=== PATIENT | female | born 1965 ===

== ENCOUNTER 2023-05-19 18:08 | Emergency (ER) | payer OTHER, SELFPAY ==
[2023-05-19 18:13] VITALS: BP 124/78; PULSE 76; O2SAT 97
[2023-05-19 18:23] VITALS: BP 107/57; PULSE 68; RESP 16; TEMP 36.8; O2SAT 97; BMI 22.9
--- NOTE | 2023-05-19 18:34 | ECG_ITS ---
Test Reason : ABD PAIN Blood Pressure : / mmHG Vent. Rate : 069 BPM Atrial Rate : 069 BPM P-R Int : 152 ms QRS Dur : 084 ms QT Int : 406 ms P-R-T Axes : 017 000 032 degrees QTc Int : 435 ms Normal sinus rhythm Normal ECG When compared with ECG of 22-JUN-2007 04:10, No significant change was found Referred By: Malia Ramirez Electronically Signed By:NJ SETHI MD
--- NOTE | 2023-05-19 18:38 | ED_ITS ---
HPI - General Adult General Chief complaint: General Medical Stated complaint: abd, headache, per ems Time Seen by Provider: 05/19/23 18:32 Source: patient Mode of arrival: ambulatory Limitations: no limitations History of Present Illness HPI narrative: Patient comes to the emergency room bones early [facility]. Patient is being treated for SI. Patient came to the ED complaining of 3 days of headache, anxiety, abdominal pressure. Patient states that she has been very anxious, has experienced multiple losses in her family and is under a lot of stress. Patient denies fever chills, no URI or UTI symptoms. Related Data Previous Rx's Medication Instructions Recorded hyoscyamine sulfate 0.125 mg tablet 0.125 mg PO QID PRN dyspepsia #10 05/19/23 tabs Allergies Allergy/AdvReac Type Severity Reaction Status Date / Time levonorgestrel-ethinyl Allergy Unknown ITCHY- Unverified 07/12/20 16:07 estradiol SWOLLEN [From Seasonale] EYES Review of Systems Review of Systems: Constitutional : No Weight loss, No Fever, No Chills, No Night Sweats, No Fatigue, No Malaise ENT/Mouth : No Hearing loss, No Ear Pain, No Nasal Congestion, No Sinus Pain, No Hoarseness, No sore throat, No Rhinorrhea, No Swallowing Difficulty Eyes: No Eye Pain, No Swelling, No Redness, No Foreign Body, No Discharge, No Vision Changes Cardiovascular : No Chest Pain, No SOB, No Dyspnea on Exertion, No Orthopnea, No Edema, No Palpitations Respiratory : No Cough, No Sputum, No Wheezing, No Smoke Exposure, No Dyspnea Gastrointestinal : Complaining of nausea and vomiting, No Diarrhea, No Constipation, complaining of abdominal pressure, no hematochezia or melena Genitourinary : no irregular bleeding, No Dysuria, No Urinary Frequency, No Hematuria, No Urinary Incontinence, No Urgency, No Flank Pain, No Urinary Flow Changes, No Hesitancy Musculoskeletal : No joint pain, No Myalgias, No Joint Swelling Skin : No Skin Lesions, No rash Neuro : No Weakness, No Numbness, No Paresthesias, No Loss of Consciousness, No Dizziness, complaining of Headache Psych : No Anxiety/Panic, No Depression, No SI/HI/AH/VH, No Social Issues, Heme/Lymph: No Bruising, No Bleeding,No Lymphadenopathy Endocrine : No Polyuria, No Polydipsia, No Temperature Intolerance [facility] Past Medical History Medical History (Updated 05/19/23 @ 21:04 by Malia Ramirez MD) Anxiety and depression Social History Social History Alcohol intake: never Smoked in Last 30 Days: Yes Use of substances other than those prescribed or required for medical reasons: No Substance Use Type: Heroin Substance Use Frequency: Occasionally Any prior treatment program specific to substance use: Yes (last heroin use 1 week ago) Advance Directives: No Advance Directives Information Provided: No Patient : No Physical Exam ED Vital Signs: Vital Signs - 24 hr 05/19/23 18:23 05/19/23 19:31 05/19/23 20:00 Temperature 98.3 F 98.3 F 98.7 F Pulse Rate 68 74 71 Respiratory Rate 16 16 16 Blood Pressure 107/57 L 85/44 L 95/48 L Pulse Oximetry 97 98 98 Oxygen Delivery Method Room Air Room Air Room Air BMI result Body Mass Index 22.9 Const Other: Appearance: Alert. Oriented X3. No acute distress. Well-appearing Eyes: Pupils equal, round and reactive to light. ENT: Pharynx normal. Neck: Normal inspection. Neck supple. No lymph nodes noted. No crepitus CVS: Normal heart rate and rhythm. Pulses normal. Normal S1 and S2 Respiratory: No respiratory distress. Breath sounds normal. No Wheezing. No rales Abdomen: Soft and nontender. No rigidity. No distention. Skin: Skin warm and dry. Normal skin color. Normal skin turgor. Extremities: No lower extremity edema. No Lacerations. No Rash Neuro: Oriented X 3. No motor deficit. No sensory deficit. Moving all extremities. No slurred speech. CN 2 through 12 grossly intact Psych: calm, cooperative, normal affect Course Course Course Narrative: -all of patient's labs are pending. -patient's physical exam benign, patient did not have any abdominal pain on palpation. Medications Administered Discontinued Medications Generic Name Dose Route Start Last Admin Trade Name Freq PRN Reason Stop Dose Admin Acetaminophen 975 mg 05/19/23 18:41 05/19/23 18:51 Acetaminophen 325 Mg Tablet PO 05/19/23 18:42 975 mg ONCE ONE Administration Medical Decision Making Medical Decision Making [facility] Narrative: -my interpretation of labs: White blood cell count within normal limits, chemistry unremarkable, LFTs within normal limits -physical exam prior to discharge, no abdominal pain on palpation. -no need for imaging at this time, patient states she feels better, abdominal pain likely secondary to anxiety versus viral syndrome. Differential Diagnosis Differential Diagnoses: The differential diagnosis associated with the presentation includes (Syndrome, anxiety, gastritis) Lab Data MDM Lab Attestation statement: I reviewed the patient's lab results. 05/19/23 18:55 05/19/23 18:55 Labs: Lab Results 05/19/23 05/19/23 05/19/23 Range/Units 18:55 18:55 18:55 WBC 5.7 (4.8-10.8) X10*3/uL RBC 3.65 L (4.20-5.50) X10*6/uL Hgb 11.3 L (12.0-16.0) g/dl Hct 33.4 L (37.0-47.0) % MCV 91.5 (80.0-98.0) fL MCH 31.0 (27.0-33.0) pg MCHC 33.8 (31.0-35.0) g/dl RDW 13.6 (11.0-16.0) % Plt Count 273 (160-400) X10*3/uL MPV 10.2 (9.4-12.3) fL Immature Gran % (Auto) 0.2 (0.0-0.4) % Neut % (Auto) 40.2 L (45-73) % Lymph % (Auto) 46.6 H (20-40) % Maverick % (Auto) 9.7 (2-11) % Eos % (Auto) 2.8 (0-4) % Baso % (Auto) 0.5 (0-2) % Lymph # (Auto) 2.7 (1.2-4.9) X10*3/uL Maverick # (Auto) 0.6 (0.1-1.2) X10*3/uL Eos # (Auto) 0.2 (0.0-0.4) X10*3/uL Baso # (Auto) 0.0 (0.0-0.2) X10*3/uL Abs Immat Gran (auto) 0.01 (0.00-0.03) X10*3/uL Absolute Neuts (auto) 2.3 (2.0-8.3) x10*3/uL Absolute Nucleated RBC 0.000 (0.0-0.012) X10*3/uL Nucleated RBC % (auto) 0.0 (0.0-0.2) /100WBC Sodium 139 (135-145) mmol/L Potassium 4.0 (3.3-5.1) mmol/L Chloride 107 (96-108) mmol/L Carbon Dioxide 25 (22-29) mmol/L Anion Gap 11 L (12-20) BUN 29 H (9-16) mg/dL Creatinine 1.19 (0.5-1.4) mg/dL Estim Creat Clear Calc 45.0 Estimated GFR 47 Random Glucose 104 (60-115) mg/dL Calcium 9.3 (8.4-10.2) mg/dL Total Bilirubin 0.2 (0.0-1.0) mg/dL Direct Bilirubin < 0.2 (0.0-0.5) mg/dL AST 13 (5-31) U/L ALT 13 (0-31) U/L Alkaline Phosphatase 80 (39-117) U/L Troponin I High Sens < 2.7 (<3.5-17.0) ng/L Total Protein 6.2 L (6.5-8.0) g/dL Albumin 3.6 (3.5-5.0) g/dL Lipase 32 (8-78) U/L Urine Color Urine Appearance Urine pH (5.0-9.0) Ur Specific [place] (1.005-1.025) Urine Protein (Neg-Trace) mg/dL Urine Glucose (UA) (Negative) mg/dL Urine Ketones (Negative) mg/dL Urine Blood (Negative) Urine Nitrite (Negative) Ur Leukocyte Esterase (Negative) 05/19/23 Range/Units 19:30 WBC (4.8-10.8) X10*3/uL RBC (4.20-5.50) X10*6/uL Hgb (12.0-16.0) g/dl Hct (37.0-47.0) % MCV (80.0-98.0) fL MCH (27.0-33.0) pg MCHC (31.0-35.0) g/dl RDW (11.0-16.0) % Plt Count (160-400) X10*3/uL MPV (9.4-12.3) fL Immature Gran % (Auto) (0.0-0.4) % Neut % (Auto) (45-73) % Lymph % (Auto) (20-40) % Maverick % (Auto) (2-11) % Eos % (Auto) (0-4) % Baso % (Auto) (0-2) % Lymph # (Auto) (1.2-4.9) X10*3/uL Maverick # (Auto) (0.1-1.2) X10*3/uL Eos # (Auto) (0.0-0.4) X10*3/uL Baso # (Auto) (0.0-0.2) X10*3/uL Abs Immat Gran (auto) (0.00-0.03) X10*3/uL Absolute Neuts (auto) (2.0-8.3) x10*3/uL Absolute Nucleated RBC (0.0-0.012) X10*3/uL Nucleated RBC % (auto) (0.0-0.2) /100WBC Sodium (135-145) mmol/L Potassium (3.3-5.1) mmol/L Chloride (96-108) mmol/L Carbon Dioxide (22-29) mmol/L Anion Gap (12-20) BUN (9-16) mg/dL Creatinine (0.5-1.4) mg/dL Estim Creat Clear Calc Estimated GFR Random Glucose (60-115) mg/dL Calcium (8.4-10.2) mg/dL Total Bilirubin (0.0-1.0) mg/dL Direct Bilirubin (0.0-0.5) mg/dL AST (5-31) U/L ALT (0-31) U/L Alkaline Phosphatase (39-117) U/L Troponin I High Sens (<3.5-17.0) ng/L Total Protein (6.5-8.0) g/dL Albumin (3.5-5.0) g/dL Lipase (8-78) U/L Urine Color Yellow Urine Appearance Clear Urine pH 5.5 (5.0-9.0) Ur Specific [place] 1.025 (1.005-1.025) Urine Protein Negative (Neg-Trace) mg/dL Urine Glucose (UA) Negative (Negative) mg/dL Urine Ketones Trace (Negative) mg/dL Urine Blood Negative (Negative) Urine Nitrite Negative (Negative) Ur Leukocyte Esterase Negative (Negative) Discharge Plan Discharge Clinical Impression: Abdominal pain Patient Disposition: Home, Self-Care Instructions: Abdominal Pain (ED) Additional Instructions: Please follow-up with your primary care physician tomorrow. If you have any worsening or new symptoms, please return to the emergency room or call 911 Prescriptions: New hyoscyamine sulfate 0.125 mg tablet 0.125 mg PO QID PRN (Reason: dyspepsia) Qty: 10 0RF
[2023-05-19] MEDS: Acetaminophen 325 MG TABLET 975 MG PO (18:51)
[2023-05-19 18:59] LABS: MANUAL DIFF FLAG NO
[2023-05-19 19:14] LABS: Alanine Aminotransferase 13 U/L (0-31); Albumin Level 3.6 g/dL (3.5-5.0); Alkaline Phosphatase 80 U/L (39-117); Anion Gap 11 (12-20); Aspartate Amino Transferase 13 U/L (5-31); Bilirubin Direct < 0.2 mg/dL (0.0-0.5); Bilirubin Total 0.2 mg/dL (0.0-1.0); Blood Urea Nitrogen 29 mg/dL (9-16); Calcium 9.3 mg/dL (8.4-10.2); Carbon Dioxide 25 mmol/L (22-29); Chloride 107 mmol/L (96-108); Estimated Glomerular Filt Rate 47; Glucose Random 104 mg/dL (60-115); Lipase 32 U/L (8-78); Sodium 139 mmol/L (135-145); Total Protein 6.2 g/dL (6.5-8.0)
[2023-05-19 19:27] LABS: Troponin-I High Sensitivity < 2.7 ng/L (<3.5-17.0)
[2023-05-19 19:31] VITALS: BP 85/44; PULSE 74; RESP 16; TEMP 36.8; O2SAT 98
[2023-05-19 19:34] LABS: Basophils Percent Auto 0.5 % (0-2); Eosinophils Absolute Auto 0.2 X10*3/uL (0.0-0.4); Eosinophils Percent Auto 2.8 % (0-4); Hematocrit 33.4 % (37.0-47.0); Hemoglobin 11.3 g/dl (12.0-16.0); Imm Gran Abs Auto 0.01 X10*3/uL (0.00-0.03); Imm Gran Pct Auto 0.2 % (0.0-0.4); Lymphocytes Absolute Auto 2.7 X10*3/uL (1.2-4.9); Lymphocytes Percent Auto 46.6 % (20-40); Mean Corpuscular HGB Conc 33.8 g/dl (31.0-35.0); Mean Corpuscular Volume 91.5 fL (80.0-98.0); Mean Platelet Volume 10.2 fL (9.4-12.3); Monocytes Absolute Auto 0.6 X10*3/uL (0.1-1.2); Monocytes Percent Auto 9.7 % (2-11); Neutrophils Absolute Auto 2.3 x10*3/uL (2.0-8.3); Neutrophils Percent Auto 40.2 % (45-73); Platelet Count 273 X10*3/uL (160-400); Red Blood Count 3.65 X10*6/uL (4.20-5.50); Red Cell Distribution Width 13.6 % (11.0-16.0); White Blood Count 5.7 X10*3/uL (4.8-10.8)
[2023-05-19 19:39] LABS: Appearance Urine Clear; Color Urine Yellow; Glucose Urine UA Negative (Negative); Leukocyte Esterase Urine Negative (Negative); Nitrite Urine Negative (Negative); PH 5.5 (5.0-9.0); Specific Gravity - Urine 1.025 (1.005-1.025); Urine Blood Negative (Negative); Urine Ketones Trace mg/dL (Negative); Urine Protein Negative (Neg-Trace)
[2023-05-19 20:00] VITALS: BP 95/48; PULSE 71; RESP 16; TEMP 37.1; O2SAT 98
[2023-05-19 21:01] VITALS: BP 98/60; PULSE 67; RESP 16; TEMP 36.8; O2SAT 98
[2023-05-19] MEDS: PHENobarb/Hyoscy/Atropine/Scop 10 ML ELIXIR 5 ML PO (22:16)
== END 2023-05-19 22:18 | disposition home or self-care (01) ==
PROVIDERS: Emergency Provider Emergency Medicine
DX: R10.9 Unspecified abdominal pain (principal); R51.9 Headache, unspecified; F41.8 Other specified anxiety disorders; F17.200 Nicotine dependence, unspecified, uncomplicated; Z79.899 Other long term (current) drug therapy
CPT/HCPCS: 36415; 80048; 80076; 81003; 83690; 84484; 85025; 93005; 99283; 99284; 99285

== ENCOUNTER → 2023-05-19 18:34 | Outpatient (BNV) | payer OTHER, SELFPAY | PROVIDERS: Emergency Provider Emergency Medicine; Visit Provider Internal Medicine Cardiovascular Disease | DX: R10.9 Unspecified abdominal pain (principal) | CPT/HCPCS: 93010 ==

== ENCOUNTER 2023-05-22 14:59 | Emergency (ER) | payer OTHER, SELFPAY ==
--- NOTE | ~2023-05-22 | CT_ITS ---
EXAMINATION: CT HEAD WITHOUT CONTRAST CLINICAL INFORMATION: Intractable headache, pressure, reports history of aneurysm. COMPARISON: None available. TECHNIQUE: Contiguous axial imaging was performed from the skull base to vertex without intravenous administration of contrast. Coronal and sagittal reformatted images were obtained. This CT examination was performed using dose optimization techniques as appropriate, variously including the following: *Automated exposure control *Adjustment of mA and/or kV according to patient size (this includes techniques or standardized protocols for targeted exams where dose is matched to indication/reason for exam; i.e. extremities or head) *Use of iterative reconstruction technique DLP: 600 mGy-cm FINDINGS: The cortical sulci are normal. The lateral ventricles are symmetrical. The third and fourth ventricles are in their normal midline position. The basilar and prepontine cisterns are unremarkable. There is no acute intra or extracerebral abnormality. There is no mass effect or midline shift. Sections through the bony calvarium are unremarkable. The paranasal sinuses are clear. The bony orbits and orbital contents are unremarkable. Moderate debris is seen in the external auditory canals bilaterally. CT/CT head/brain wo IV con IMPRESSION: No acute intracranial pathology.
--- NOTE | ~2023-05-22 | CT_ITS ---
EXAMINATION: CT ANGIOGRAM NECK WITH CONTRAST CT ANGIOGRAM BRAIN WITH CONTRAST CLINICAL INFORMATION: Headache for 5 days. Reported aneurysm. COMPARISON: CT head 05/22/2023. TECHNIQUE: Test bolus sequences followed by intravenous administration 70 mL of Omnipaque 350. Helical imaging was performed in the axial plane from the thoracic inlet to the skull vertex. Delayed postcontrast imaging of the head was also performed. The data was processed at the lead technologist in cytogenetics workstation for generation of MIP sequences. Angled MIPs and volume rendered reformatted images were also generated at an offline 3D workstation under concurrent supervision. Stenoses are assessed in accordance with NASCET criteria unless otherwise indicated. This CT examination was performed using dose optimization techniques as appropriate, variously including the following: *Automated exposure control *Adjustment of mA and/or kV according to patient size (this includes techniques or standardized protocols for targeted exams where dose is matched to indication/reason for exam; i.e. extremities or head) *Use of iterative reconstruction technique FINDINGS: BRAIN: [There is no intracranial hemorrhage, hydrocephalus, extra-axial surface collection, midline shift, or other herniation pattern. Farfan to white matter differentiation is diffusely maintained without evidence of an evolved acute territorial infarct. The basilar cisterns are preserved. No significant soft tissue abnormality. No acute osseous abnormality. The paranasal sinuses and the mastoid air cells are well aerated.] CERVICAL SOFT TISSUES AND LUNG APICES: There is multilevel cervical spondylosis. No significant soft tissue findings within the neck. A 9 mm hypodense nodule within the inferior left thyroid lobe is below size criteria for follow-up The imaged upper lungs are clear. NECK CTA: Left common carotid artery arises from the brachiocephalic artery, an anatomic variant. Proximal arch vessels are non-stenotic. The vertebral arteries are codominant. No significant ostial stenosis is visualized on either side. Both vertebral arteries are widely patent throughout their extracranial cervical course. Both common and internal carotid arteries are normal in course and caliber.] BRAIN CTA: [There is normal opacification of major intracranial arteries. No focal flow-limiting stenosis nor discrete proximal large artery occlusion. A tapered 1.5 mm vascular excrescence at the origin of the left posterior communicating artery most likely reflects an infundibulum. Normal variant junctional prominence of the A1/A2 junctions. Timing of the contrast bolus allows assessment of the major dural venous sinuses, which all opacify normally] CT/CT angio head neck IMPRESSION: No acute intracranial findings. Unremarkable CT of the head and neck. A tapered 1.5 mm vascular excrescence at the origin of the left posterior communicating artery most likely reflects an infundibulum. An aneurysm is felt to be much less likely. There is junctional prominence of the A1/A2 junctions.
[2023-05-22 15:12] VITALS: BP 118/64; PULSE 71; O2SAT 99
[2023-05-22 15:17] VITALS: PULSE 72; RESP 18; TEMP 36.9; O2SAT 98; BMI 24.6
--- OUTSIDE RECORDS SUMMARY | 2023-05-22 15:32 | XMS_ITS | Continuity of Care Document ---
Author Name Unknown Organization [facility] Address [address] [place] [address]- Care Team Providers Care Launch Operator Name Role Phone Fawn REAL, Joss Martin Primary Care Physician Encounter [facility] Date(s): 01/21/23 - 03/06/23 [facility] [address]- Attending Physician: Not on Staff, Attending MD Allergies, Adverse Reactions, Alerts No Known Allergies Immunizations Given and Recorded Vaccine Date Status Refusal Reason [id number] 12y+ bivalent booster vax 09/29/22 Given influenza virus vaccine, inactivated 09/29/22 Give n influenza virus vaccine, inactivated 08/15/19 Give n influenza virus vaccine, inactivated 08/02/18 Give n influenza virus vaccine, inactivated 12/09/17 Give n influenza virus vaccine, inactivated 08/05/16 Give n SARS-CoV-2 (COVID-19) mRNA BNT-162b2 vac 05/07/21 Given SARS-CoV-2 (COVID-19) mRNA BNT-162b2 vac 04/16/21 Recorded zoster vaccine, inactivated 10/25/18 Given zoster vaccine, inactivated 08/13/18 Given Meningococcal Conjugate Vaccine 08/02/18 Given Meningococcal Conjugate Vaccine 12/09/17 Given pneumococcal 13-valent vaccine 08/05/16 Given Adacel (Tdap) (oldterm) 04/14/14 Recorded Pneumococcal Vaccine (oldterm) 04/22/09 Given Medications acetaminophen 650 mg oral tablet, extended release 2 tablet, By Mouth, Every 8 hours, PRN NEEDED FOR MODERATE PAIN, covering for PCP, # 50 tablet, 0 Refills, Maintenance, 02/13/23 13:17:00 EDT, [facility], 164, cm, 01/19/23 15:23:00 EDT, Height, 68.18, kg, 01/15/23 10:48:00 EDT, . Start Date: 02/13/23 Stop Date: 10/26/24 Status: Ordered albuterol 0.083% inhalation solution 3 mL = 2.5 mg, Inhalation, Every 6 hours, PRN for wheezing, home delivery, # 25 each, 2 Refills, Maintenance, 01/01/23 9:12:00 EST, Solution, [facility], 164, cm, 01/01/23 8:52:00 EST, Height, 73, kg, 05/23/21 15:48:00 EDT, Dry Weight Start Date: 01/01/23 Status: Ordered Alcohol Pads See Instructions, # 200 each, Refills 11, Tot. Refills 11, Maintenance, use as directed for Type 1 Diabetes Mellitus, 12/12/21 15:21:00 EST, Compound, 164, cm, 05/23/21 15:48:00 EDT, Height, 73, kg, 05/23/21 15:48:00 EDT, Dry Weight Start Date: 12/12/21 Stop Date: 12/07/22 Status: Ordered atorvastatin 10 mg oral tablet 1 tablet = 10 mg, By Mouth, Daily, # 30 tablet, 11 Refills, Maintenance, 03/19/22 10:39:00 EDT, [facility], 164, cm, 05/23/21 15:48:00 EDT, Height, 73, kg, 05/23/21 15:48:00 EDT, DryWeight Start Date: 03/19/22 Status: Ordered cholecalciferol 1000 intl units oral tablet 1 tablet = 1,000 International_Units, By Mouth, Daily, # 30 tablet, 11 Refills, Maintenance, 02/18/23 7:13:00 EDT, Tablet, [facility], 164, cm, 01/19/23 15:23:00 EDT, Height, 68.18, kg, 01/15/23 10:48:00 EDT, Dry Weight Start Date: 02/18/23 Status: Ordered Descovy 200 mg-25 mg oral tablet 1 tablet, By Mouth, Daily, # 30 tablet, 3 Refills, Maintenance, 11/18/22 18:13:00 EST, Tablet, [facility], 1 tablet By Mouth Daily,x30 days, 164, cm, 11/18/22 16:28:00 EST, Height, 73, kg, 05/23/21 15:48:00 EDT, Dry Weight Start Date: 11/18/22 Stop Date: 03/18/23 Status: Ordered dolutegravir 50 mg oral tablet 1 tablet = 50 mg, By Mouth, Daily, # 30 tablet, 3 Refills, Maintenance, 11/18/22 18:13:00 EST, Tablet, [facility], 164, cm, 11/18/22 16:28:00 EST, Height, 73, kg, 05/23/21 15:48:00 EDT, Dry Weight Start Date: 11/18/22 Stop Date: 03/18/23 Status: Ordered Flonase 50 mcg/inh nasal spray 1 sprays, Nares, Both, 2 times a day, # 16 Gm, 0 Refills, Maintenance, 01/01/23 9:25:00 EST, [place],[facility], Partial fill upon patient request if the prescription is for a schedule II opioid drug., 1 sprays Nares, Both 2 times a da... Start Date: 01/01/23 Status: Ordered Freestyle Lite Lancets See Instructions, # 100 each, Refills 11, Tot. Refills 11, Maintenance, Dx: Type 2 Diabetes Mellitus, E11.9 Use as directed, TID, 02/18/23 7:21:00 EDT, Compound, 164, cm, 01/19/23 15:23:00 EDT, Height, 68.18, kg, 01/15/23 10:48:00 EDT, Dry Weight Start Date: 02/18/23 Stop Date: 02/13/24 Status: Ordered Freestyle Lite Monitor See Instructions, # 1 each, Refills 0, Tot. Refills 0, Maintenance, Dx: Type 2 Diabetes Mellitus (E11.9) Use as directed VINICIUS: 99, 11/13/22 13:12:00 EST, Supply, 164, cm, 09/29/22 11:08:00 EST, Height, 73, kg, 05/23/21 15:48:00 EDT, Dry Weight Start Date: 11/13/22 Stop Date: 12/13/22 Status: Ordered Freestyle Lite Test Strips See Instructions, # 100 each, Refills 11, Tot. Refills 11, Maintenance, Dx: Type 2 Diabetes Mellitus, E11.9 Use as directed, TID, 02/18/23 7:18:00 EDT, Compound, 164, cm, 01/19/23 15:23:00 EDT, Height, 68.18, kg, 01/15/23 10:48:00 EDT, Dry Weight Start Date: 02/18/23 Stop Date: 02/13/24 Status: Ordered melatonin 5 mg oral tablet 1 tablet = 5 mg, By Mouth, Daily at bedtime, PRN for insomnia, # 60 tablet, 4 Refills, Maintenance,07/08/22 13:18:00 EDT, Tablet, [facility], 164, cm, 05/23/21 15:48:00 EDT, Height,73, kg, 05/23/21 15:48:00 EDT, Dry Weight Start Date: 07/08/22 Status: Ordered metFORMIN 500 mg oral tablet 1 tablet = 500 mg, By Mouth, Daily, # 30 tablet, 4 Refills, Maintenance, 12/18/22 16:42:00 EST, Tablet, [facility], 164, cm, 11/18/22 16:28:00 EST, Height, 73, kg, 05/23/21 15:48:00 EDT, Dry Weight Start Date: 12/18/22 Status: Ordered Methadone = 20 mg, By Mouth, Daily, 0 Refills, Maintenance, 12/23/19 16:27:00 EST, Partial fill upon patient request Start Date: 12/23/19 Status: Ordered MiraLax oral powder for reconstitution See Instructions, By Mouth, For constipation: one capful by mouth, every day, titrate up to effect if need be., # 255 Gm, 3 Refills, Maintenance, 01/19/23 14:48:00 EDT, [facility], For constipation: one capful by mouth, every day, tit... Start Date: 01/19/23 Status: Ordered mirtazapine 15 mg oral tablet 1 tablet = 15 mg, By Mouth, Daily at bedtime, # 90 tablet, 1 Refills, Maintenance, 01/16/23 11:22:00 EDT, Tablet, [facility], Partial fill upon patient request if the prescription isfor a schedule II opioid drug., 164, cm, 01/15/23 1... Start Date: 01/16/23 Stop Date: 02/15/23 Status: Ordered nicotine 14 mg/24 hr transdermal film, extended release 1 patch, Topically, Daily, # 30 patch, 1 Refills, Maintenance, 02/23/23 4:50:00 EDT, Patch, [facility], Partial fill upon patient request if the prescription is for a schedule II opioid drug., 1 patch Topically Daily, 164, cm, ... Start Date: 02/23/23 Status: Ordered omeprazole 40 mg oral enteric coated capsule 1 capsule = 40 mg, By Mouth, 2 times a day, # 60 capsule, 11 Refills, Maintenance, 03/19/22 10:38:00 EDT, EC Capsule, [facility], dose increased, 164, cm, 05/23/21 15:48:00 EDT, Height, 73, kg, 05/23/21 15:48:00 EDT, Dry Weight Start Date: 03/19/22 Stop Date: 03/14/23 Status: Ordered one cane one cane, See Instructions, # 1 Unknown, Refills 0, Tot. Refills 0, Maintenance, one cane to be dispensed to pt, 05/23/21 19:54:00 EDT, Supply Start Date: 05/23/21 Status: Ordered prazosin 2 mg oral capsule 1 capsule = 2 mg, By Mouth, Daily at bedtime, # 90 capsule, 1 Refills, Maintenance, 01/16/23 11:21:00 EDT, [facility], Partial fill upon patient request if the prescription is for a schedule II opioid drug., 164, cm, 01/15/23 10:48:00... Start Date: 01/16/23 Stop Date: 07/15/23 Status: Ordered Senna 8.6 mg oral tablet 17.2 mg, 2, tablet, By Mouth, Daily at bedtime, for 30 days, # 60 tablet, Refills 4, Tot. Refills 4, Acute, 06/14/23 11:16:00 EDT, 01/15/23 11:16:00 EDT, Route to Pharmacy Electronically, [facility], Partial fill upon patient request... Start Date: 01/15/23 Stop Date: 06/14/23 Status: Ordered sertraline 50 mg oral tablet 1 tablet = 50 mg, By Mouth, Daily, # 90 tablet, 1 Refills, Maintenance, 01/01/23 17:40:00 EST, Tablet, [facility], Partial fill upon patient request if the prescription is for a schedule II opioid drug., 164, cm, 01/01/23 8:52:00 EST,... Start Date: 01/01/23 Status: Ordered topiramate 50 mg oral tablet 1 tablet = 50 mg, By Mouth, 2 times a day, # 60 tablet, 7 Refills, Maintenance, 01/15/23 11:16:00 EDT, Tablet, [facility], 164, cm, 01/15/23 10:48:00 EDT, Height, 68.18, kg, 01/15/2310:48:00 EDT, Dry Weight Start Date: 01/15/23 Stop Date: 09/12/23 Status: Ordered Ventolin HFA 108 mcg/inh inhalation aerosol with adapter 2 puffs, Inhalation, Every 4 hours, PRN for wheezing, # 2 each, 5 Refills, Maintenance, 01/15/23 11:10:00 EDT, Aerosol, [facility], 164, cm, 01/15/23 10:48:00 EDT, Height, 68.18, kg,01/15/23 10:48:00 EDT, Dry Weight Start Date: 01/15/23 Stop Date: 07/08/24 Status: Ordered Problem List Condition Confirmation Course Effective Dates Status H ealth Status Informant Anxiety Confirmed Active Asthma Confirmed Active ADHD (attention deficit hyperactivity disorder) Confirmed Active Cocaine abuse Confirmed Active Depression Confirmed Active GERD - Gastro-esophageal reflux disease Confirmed Active HIV disease Confirmed Active Hyperlipidemia Confirmed Active Prediabetes Confirmed Active Insomnia Confirmed Active Migraine Confirmed Active Heroin use Confirmed Active Opiate addiction Confirmed Active *[id number] [employer]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 [address]- Name: Joss Augustine MD Position: [facility] Primary Care Physician Member Role: PCP Address: Address: [address] [place] [id number]- Name: Radha Murillo RN Position: [facility] Clutch Assembler Member Role: Primary Care Nurse Care Team Related Persons Name: SARWAT PEARL Address: [address] [place] [address] Name: CRYSTAL PEARL Address: home [address] [place] [address] Name: DARRICK RENEE
--- OUTSIDE RECORDS SUMMARY | 2023-05-22 15:32 | XMS_ITS | Continuity of Care Document ---
Author Name Unknown Organization [facility] Address Unknown Care Team Providers Care Lead Web Application Developer Name Role Phone Joss Augustine MD Primary Care Physician Encounter [facility] [place] [place] Date(s): 09/11/21 - 10/13/21 [facility] Encounter Diagnosis Dizziness(Discharge Diagnosis) - 09/13/21 HIV disease(Discharge Diagnosis) - 09/13/21 Attending Physician: Yves Jackson MD Admitting Physician: Yves Jackson MD Allergies, Adverse Reactions, Alerts Substance Reaction Severity Status NKA Active Immunizations Given and Recorded Vaccine Date Status Refusal Reason SARS-CoV-2 (COVID-19) mRNA BNT-162b2 vac 05/07/21 Given SARS-CoV-2 (COVID-19) mRNA BNT-162b2 vac 04/16/21 Recorded influenza virus vaccine, inactivated 08/15/19 Give n influenza virus vaccine, inactivated 08/02/18 Give n influenza virus vaccine, inactivated 12/09/17 Give n influenza virus vaccine, inactivated 08/05/16 Give n zoster vaccine, inactivated 10/25/18 Given zoster vaccine, inactivated 08/13/18 Given Meningococcal Conjugate Vaccine 08/02/18 Given Meningococcal Conjugate Vaccine 12/09/17 Given pneumococcal 13-valent vaccine 08/05/16 Given Adacel (Tdap) (oldterm) 04/14/14 Recorded Pneumococcal Vaccine (oldterm) 04/22/09 Given Medications albuterol 0.083% inhalation solution 3 mL = 2.5 mg, Inhalation, Every 6 hours, PRN for wheezing, home delivery, # 25 each, 2 Refills, Maintenance, 09/22/17 15:46:55, Solution Start Date: 09/22/17 Status: Ordered Alcohol Pads See Instructions, # 200 each, Refills 11, Tot. Refills 11, Maintenance, use as directed for Type 1 Diabetes Mellitus, 12/05/20 16:04:00 EST, Compound, 163, cm, 07/23/20 13:59:00 EDT, Height, 80.45, kg, 07/19/20 11:52:00 EDT, Dry Weight Start Date: 12/05/20 Stop Date: 11/30/21 Status: Ordered atorvastatin 10 mg oral tablet 1 tablet = 10 mg, By Mouth, Daily, # 30 tablet, 11 Refills, Maintenance, 02/25/21 10:33:00 EDT, [facility], 163, cm, 07/23/20 13:59:00 EDT, Height, 80.45, kg, 07/19/20 11:52:00 EDT, Dry Weight Start Date: 02/25/21 Status: Ordered cholecalciferol 1000 intl units oral tablet 1 tablet = 1,000 International_Units, By Mouth, Daily, # 30 tablet, 11 Refills, Maintenance, 08/29/21 10:17:00 EDT, Tablet, [facility], 164, cm, 05/23/21 15:48:00 EDT, Height, 73, kg, 05/23/21 15:48:00 EDT, Dry Weight Start Date: 08/29/21 Status: Ordered Descovy 200 mg-25 mg oral tablet 1 tablet, By Mouth, Daily, # 30 tablet, 2 Refills, Maintenance, 09/24/21 6:24:00 EST, Tablet, [facility], 1 tablet By Mouth Daily,x30 days, 164, cm, 05/23/21 15:48:00 EDT, Height, 73, kg, 05/23/21 15:48:00 EDT, Dry Weight Start Date: 09/24/21 Stop Date: 12/23/21 Status: Ordered dolutegravir 50 mg oral tablet 1 tablet = 50 mg, By Mouth, Daily, # 30 tablet, 2 Refills, Maintenance, 09/24/21 6:24:00 EST, Tablet, [facility], 164, cm, 05/23/21 15:48:00 EDT, Height, 73, kg, 05/23/21 15:48:00 EDT, Dry Weight Start Date: 09/24/21 Stop Date: 12/23/21 Status: Ordered Freestyle Lite Lancets See Instructions, # 100 each, Refills 11, Tot. Refills 11, Maintenance, Dx: Type 2 Diabetes Mellitus, E11.9 Use as directed, TID, 01/28/21 17:13:00 EDT, Compound, 163, cm, 07/23/20 13:59:00 EDT, Height, 80.45, kg, 07/19/20 11:52:00 EDT, Dry Weight Start Date: 01/28/21 Stop Date: 01/23/22 Status: Ordered Freestyle Lite Test Strips See Instructions, # 100 each, Refills 11, Tot. Refills 11, Maintenance, Dx: Type 2 Diabetes Mellitus, E11.9 Use as directed, TID, 01/28/21 17:13:00 EDT, Compound, 163, cm, 07/23/20 13:59:00 EDT, Height, 80.45, kg, 07/19/20 11:52:00 EDT, Dry Weight Start Date: 01/28/21 Stop Date: 01/23/22 Status: Ordered gabapentin 100 mg oral capsule 100 mg, 1, capsule, By Mouth, 3 times a day, # 90 capsule, Refills 5, Tot. Refills 5, Maintenance, 07/16/21 7:01:00 EDT, Route to Pharmacy Electronically, [facility], 164, cm, 05/23/21 15:48:00 EDT, Height, 73, kg, 05/23/21 15:48:00 E... Start Date: 07/16/21 Status: Ordered melatonin 5 mg oral tablet 1 tablet = 5 mg, By Mouth, Daily at bedtime, PRN for insomnia, # 60 tablet, 11 Refills, Maintenance, 05/16/21 3:02:00 EDT, Tablet, [facility], 163, cm, 07/23/20 13:59:00 EDT, Height,80.45, kg, 07/19/20 11:52:00 EDT, Dry Weight Start Date: 05/16/21 Status: Ordered metFORMIN 500 mg oral tablet 1 tablet = 500 mg, By Mouth, Daily, # 30 tablet, 11 Refills, Maintenance, 03/26/21 14:38:00 EDT, Tablet, [facility], 163, cm, 07/23/20 13:59:00 EDT, Height, 80.45, kg, 07/19/20 11:52:00 EDT, Dry Weight Start Date: 03/26/21 Status: Ordered Methadone = 20 mg, By Mouth, Daily, 0 Refills, Maintenance, 12/23/19 16:27:00 EST, Partial fill upon patient request Start Date: 12/23/19 Status: Ordered omeprazole 40 mg oral enteric coated capsule 1 capsule = 40 mg, By Mouth, 2 times a day, # 60 capsule, 11 Refills, Maintenance, 02/25/21 10:36:00 EDT, EC Capsule, [facility], dose increased, 163, cm, 07/23/20 13:59:00 EDT, Height, 80.45, kg, 07/19/20 11:52:00 EDT, Dry Weight Start Date: 02/25/21 Stop Date: 02/20/22 Status: Ordered one cane one cane, See Instructions, # 1 Unknown, Refills 0, Tot. Refills 0, Maintenance, one cane to be dispensed to pt, 05/23/21 19:54:00 EDT, Supply Start Date: 05/23/21 Status: Ordered sertraline 100 mg oral tablet 1 tablet = 100 mg, By Mouth, Daily, # 90 tablet, 3 Refills, Maintenance, 01/17/19 11:48:28 EDT, Tablet Start Date: 01/17/19 Stop Date: 01/12/20 Status: Ordered topiramate 50 mg oral tablet 1 tablet = 50 mg, By Mouth, 2 times a day, # 60 tablet, 11 Refills, Maintenance, 05/16/21 3:02:00 EDT, Tablet, [facility], 163, cm, 07/23/20 13:59:00 EDT, Height, 80.45, kg, 07/19/2011:52:00 EDT, Dry Weight Start Date: 05/16/21 Stop Date: 05/11/22 Status: Ordered Ventolin HFA 108 mcg/inh inhalation aerosol with adapter 2 puffs, Inhalation, Every 4 hours, PRN for wheezing, # 2 each, 5 Refills, Maintenance, 05/20/21 17:54:00 EDT, Aerosol, [facility], 163, cm, 07/23/20 13:59:00 EDT, Height, 80.45, kg,07/19/20 11:52:00 EDT, Dry Weight Start Date: 05/20/21 Stop Date: 11/11/22 Status: Ordered Problem List Condition Effective Dates Status Health Status Inform ant Anxiety(Confirmed) Active Asthma(Confirmed) Active ADHD (attention deficit hype ractivity disorder)(Confirmed) Active Cocaine abuse(Confirmed) Active Depression(Confirmed) Active GERD - Gastro-esophageal ref lux disease(Confirmed) Active HIV disease(Confirmed) Active Hyperlipidemia(Confirmed) Active Prediabetes(Confirmed) Active Insomnia(Confirmed) Active Migraine(Confirmed) Active Heroin use(Confirmed) Active Opiate addiction(Confirmed) Active *[phone] Care Partn rell [place](Confirmed) Active Polysubstance abuse(Confirmed) Active PTSD (post-traumatic stress disorder)(Confirmed) Active Diagnosis Diagnosis Type Effective Dates Health Status Clini tanika Service Informant Dizziness Discharge Diagnosis 09/13/21 HIV disease Discharge Diagnosis 09/13/21 Social History Social History Type Response Smoking Status Current every day radha guthrie; Type: Cigarettes; Other: 1/2 pk a day; Tobacco use times per day: 8 CIGS A DAY; Started at age: 15; entered on: 05/24/18 Sex
--- OUTSIDE RECORDS SUMMARY | 2023-05-22 15:32 | XMS_ITS | Continuity of Care Document ---
Author Name Unknown Organization [facility] ter Address [address] [place] [id number]- Care Team Providers Care Real Property Evaluator Name Role Phone Joss Augustine MD Primary Care Physician [place] [facility] [place] - 10/29/[address] [address]- [facility] Attending Physician: Joss Augustine MD Admitting Physician: Joss Augustine MD Referring Physician: Joss Augustine MD Allergies, Adverse Reactions, Alerts Substance Reaction Severity Status NKA Active Immunizations Given and Recorded Vaccine Date Status Refusal Reason influenza virus vaccine, inactivated 08/15/19 Give n [...] Pads See Instructions, # 200 each, Refills 5, Tot. Refills 5, Maintenance, use as directed for Type 1 Diabetes Mellitus, 03/29/19 10:32:17 EDT, Compound Start Date: 03/29/19 Stop Date: 09/25/19 Status: Ordered atorvastatin 10 mg oral tablet 1 tablet = 10 mg, By Mouth, Daily, # 30 tablet, 5 Refills, Maintenance, 08/12/19 15:38:53 EDT Start Date: 08/12/19 Status: Ordered Back Brace See Instructions, # 1 each, Maintenance, dx LBP, 11/30/17 9:31:45, Compound Start Date: 11/30/17 Status: Ordered Cane See Instructions, # 1 each, Maintenance, dx left knee pain, 11/30/17 9:31:43, Compound Start Date: 11/30/17 Status: Ordered cholecalciferol 1000 intl units oral tablet 1 tablet = 1,000 International_Units, By Mouth, Daily, # 30 tablet, 11 Refills, Maintenance, 07/12/19 5:58:55 EDT, Tablet Start Date: 07/12/19 Status: Ordered CHUX PADS CHUX PADS, See Instructions, # 100 units, Refills 3, Tot. Refills 3, Maintenance, Dx: Urinary Incontinence (R39.81) Use 1 chux pad at night as diredted, 06/14/18 11:01:42 EDT, Compound Start Date: 06/14/18 Status: Ordered Compression Stockings See Instructions, # 1 pair, Maintenance, surgical, knee length 20-30 mm Hg. dx: leg edema, 06/30/1915:11:27 EDT, Compound Start Date: 06/30/19 Status: Ordered Descovy 200 mg-25 mg oral tablet 1 tablet, By Mouth, Daily, # 30 tablet, 5 Refills, Maintenance, 08/12/19 15:38:54 EDT, Tablet, 1 tablet By Mouth Daily,x30 days Start Date: 08/12/19 Stop Date: 02/08/20 Status: Ordered dolutegravir 50 mg oral tablet 1 tablet = 50 mg, By Mouth, Daily, # 30 tablet, 5 Refills, Maintenance, 08/09/19 12:01:56 EDT, Tablet Start Date: 08/09/19 Stop Date: 02/05/20 Status: Ordered Freestyle Lite Lancets See Instructions, # 200 each, Refills 11, Tot. Refills 11, Maintenance, use as directed for Type 1 Diabetes Mellitus, 03/29/19 10:32:31 EDT, Compound Start Date: 03/29/19 Stop Date: 03/23/20 Status: Ordered Freestyle Lite Test Strips See Instructions, # 200 each, Refills 11, Tot. Refills 11, Maintenance, Dx: Type 2 Diabetes Mellitus, E11.9 Use as directed, TID, 11/23/18 11:47:32 EST, Compound Start Date: 11/23/18 Stop Date: 11/18/19 Status: Ordered gabapentin 100 mg oral capsule See Instructions, 1 capsule By Mouth in AM and 2 caps at bedtime, # 90 capsule, Refills 5, Tot. Refills 5, Maintenance, 05/17/19 17:44:14 EDT, Instructions Replace Required Details, [id number] Start Date: 05/17/19 Status: Ordered HAND BRACE FOR CARPAL TUNNEL (BOTH SIDES) HAND BRACE FOR CARPAL TUNNEL (BOTH SIDES), See Instructions, # 2 units, Refills 0, Tot. Refills 0, Maintenance, DX: BILATERAL CARPAL TUNNEL (G56.03) USE DIRECTED VINICIUS: 99, 05/17/19 18:03:51 EDT, Compound Start Date: 05/17/19 Status: Ordered lidocaine 2% injectable solution 3 mL = 0.06 Gm, Subcutaneous Injection, Once, RN to infiltrate around area of planned abd subcut Sublocade injectn. May interchange 1% lidocaine, w/ or w/o epinephine., # 3 mL, 0 Refills, Soft Stop, 09/07/19 18:22:09 EST Start Date: 09/07/19 Status: Ordered lidocaine 5% topical ointment 1 application, Topically, 3 times a day, To affected area. Wash hands thoroughly after application,# 50 Gm, 1 Refills, Maintenance, 07/01/19 3:21:14 EDT, Ointment, 1 application Topically 3 times a day,Instr:To affected area. Wash hands thoroughly af... Start Date: 07/01/19 Status: Ordered loratadine 10 mg oral tablet 10 mg, 1, tablet, By Mouth, Daily, # 10 tablet, Refills 0, Tot. Refills 0, Maintenance, 10/17/19 17:05:00 EST, Route to Pharmacy Electronically, [facility] [place], 170, cm, 10/17/19 16:41:00 EST, Height, 90, kg, 10/06/19 0:00:00 EST, Dry... Start Date: 10/17/19 Stop Date: 10/27/19 Status: Ordered melatonin 5 mg oral tablet 1 tablet = 5 mg, By Mouth, Daily at bedtime, PRN for insomnia, # 60 tablet, 5 Refills, Maintenance,08/12/19 15:40:19 EDT, Tablet Start Date: 08/12/19 Status: Ordered metFORMIN 500 mg oral tablet 1 tablet = 500 mg, By Mouth, Daily, # 30 tablet, 5 Refills, Maintenance, 09/08/19 16:49:37 EST, Tablet Start Date: 09/08/19 Status: Ordered Narcan 4 mg/0.1 mL nasal spray = 4 mg, Nares, Both, Once, may repeat every 2 to 3 minutes until patient responds, # 2 each, 0 Refills, Soft Stop, 11/01/18 10:03:37 EST, please provide training to patient and partner Start Date: 11/01/18 Status: Ordered Narcan 4 mg/0.1 mL nasal spray = 4 mg, Nares, Both, Once, may repeat every 2 to 3 minutes until patient responds, # 2 each, 0 Refills, Soft Stop, 09/07/19 11:20:56 EST Start Date: 09/07/19 Status: Ordered Nebulizer/Compressor See Instructions, # 1 each, Maintenance, dx asthma, 03/05/16 8:55:22, Compound Start Date: 03/05/16 Status: Ordered omeprazole 40 mg oral enteric coated capsule 1 capsule = 40 mg, By Mouth, 2 times a day, # 60 capsule, 5 Refills, Maintenance, 07/31/19 9:08:44 EDT, EC Capsule, dose increased Start Date: 07/31/19 Stop Date: 01/27/20 Status: Ordered piroxicam 10 mg oral capsule 1 capsule = 10 mg, By Mouth, 2 times a day, with food, # 60 capsule, 2 Refills, Maintenance, 05/17/19 18:02:45 EDT, Capsule, PLEASE STOP DICLOFENAC Start Date: 05/17/19 Status: Ordered sertraline 100 mg oral tablet 1 tablet = 100 mg, By Mouth, Daily, # 90 tablet, 3 Refills, Maintenance, 01/17/19 11:48:28 EDT, Tablet Start Date: 01/17/19 Stop Date: 01/12/20 Status: Ordered Sublocade 300 mg/1.5 mL subcutaneous solution, extended release = 300 mg, Subcutaneous Infusion, Every 28 days, [id number] [place] Patient to continue 300 mg reassess in 2 months diagnosis: F11.2, # 1 Doses, 1 Refills, Maintenance, 09/27/19 17:03:20 EST Start Date: 09/27/19 Status: Ordered Suboxone 8 mg-2 mg sublingual film 2 each, Sublingual, Daily, [id number] [place] dissolve under the tongue fill on/after 10/24/2019 TOOL REPAIR TECHNICIAN verified, # 14 film, 0 Refills, Maintenance, 10/24/19 11:33:00 EST, [facility], 2 each Sublingual Daily,x7 days,Instr:[id number]... Start Date: 10/24/19 Stop Date: 10/31/19 Status: Ordered Suboxone 8 mg-2 mg sublingual film 2 each, Sublingual, Daily, [id number] [place] dissolve under the tongue fill on/after 10/17/2019 TOOL REPAIR TECHNICIAN verified, # 14 each, 0 Refills, Maintenance, 10/17/19 16:55:00 EST, [facility], 2 each Sublingual Daily,x7 days,Instr:[id number]... Start Date: 10/17/19 Stop Date: 10/24/19 Status: Ordered topiramate 50 mg oral tablet 1 tablet = 50 mg, By Mouth, 2 times a day, # 60 tablet, 5 Refills, Maintenance, 05/17/19 17:43:22 EDT, Tablet Start Date: 05/17/19 Stop Date: 11/13/19 Status: Ordered Ventolin HFA 108 mcg/inh inhalation aerosol with adapter 2 puffs, Inhalation, Every 4 hours, PRN for wheezing, # 18 Gm, 3 Refills, Maintenance, 08/12/19 15:39:44 EDT, Aerosol Start Date: 08/12/19 Status: Ordered Walker See Instructions, # 1 each, Maintenance, dx Right knee pain, 02/15/18 11:58:39 EDT, Compound Start Date: 02/15/18 Status: Ordered Problem List Condition Effective Dates Status Health Status Inform ant Anxiety(Confirmed) Active Asthma(Confirmed) Active ADHD (attention deficit hype ractivity disorder)(Confirmed) Active Cocaine abuse(Confirmed) Active Depression(Confirmed) Active GERD - Gastro-esophageal ref lux disease(Confirmed) Active HIV disease(Confirmed) Active Hyperlipidemia(Confirmed) Active Prediabetes(Confirmed) Active Insomnia(Confirmed) Active Migraine(Confirmed) Active Heroin use(Confirmed) Active Opiate addiction(Confirmed) Active *[phone]- [facility] Part ner Shahida Montelongo(Confirmed) Active PTSD (post-traumatic stress disorder)(Confirmed) Active Social History Social History Type Response Smoking Status Current every day radha guthrie; Type: Cigarettes; Other: 1/2 pk a day; Tobacco use times per day: 8 CIGS A DAY; Started at age: 15; entered on: 05/24/18 Sex
--- OUTSIDE RECORDS SUMMARY | 2023-05-22 15:32 | XMS_ITS | Continuity of Care Document ---
Author Name Unknown Organization [facility] Address [address] [place] [address]- Care Team Providers Care Forest Resource Specialist Name Role Phone Joss Augustine MD Primary Care Physician Encounter [facility] [place] Date(s): 01/02/20 - 02/08/20 [facility]/[address] [address]- [facility] Attending Physician: Joss Augustine MD Admitting Physician: Joss Augustine MD Allergies, Adverse Reactions, [...] as directed for Type 1 Diabetes Mellitus, 01/18/20 13:26:00 EDT, Compound, 163, cm, 12/30/19 8:46:00 EST, Height, 81.1, kg, 12/23/19 11:40:00 EST, Dry Weight Start Date: 01/18/20 Stop Date: 07/16/20 Status: Ordered atorvastatin 10 mg oral tablet 1 tablet = 10 mg, By Mouth, Daily, # 30 tablet, 5 Refills, Maintenance, 08/12/19 15:38:53 EDT Start Date: 08/12/19 Status: Ordered cholecalciferol 1000 intl units oral tablet 1 tablet = 1,000 International_Units, By Mouth, Daily, # 30 tablet, 11 Refills, Maintenance, 07/12/19 5:58:55 EDT, Tablet Start Date: 07/12/19 Status: Ordered Descovy 200 mg-25 mg oral tablet 1 tablet, By Mouth, Daily, # 30 tablet, 5 Refills, Maintenance, 11/28/19 15:38:00 EST, Tablet, [facility], 1 tablet By Mouth Daily,x30 days, 170, cm, 11/07/19 9:01:00 EST, Height, 90, kg, 10/06/19 0:00:00 EST, Dry Weight Start Date: 11/28/19 Stop Date: 05/26/20 Status: Ordered dolutegravir 50 mg oral tablet 1 tablet = 50 mg, By Mouth, Daily, # 30 tablet, 5 Refills, Maintenance, 11/28/19 12:15:00 EST, Tablet, [facility], 170, cm, 11/07/19 9:01:00 EST, Height, 90, kg, 10/06/19 0:00:00 EST, Dry Weight Start Date: 11/28/19 Stop Date: 05/26/20 Status: Ordered Freestyle Lite Lancets See Instructions, # 200 each, Refills 11, Tot. Refills 11, Maintenance, use as directed for Type 1 Diabetes Mellitus, 01/18/20 13:26:00 EDT, Compound, 163, cm, 12/30/19 8:46:00 EST, Height, 81.1, kg,12/23/19 11:40:00 EST, Dry Weight Start Date: 01/18/20 Stop Date: 01/12/21 Status: Ordered Freestyle Lite Test Strips See Instructions, # 200 each, Refills 11, Tot. Refills 11, Maintenance, Dx: Type 2 Diabetes Mellitus, E11.9 Use as directed, TID, 01/18/20 13:26:00 EDT, Compound, 163, cm, 12/30/19 8:46:00 EST, Height, 81.1, kg, 12/23/19 11:40:00 EST, Dry Weight Start Date: 01/18/20 Stop Date: 01/12/21 Status: Ordered gabapentin 100 mg oral capsule 100 mg, 1, capsule, By Mouth, 3 times a day, # 90 capsule, Refills 0, Maintenance, 12/23/19 11:55:00 EST Start Date: 12/23/19 Status: Ordered melatonin 5 mg oral tablet 1 tablet = 5 mg, By Mouth, Daily at bedtime, PRN for insomnia, # 60 tablet, 5 Refills, Maintenance,08/12/19 15:40:19 EDT, Tablet Start Date: 08/12/19 Status: Ordered metFORMIN 500 mg oral tablet 1 tablet = 500 mg, By Mouth, Daily, # 30 tablet, 5 Refills, Maintenance, 09/08/19 16:49:37 EST, Tablet Start Date: 09/08/19 Status: Ordered Methadone = 20 mg, By [...] Date: 07/31/19 Stop Date: 01/27/20 Status: Ordered sertraline 100 mg oral tablet 1 tablet = 100 mg, By Mouth, Daily, # 90 tablet, 3 Refills, Maintenance, 01/17/19 11:48:28 EDT, Tablet Start Date: 01/17/19 Stop Date: 01/12/20 Status: Ordered topiramate 50 mg oral tablet 1 tablet = 50 mg, By Mouth, 2 times a day, # 60 tablet, 5 Refills, Maintenance, 10/31/19 17:43:00 EST, Tablet, [facility], 170, cm, 10/17/19 16:41:00 EST, Height, 90, kg, 10/06/19 0:00:00 EST, Dry Weight Start Date: 10/31/19 Stop Date: 04/28/20 Status: Ordered Ventolin HFA 108 mcg/inh inhalation aerosol with adapter 2 puffs, Inhalation, Every 4 hours, PRN for wheezing, # 18 Gm, 5 Refills, Maintenance, 11/23/19 19:51:00 EST, Aerosol, [facility], 170, cm, 11/07/19 9:01:00 EST, Height, 90, kg, 10/06/19 0:00:00 EST, Dry Weight Start Date: 11/23/19 Status: Ordered Problem List Condition Effective Dates Status Health Status Inform ant Anxiety(Confirmed) Active Asthma(Confirmed) Active ADHD (attention deficit hype ractivity disorder)(Confirmed) Active Cocaine abuse(Confirmed) Active Depression(Confirmed) Active GERD - Gastro-esophageal ref lux disease(Confirmed) Active HIV disease(Confirmed) Active Hyperlipidemia(Confirmed) Active Prediabetes(Confirmed) Active Insomnia(Confirmed) Active Migraine(Confirmed) Active Heroin use(Confirmed) Active Opiate addiction(Confirmed) Active *[phone] Care Part ner Shahida Montelongo(Confirmed) Active Polysubstance abuse(Confirmed) Active PTSD (post-traumatic stress disorder)(Confirmed) Active Social History Social History Type Response Smoking Status 10 or more cigarette s (1/2 pack or more)/day in last 30 days entered on: 11/07/19 Sex
--- OUTSIDE RECORDS SUMMARY | 2023-05-22 15:32 | XMS_ITS | Continuity of Care Document ---
Author Name Unknown Organization [facility] Address Unknown Care Team Providers Care Electrical Controls Engineer Name Role Phone Joss Augustine MD Primary Care Physician Encounter [facility] [place] Date(s): 09/04/21 - 10/04/21 [facility] Allergies, Adverse Reactions, Alerts Substance Reaction Severity [...] tablet, 11 Refills, Maintenance, 02/25/21 10:33:00 EDT, [facility], 163, cm, 07/23/20 13:59:00 EDT, Height, 80.45, kg, 07/19/20 11:52:00 EDT, Dry Weight Start Date: 02/25/21 Status: Ordered cholecalciferol 1000 intl units oral tablet 1 tablet = 1,000 International_Units, By Mouth, Daily, # 30 tablet, 11 Refills, Maintenance, 08/29/21 10:17:00 EDT, Tablet, [facility], 164, cm, 05/23/21 15:48:00 EDT, Height, 73, kg, 05/23/21 15:48:00 EDT, Dry Weight Start Date: 08/29/21 Status: Ordered Descovy 200 mg-25 mg oral tablet 1 tablet, By Mouth, Daily, # 30 tablet, 2 Refills, Maintenance, 09/24/21 6:24:00 EST, Tablet, [facility], 1 tablet By Mouth Daily,x30 days, 164, cm, 05/23/21 15:48:00 EDT, Height, 73, kg, 05/23/21 15:48:00 EDT, Dry Weight Start Date: 09/24/21 Stop Date: 12/23/21 Status: Ordered dolutegravir 50 mg oral tablet 1 tablet = 50 mg, By Mouth, Daily, # 30 tablet, 2 Refills, Maintenance, 09/24/21 6:24:00 EST, Tablet, [facility], 164, cm, 05/23/21 15:48:00 EDT, [...] 07/16/21 7:01:00 EDT, Route to Pharmacy Electronically, [facility], 164, cm, 05/23/21 15:48:00 EDT, Height, 73, kg, 05/23/21 15:48:00 E... Start Date: 07/16/21 Status: Ordered melatonin 5 mg oral tablet 1 tablet = 5 mg, By Mouth, Daily at bedtime, PRN for insomnia, # 60 tablet, 11 Refills, Maintenance, 05/16/21 3:02:00 EDT, Tablet, [facility], 163, cm, 07/23/20 13:59:00 EDT, Height,80.45, kg, 07/19/20 11:52:00 EDT, Dry Weight Start Date: 05/16/21 Status: Ordered metFORMIN 500 mg oral tablet 1 tablet = 500 mg, By Mouth, Daily, # 30 tablet, 11 Refills, Maintenance, 03/26/21 14:38:00 EDT, Tablet, [facility], 163, cm, 07/23/20 13:59:00 EDT, [...] Refills, Maintenance, 02/25/21 10:36:00 EDT, EC Capsule, [facility], dose increased, 163, cm, 07/23/20 13:59:00 [...] 11 Refills, Maintenance, 05/16/21 3:02:00 EDT, Tablet, [facility], 163, cm, 07/23/20 13:59:00 EDT, Height, 80.45, kg, 07/19/2011:52:00 EDT, Dry Weight Start Date: 05/16/21 Stop Date: 05/11/22 Status: Ordered Ventolin HFA 108 mcg/inh inhalation aerosol with adapter 2 puffs, Inhalation, Every 4 hours, PRN for wheezing, # 2 each, 5 Refills, Maintenance, 05/20/21 17:54:00 EDT, Aerosol, [facility], 163, cm, 07/23/20 13:59:00 EDT, [...] Active Heroin use(Confirmed) Active Opiate addiction(Confirmed) Active *[phone] Care Partn rell Eagle(Confirmed) Active Polysubstance abuse(Confirmed) Active PTSD (post-traumatic stress disorder)(Confirmed) Active Social History Social History Type Response Smoking Status Current every day radha guthrie; Type: Cigarettes; Other: 1/2 pk a day; Tobacco use times per day: 8 CIGS A DAY; Started at age: 15; entered on: 05/24/18 Sex
--- OUTSIDE RECORDS SUMMARY | 2023-05-22 15:32 | XMS_ITS | Continuity of Care Document ---
Author Name Unknown Organization [facility] Address [address] [place] [address]- Care Team Providers Care Physiatrist Name Role Phone Fawn REAL, Joss Martin Primary Care Physician [place] [facility] [place]23 - 02/07/23 [facility] [address]- [place] Allergies, Adverse Reactions, Alerts No Known Allergies Immunizations Given and Recorded Vaccine Date Status Refusal Reason [id number] 12y+ bivalent booster vax 09/29/22 Given influenza [...] 2 Refills, Maintenance, 01/01/23 9:12:00 EST, Solution, [facility], 164, cm, 01/01/23 8:52:00 EST, Height, [...] tablet, 11 Refills, Maintenance, 03/19/22 10:39:00 EDT, [facility], 164, cm, 05/23/21 15:48:00 EDT, Height, 73, kg, 05/23/21 15:48:00 EDT, DryWeight Start Date: 03/19/22 Status: Ordered cholecalciferol 1000 intl units oral tablet 1 tablet = 1,000 International_Units, By Mouth, Daily, # 30 tablet, 4 Refills, Maintenance, 09/04/22 16:07:00 EST, Tablet, [facility], 164, cm, 05/23/21 15:48:00 EDT, Height, 73, kg,05/23/21 15:48:00 EDT, Dry Weight Start Date: 09/04/22 Status: Ordered Descovy 200 mg-25 mg oral tablet 1 tablet, By Mouth, Daily, # 30 tablet, 3 Refills, Maintenance, 11/18/22 18:13:00 EST, Tablet, [facility], 1 tablet By Mouth Daily,x30 days, 164, cm, 11/18/22 16:28:00 EST, Height, 73, kg, 05/23/21 15:48:00 EDT, Dry Weight Start Date: 11/18/22 Stop Date: 03/18/23 Status: Ordered dolutegravir 50 mg oral tablet 1 tablet = 50 mg, By Mouth, Daily, # 30 tablet, 3 Refills, Maintenance, 11/18/22 18:13:00 EST, Tablet, [facility], 164, cm, 11/18/22 16:28:00 EST, Height, 73, kg, 05/23/21 15:48:00 EDT, Dry Weight Start Date: 11/18/22 Stop Date: 03/18/23 Status: Ordered Flonase 50 mcg/inh nasal spray 1 sprays, Nares, Both, 2 times a day, # 16 Gm, 0 Refills, Maintenance, 01/01/23 9:25:00 EST, [place],[facility], Partial fill upon patient request if the prescription is for a schedule II opioid drug., 1 sprays Nares, Both 2 times a da... Start Date: 01/01/23 Status: Ordered Freestyle Lite Lancets See Instructions, # 100 each, Refills 11, Tot. Refills 11, Maintenance, Dx: Type 2 Diabetes Mellitus, E11.9 Use as directed, TID, 02/15/22 12:25:00 EDT, Compound, 164, cm, 05/23/21 15:48:00 EDT, Height, 73, kg, 05/23/21 15:48:00 EDT, Dry Weight Start Date: 02/15/22 Stop Date: 02/10/23 Status: Ordered Freestyle Lite Monitor See Instructions, [...] Diabetes Mellitus, E11.9 Use as directed, TID, 02/15/22 12:25:00 EDT, Compound, 164, cm, 05/23/21 15:48:00 EDT, Height, 73, kg, 05/23/21 15:48:00 EDT, Dry Weight Start Date: 02/15/22 Stop Date: 02/10/23 Status: Ordered melatonin 5 mg oral tablet 1 tablet = 5 mg, By Mouth, Daily at bedtime, PRN for insomnia, # 60 tablet, 4 Refills, Maintenance,07/08/22 13:18:00 EDT, Tablet, [facility], 164, cm, 05/23/21 15:48:00 EDT, Height,73, kg, 05/23/21 15:48:00 EDT, Dry Weight Start Date: 07/08/22 Status: Ordered metFORMIN 500 mg oral tablet 1 tablet = 500 mg, By Mouth, Daily, # 30 tablet, 4 Refills, Maintenance, 12/18/22 16:42:00 EST, Tablet, [facility], 164, cm, 11/18/22 16:28:00 EST, [...] Gm, 3 Refills, Maintenance, 01/19/23 14:48:00 EDT, [facility], For constipation: one capful by mouth, every day, tit... Start Date: 01/19/23 Status: Ordered mirtazapine 15 mg oral tablet 1 tablet = 15 mg, By Mouth, Daily at bedtime, # 90 tablet, 1 Refills, Maintenance, 01/16/23 11:22:00 EDT, Tablet, [facility], Partial fill upon patient request if the prescription isfor a schedule II opioid drug., 164, cm, 01/15/23 1... Start Date: 01/16/23 Stop Date: 02/15/23 Status: Ordered nicotine 14 mg/24 hr transdermal film, extended release 1 patch, Topically, Daily, for 6 week(s), # 42 patch, 0 Refills, Acute 02/27/23 12:49:00 EDT, 01/16/23 12:49:00 EDT, Patch, [facility], Partial fill upon patient request if the prescription is for a schedule II opioid drug., 1 patch T... Start Date: 01/16/23 Stop Date: 02/27/23 Status: Ordered nicotine 4 mg oral transmucosal lozenge 1 lozenge = 4 mg, By Mouth, Every 4 hours, for 6 week(s), # 252 lozenge, 0 Refills, Acute 02/27/23 12:48:00 EDT, 01/16/23 12:48:00 EDT, [facility], Partial fill upon patient request if the prescription is for a schedule II opioid drug... Start Date: 01/16/23 Stop Date: 02/27/23 Status: Ordered omeprazole 40 mg oral enteric coated capsule 1 capsule = 40 mg, By Mouth, 2 times a day, # 60 capsule, 11 Refills, Maintenance, 03/19/22 10:38:00 EDT, EC Capsule, [facility], dose increased, 164, cm, 05/23/21 [...] capsule, 1 Refills, Maintenance, 01/16/23 11:21:00 EDT, [facility], Partial fill upon patient request if the prescription is for a schedule II opioid drug., 164, cm, 01/15/23 10:48:00... Start Date: 01/16/23 Stop Date: 07/15/23 Status: Ordered Preparation H 14%-74.9%-0.25% rectal ointment 1 application, Rectally, 2 times a day, PRN as needed for itching, for 10 days, # 57 Gm, 3 Refills,Acute 02/28/23 15:13:00 EDT, 01/19/23 15:13:00 EDT, Ointment, [facility], 1 application Rectally 2 times a day,x10 days,PRN:as needed... Start Date: 01/19/23 Stop Date: 02/28/23 Status: Ordered Salonpas (camphor) topical film 1 patch, Topically, Daily, for 30 days, do not leave patch on for more than 8 hours at a time, # 30patch, 0 Refills, Acute 02/14/23 11:14:00 EDT, 01/15/23 11:14:00 EDT, Film, [facility], Partial fill upon patient request if the presc... Start Date: 01/15/23 Stop Date: 02/14/23 Status: Ordered Senna 8.6 mg oral tablet 17.2 mg, 2, tablet, By Mouth, Daily at bedtime, for 30 days, # 60 tablet, Refills 4, Tot. Refills 4, Acute, 06/14/23 11:16:00 EDT, 01/15/23 11:16:00 EDT, Route to Pharmacy Electronically, [facility], Partial fill upon patient request... Start Date: 01/15/23 Stop Date: 06/14/23 Status: Ordered sertraline 50 mg oral tablet 1 tablet = 50 mg, By Mouth, Daily, # 90 tablet, 1 Refills, Maintenance, 01/01/23 17:40:00 EST, Tablet, [facility], Partial fill upon patient request if the prescription is for a schedule II opioid drug., 164, cm, 01/01/23 8:52:00 EST,... Start Date: 01/01/23 Status: Ordered topiramate 50 mg oral tablet 1 tablet = 50 mg, By Mouth, 2 times a day, # 60 tablet, 7 Refills, Maintenance, 01/15/23 11:16:00 EDT, Tablet, [facility], 164, cm, 01/15/23 10:48:00 EDT, Height, 68.18, kg, 01/15/2310:48:00 EDT, Dry Weight Start Date: 01/15/23 Stop Date: 09/12/23 Status: Ordered Ventolin HFA 108 mcg/inh inhalation aerosol with adapter 2 puffs, Inhalation, Every 4 hours, PRN for wheezing, # 2 each, 5 Refills, Maintenance, 01/15/23 11:10:00 EDT, Aerosol, [facility], 164, cm, 01/15/23 10:48:00 EDT, Height, [...] use Confirmed Active Opiate addiction Confirmed Active *[phone] 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 Confirmed Active Breast cancer screening Confirmed Active Polysubstance abuse Confirmed Active PTSD (post-traumatic stress disorder) Confirmed Active Social History Social History Type Response Smoking Status 10 or more cigarette s (1/2 pack or more)/day in last 30 days; Other: pack a day; entered on: 11/18/22 Sex Patient Care team information Care Team Personnel Name: Too MARINO, Raina Donahue Position: [facility] Associate Professional Member Role: Primary Care Nurse Address: Address: [address] [place] [address] Name: Joss Augustine MD Position: [facility] Primary Care Physician Member Role: PCP Address: Address: [address] [place] [address] Name: Radha Murillo RN Position: [facility] [place] Member Role: Primary Care Nurse Care Team Related Persons Name: SARWAT PEARL Address: [address] [place] [address] Name: CRYSTAL PEARL Address: [address] [place] [address] Name: DARRICK RENEE
--- OUTSIDE RECORDS SUMMARY | 2023-05-22 15:32 | XMS_ITS | Continuity of Care Document ---
Author Name Unknown Organization [facility] Address [address] [place] [id number]- Care Team Providers Care Gas Engine Operator Generators Name Role Phone Joss Augustine MD Primary Care Physician [place] [facility] [place]21 [facility] [place] [address]- Attending Physician: Joss Augustine MD Admitting Physician: [...] tablet, 11 Refills, Maintenance, 02/25/21 10:33:00 EDT, [facility], 163, cm, 07/23/20 13:59:00 EDT, Height, 80.45, kg, 07/19/20 11:52:00 EDT, Dry Weight Start Date: 02/25/21 Status: Ordered cholecalciferol 1000 intl units oral tablet 1 tablet = 1,000 International_Units, By Mouth, Daily, # 30 tablet, 11 Refills, Maintenance, 07/23/20 17:03:00 EDT, Tablet, [place] [id number] ([facility]), 163, cm, 07/23/20 13:59:00 EDT, Height, 80.45, kg, 07/19/20 11:52:00 EDT, Dry Weight Start Date: 07/23/20 Status: Ordered Descovy 200 mg-25 mg oral tablet 1 tablet, By Mouth, Daily, # 30 tablet, 5 Refills, Maintenance, 02/25/21 10:37:00 EDT, Tablet, [facility], 1 tablet By Mouth Daily,x30 days, 163, cm, 07/23/20 13:59:00 EDT, Height, 80.45, kg, 07/19/20 11:52:00 EDT, Dry Weight Start Date: 02/25/21 Stop Date: 08/24/21 Status: Ordered dolutegravir 50 mg oral tablet 1 tablet = 50 mg, By Mouth, Daily, # 30 tablet, 5 Refills, Maintenance, 02/25/21 10:37:00 EDT, Tablet, [facility], 163, cm, 07/23/20 13:59:00 EDT, Height, 80.45, kg, 07/19/20 11:52:00 EDT, Dry Weight Start Date: 02/25/21 Stop Date: 08/24/21 Status: Ordered Freestyle Lite Lancets See Instructions, [...] times a day, # 90 capsule, Refills 4, Tot. Refills 4, Maintenance, 01/28/21 17:12:00 EDT, Route to Pharmacy Electronically, [facility], 163, cm, 07/23/20 13:59:00 EDT, Height, 80.45, kg, 07/19/20 11:52:... Start Date: 01/28/21 Status: Ordered melatonin 5 mg oral tablet 1 tablet = 5 mg, By Mouth, Daily at bedtime, PRN for insomnia, # 60 tablet, 11 Refills, Maintenance, 05/14/20 14:54:00 EDT, Tablet, [facility], 163, cm, 12/30/19 8:46:00 EST, Height,81.1, kg, 12/23/19 11:40:00 EST, Dry Weight Start Date: 05/14/20 Status: Ordered metFORMIN 500 mg oral tablet 1 tablet = 500 mg, By Mouth, Daily, # 30 tablet, 11 Refills, Maintenance, 03/26/21 14:38:00 EDT, Tablet, [facility], 163, cm, 07/23/20 13:59:00 EDT, Height, 80.45, kg, 07/19/20 11:52:00 EDT, Dry Weight Start Date: 03/26/21 Status: Ordered Methadone = 20 mg, By Mouth, Daily, 0 Refills, Maintenance, 12/23/19 16:27:00 EST, Partial fill upon patient request Start Date: 12/23/19 Status: Ordered MiraLax oral powder for reconstitution = 17 Gm, By Mouth, Daily, dissolve in water before taking, # 527 Gm, 0 Refills, Acute 09/05/21 15:14:00 EST, 12/04/20 15:13:00 EST, REC Powder, [facility], Partial fill upon patient request if the prescription is for a schedule II opi... Start Date: 12/04/20 Stop Date: 09/05/21 Status: Ordered omeprazole 40 mg oral enteric coated capsule 1 capsule = 40 mg, By Mouth, 2 times a day, # 60 capsule, 11 Refills, Maintenance, 02/25/21 10:36:00 EDT, EC Capsule, [facility], dose increased, 163, cm, 07/23/20 13:59:00 EDT, Height, 80.45, kg, 07/19/20 11:52:00 EDT, Dry Weight Start Date: 02/25/21 Stop Date: 02/20/22 Status: Ordered sertraline 100 mg oral tablet 1 tablet = 100 mg, By Mouth, Daily, # 90 tablet, 3 Refills, Maintenance, 01/17/19 11:48:28 EDT, Tablet Start Date: 01/17/19 Stop Date: 01/12/20 Status: Ordered topiramate 50 mg oral tablet 1 tablet = 50 mg, By Mouth, 2 times a day, # 60 tablet, 11 Refills, Maintenance, 05/14/20 14:54:00 EDT, Tablet, [facility], 163, cm, 12/30/19 8:46:00 EST, Height, 81.1, kg, 12/23/19 11:40:00 EST, Dry Weight Start Date: 05/14/20 Stop Date: 05/09/21 Status: Ordered Ventolin HFA 108 mcg/inh inhalation aerosol with adapter 2 puffs, Inhalation, Every 4 hours, PRN for wheezing, # 3 each, 3 Refills, Maintenance, 12/26/20 12:47:00 EST, Aerosol, [facility], 163, cm, 07/23/20 13:59:00 EDT, Height, 80.45, kg,07/19/20 11:52:00 EDT, Dry Weight Start Date: 12/26/20 Stop Date: 12/21/21 Status: Ordered Problem List Condition Effective Dates Status Health Status Inform ant Anxiety(Confirmed) Active Asthma(Confirmed) Active ADHD (attention deficit hype ractivity disorder)(Confirmed) Active Cocaine abuse(Confirmed) Active Depression(Confirmed) Active GERD - Gastro-esophageal ref lux disease(Confirmed) Active HIV disease(Confirmed) Active Hyperlipidemia(Confirmed) Active Prediabetes(Confirmed) Active Insomnia(Confirmed) Active Migraine(Confirmed) Active Heroin use(Confirmed) Active Opiate addiction(Confirmed) Active *[id number] Care Partn rell [place](Confirmed) Active Polysubstance abuse(Confirmed) Active PTSD (post-traumatic stress disorder)(Confirmed) Active Social History Social History Type Response Smoking Status 10 or more cigarette s (1/2 pack or more)/day in last 30 days; Tobacco user in household: Yes entered on: 07/19/20 Sex
--- OUTSIDE RECORDS SUMMARY | 2023-05-22 15:32 | XMS_ITS | Continuity of Care Document ---
Author Name Unknown Organization [facility] Address [address], [address], [address] [place] [id number]- Care Team Providers Care Material Expeditor Name Role Phone Fawn REAL, Joss Martin Primary Care Physician [place] [facility] [place] 08/08/20 [facility] [address], [address], [address] [place] [address]- [facility] Attending Physician: Adama [id number] Admitting Physician: AdmMike tracy Referring Physician: Admtr, Ar8 Allergies, Adverse Reactions, Alerts Substance Reaction Severity [...] Daily, # 30 tablet, 11 Refills, Maintenance, 02/13/20 12:00:00 EDT, [facility], 163, cm, 12/30/19 8:46:00 EST, Height, 81.1, kg, 12/23/19 11:40:00 EST, Dry Weight Start Date: 02/13/20 Status: Ordered cholecalciferol 1000 intl units oral tablet 1 tablet = 1,000 International_Units, By Mouth, Daily, # 30 tablet, 11 Refills, Maintenance, 07/23/20 17:03:00 EDT, Tablet, [place] [id number] ([facility]), 163, cm, 07/23/20 13:59:00 EDT, Height, 80.45, kg, 07/19/20 11:52:00 EDT, Dry Weight Start Date: 07/23/20 Status: Ordered Descovy 200 mg-25 mg oral tablet 1 tablet, By Mouth, Daily, # 30 tablet, 5 Refills, Maintenance, 02/13/20 12:00:00 EDT, Tablet, [facility], 1 tablet By Mouth Daily,x30 days, 163, cm, 12/30/19 8:46:00 EST, Height, 81.1, kg, 12/23/19 11:40:00 EST, Dry Weight Start Date: 02/13/20 Stop Date: 08/11/20 Status: Ordered dolutegravir 50 mg oral tablet 1 tablet = 50 mg, By Mouth, Daily, # 30 tablet, 5 Refills, Maintenance, 06/19/20 11:52:00 EDT, Tablet, [facility], 163, cm, 12/30/19 8:46:00 EST, Height, 81.1, kg, 12/23/19 11:40:00 EST, Dry Weight Start Date: 06/19/20 Stop Date: 12/16/20 Status: Ordered Freestyle Lite Lancets See Instructions, [...] capsule, Refills 4, Tot. Refills 4, Maintenance, 07/23/20 17:04:00 EDT, Route to Pharmacy Electronically, [id number] 163, cm, 07/23/20 13:59:00 EDT, Height, 80.45, kg, 07/19/20 1... Start Date: 07/23/20 Status: Ordered melatonin 5 mg oral tablet 1 tablet = 5 mg, By Mouth, Daily at bedtime, PRN for insomnia, # 60 tablet, 11 Refills, Maintenance, 05/14/20 14:54:00 EDT, Tablet, [facility], 163, cm, 12/30/19 8:46:00 EST, Height,81.1, kg, 12/23/19 11:40:00 EST, Dry Weight Start Date: 05/14/20 Status: Ordered metFORMIN 500 mg oral tablet 1 tablet = 500 mg, By Mouth, Daily, # 30 tablet, 11 Refills, Maintenance, 03/13/20 17:35:00 EDT, Tablet, [facility], 163, cm, 12/30/19 8:46:00 EST, Height, 81.1, kg, 12/23/19 11:40:00 EST, Dry Weight Start Date: 03/13/20 Status: Ordered Methadone = 20 mg, By Mouth, Daily, 0 Refills, Maintenance, 12/23/19 16:27:00 EST, Partial fill upon patient request Start Date: 12/23/19 Status: Ordered omeprazole 40 mg oral enteric coated capsule 1 capsule = 40 mg, By Mouth, 2 times a day, # 60 capsule, 11 Refills, Maintenance, 02/13/20 12:00:00 EDT, EC Capsule, [facility], dose increased, 163, cm, 12/30/19 8:46:00 EST, Height, 81.1, kg, 12/23/19 11:40:00 EST, Dry Weight Start Date: 02/13/20 Stop Date: 02/07/21 Status: Ordered sertraline 100 mg oral tablet 1 tablet = 100 mg, By Mouth, Daily, # 90 tablet, 3 Refills, Maintenance, 01/17/19 11:48:28 EDT, Tablet Start Date: 01/17/19 Stop Date: 01/12/20 Status: Ordered topiramate 50 mg oral tablet 1 tablet = 50 mg, By Mouth, 2 times a day, # 60 tablet, 11 Refills, Maintenance, 05/14/20 14:54:00 EDT, Tablet, [facility], 163, cm, 12/30/19 8:46:00 EST, Height, 81.1, kg, 12/23/19 11:40:00 EST, Dry Weight Start Date: 05/14/20 Stop Date: 05/09/21 Status: Ordered Ventolin HFA 108 mcg/inh inhalation aerosol with adapter 2 puffs, Inhalation, Every 4 hours, PRN for wheezing, # 3 each, 3 Refills, Maintenance, 04/21/20 8:52:00 EDT, Aerosol, [facility], 163, cm, 12/30/19 8:46:00 EST, Height, 81.1, kg, 12/23/19 11:40:00 EST, Dry Weight Start Date: 04/21/20 Stop Date: 04/16/21 Status: Ordered Problem List Condition Effective Dates Status Health Status Inform ant Anxiety(Confirmed) Active Asthma(Confirmed) Active ADHD (attention deficit hype ractivity disorder)(Confirmed) Active Cocaine abuse(Confirmed) Active Depression(Confirmed) Active GERD - Gastro-esophageal ref lux disease(Confirmed) Active HIV disease(Confirmed) Active Hyperlipidemia(Confirmed) Active Prediabetes(Confirmed) Active Insomnia(Confirmed) Active Migraine(Confirmed) Active Heroin use(Confirmed) Active Opiate addiction(Confirmed) Active *[id number]- [facility] Part ner Shahidaluz marina Montelongo(Confirmed) Active Polysubstance abuse(Confirmed) Active PTSD (post-traumatic stress disorder)(Confirmed) Active Social History Social History Type Response Smoking Status 10 or more cigarette s (1/2 pack or more)/day in last 30 days; Tobacco user in household: Yes entered on: 07/19/20 Sex
--- OUTSIDE RECORDS SUMMARY | 2023-05-22 15:32 | XMS_ITS | Continuity of Care Document ---
Author Name Unknown Organization [facility] Address [address] [place] [address]- Care Team Providers Care Shadowgraph Scale Operator Name Role Phone Joss Augustine MD Primary Care Physician Encounter [facility] Date(s): 12/23/19 - 12/27/[address] [address] [phone] Discharge Disposition: A-D/C Home Attending Physician: Christian Bah DO Admitting Physician: Herman Ojeda MD Referring Physician: Not on Staff, Referring MD Allergies, Adverse Reactions, Alerts Substance Reaction [...] 15:46:55, Solution Start Date: 09/22/17 Status: Ordered Ativan 1 mg oral tablet 1 tablet = 1 mg, By Mouth, Daily, PRN Seizure Activity, for 7 days, # 7 tablet, 0 Refills, Acute 01/02/20 14:43:00 EDT, 12/26/19 14:43:00 EST, Tablet, [facility], 163, cm, 12/26/19 14:02:00 EST, Height, 81.1, kg, 12/23/19 11:40:00 EST... Start Date: 12/26/19 Stop Date: 01/02/20 Status: Ordered atorvastatin 10 mg oral tablet [...] 5 Refills, Maintenance, 11/28/19 15:38:00 EST, Tablet, [facility], 1 tablet By Mouth Daily,x30 days, 170, cm, 11/07/19 9:01:00 EST, Height, 90, kg, 10/06/19 0:00:00 EST, Dry Weight Start Date: 11/28/19 Stop Date: 05/26/20 Status: Ordered dolutegravir 50 mg oral tablet 1 tablet = 50 mg, By Mouth, Daily, # 30 tablet, 5 Refills, Maintenance, 11/28/19 12:15:00 EST, Tablet, [facility], 170, cm, 11/07/19 9:01:00 EST, Height, 90, kg, 10/06/19 0:00:00 EST, Dry Weight Start Date: 11/28/19 Stop Date: 05/26/20 Status: Ordered gabapentin 100 mg oral capsule [...] 5 Refills, Maintenance, 10/31/19 17:43:00 EST, Tablet, [facility], 170, cm, 10/17/19 16:41:00 EST, Height, 90, kg, 10/06/19 0:00:00 EST, Dry Weight Start Date: 10/31/19 Stop Date: 04/28/20 Status: Ordered Ventolin HFA 108 mcg/inh inhalation aerosol with adapter 2 puffs, Inhalation, Every 4 hours, PRN for wheezing, # 18 Gm, 5 Refills, Maintenance, 11/23/19 19:51:00 EST, Aerosol, [facility], 170, cm, 11/07/19 9:01:00 EST, Height, 90, [...] Active Heroin use(Confirmed) Active Opiate addiction(Confirmed) Active *[id number]- [facility] Part ner Shahida Montelongo(Confirmed) Active Polysubstance abuse(Confirmed) Active PTSD (post-traumatic stress disorder)(Confirmed) Active Results Radiology Reports * Exam Date Time Procedure Performing Provider Status 12/24/19 2:02 PM Lumbar Spine 2 or 3 Views Pao, B eth A; Auth (Verified) Notes: (Lumbar Spine 2 or 3 Views) Reason For Exam: Pain RESULT: Lumbar Spine 2 or 3 Views Lumbar Spine 2 or 3 Views Reason: Pain; Clinical Question(s): Fracture Dislocation; Hx of Present Illness: pt reports feelingdizzy spinning and was lowered to floor by staff at recovery center. Witnessed twitching lasting 3 min. C O headache and dizziness upon arrival. Was due to for discharge to respite today. COMPARISON: 05/21/2019. FINDINGS: There is no evidence of acute fracture or subluxation. There are discogenic degenerative changes with spurring. Normal alignment. No spondylolysis or spondylolisthesis. Normal soft tissues. IMPRESSION: Discogenic degenerative changes with spurring without evidence of acute fracture or subluxation. WSN: [id number] Dictated By: Sandra Wolfe MD Dictated Date/Time: 12/24/19 3:15 pm Reviewed By: Sandra Wolfe MD Signed By: Sandra Wolfe MD Signed Date/Time: 12/24/19 3:15 pm Transcribed By: [email or web address] Transcribed Date/Time: 12/24/19 3:14 pm Vital Signs Most recent to oldest [Reference Range]: 1 2 3 Height 163 cm (12/27/19 10:47 AM) 163 cm (12/27/19 8:04 AM) 163 cm (12/27/19 12:16 AM) Weight 81.1 kg (12/23/19 11:40 AM) 66 kg (12/23/19 9:32 AM) 66 kg (12/23/19 9:09 AM) Oxygen Saturation [94-100 %] 97 % (12/27/19 10:47 AM) 98 % (12/27/19 8:04 AM) 97 % (12/27/19 12:16 AM) Pulse Rate [55-90 bpm] 50 bpm *L* (12/27/19 10:47 AM) 53 bpm *L* (12/27/19 8:04 AM) 51 bpm *L* (12/27/19 12:16 AM) Body Mass Index [18.5-24.99] 30.52 *>HHI* (12/23/19 11:40 AM) 24.84 (12/23/19 9:32 AM) 24.84 (12/23/19 9:09 AM) Blood Pressure [90-138/55-84 mm Hg] 101/65mm Hg (12/27/19 10:47 AM) 102/61mm Hg (12/27/19 8:04 AM) 95/50mm Hg (12/27/19 12:16 AM) Respiratory Rate [16-30 br/min] 18 br/min (12/27/19 3:48 PM) 16 br/min (12/27/19 2:48 PM) 16 br/min (12/27/19 10:47 AM) Temperature [96.8-100.4 DegF] 97.9 DegF (12/27/19 10:47 AM) 97.8 DegF (12/27/19 8:04 AM) 97.8 DegF (12/27/19 12:16 AM) Liters per Minute 0 L/min (12/26/19 4:09 AM) 0 L/min (12/26/19 12:16 AM) 2 L/min (12/24/19 4:28 PM) Mode of Delivery (Oxygen) Room air (12/27/19 10:47 AM) Room air (12/27/19 8:04 AM) Room air (12/27/19 12:16 AM) Blood pressure sites Arm, right (12/27/19 10:47 AM) Arm, right (12/27/19 8:04 AM) Arm, left (12/27/19 12:16 AM) Temperature Route Oral (12/27/19 10:47 AM) Oral (12/27/19 8:04 AM) Oral (3/3/20 12:16 AM) Dry Weight 81.1 kg (12/23/19 11:40 AM) 66 kg (12/23/19 9:32 AM) 66 kg (12/23/19 9:09 AM) Sensory deficits None (12/23/19 11:40 AM) Mobility assistance Independent, Other: cane (12/23/19 11:40 AM) Social History Social History Type Response Smoking Status 10 or more cigarette s (1/2 pack or more)/day in last 30 days entered on: 11/07/19 Sex
--- OUTSIDE RECORDS SUMMARY | 2023-05-22 15:32 | XMS_ITS | Continuity of Care Document ---
Author Name Unknown Organization [facility] Address [address] [place] [address]- Care Team Providers Care Sheep Shearer Name Role Phone Joss Augustine MD Primary Care Physician Encounter [facility] Date(s): 10/12/19 - 11/17/19 [facility]/[address] [address]- [facility] Attending Physician: Jose Elias Mckenzie MD Admitting Physician: Jose Elias Mckenzie MD Allergies, Adverse Reactions, Alerts Substance Reaction [...] Date: 11/23/18 Stop Date: 11/18/19 Status: Ordered HAND BRACE FOR CARPAL TUNNEL [...] EST, Route to Pharmacy Electronically, [facility], 170, cm, 10/17/19 16:41:00 EST, Height, 90, [...] 300 mg, Subcutaneous Infusion, Every 28 days, [id number] [place] Patient to continue 300 mg reassess in 2 months diagnosis: F11.2, # 1 Doses, 1 Refills, Maintenance, 09/27/19 17:03:20 EST Start Date: 09/27/19 Status: Ordered Suboxone 8 mg-2 mg sublingual film 2 each, Sublingual, Daily, [id number] [place]on dissolve under the tongue fill on/after 11/15/2019 [employer] verified, # 14 film, 0 Refills, Maintenance, 11/15/19 9:34:00 EST, Dry Weight Start Date: 11/15/19 Stop Date: 11/22/19 Status: Ordered Suboxone 8 mg-2 mg sublingual film 2 each, Sublingual, Daily, [id number] Eagleson dissolve under the tongue fill on/after 10/17/2019 [employer] verified, # 14 each, 0 Refills, Maintenance, 10/17/19 16:55:00 EST, [facility], 2 each Sublingual Daily,x7 days,Instr:[id number]... Start Date: 10/17/19 Stop Date: 10/24/19 Status: Ordered topiramate 50 mg oral tablet 1 tablet = 50 mg, By Mouth, 2 times a day, # 60 tablet, 5 Refills, Maintenance, 10/31/19 17:43:00 EST, Tablet, [facility], 170, cm, 10/17/19 16:41:00 EST, Height, [...] Active Heroin use(Confirmed) Active Opiate addiction(Confirmed) Active *[phone]- [facility] Part ner Shahida Montelongo(Confirmed) Active PTSD (post-traumatic stress disorder)(Confirmed) Active Social History Social History Type Response Smoking Status 10 or more cigarette s (1/2 pack or more)/day in last 30 days entered on: 11/07/19 Sex
--- OUTSIDE RECORDS SUMMARY | 2023-05-22 15:32 | XMS_ITS | Continuity of Care Document ---
Author Name Unknown Organization [facility] Address [address] [place] [phone]- Care Team Providers Care Clinical Secretary Name Role Phone Fawn REAL, Joss Martin Primary Care Physician Encounter [facility] Date(s): 07/23/20 - 08/22/20 [facility] [address] [address]- [facility] Allergies, Adverse Reactions, Alerts Substance Reaction Severity [...] tablet, 11 Refills, Maintenance, 02/13/20 12:00:00 EDT, [facility], 163, cm, 12/30/19 8:46:00 EST, Height, 81.1, kg, 12/23/19 11:40:00 EST, Dry Weight Start Date: 02/13/20 Status: Ordered cholecalciferol 1000 intl units oral tablet 1 tablet = 1,000 International_Units, By Mouth, Daily, # 30 tablet, 11 Refills, Maintenance, 07/23/20 17:03:00 EDT, Tablet, Trish [id number] ([facility]), 163, cm, 07/23/20 13:59:00 EDT, Height, 80.45, kg, 07/19/20 11:52:00 EDT, Dry Weight Start Date: 07/23/20 Status: Ordered Descovy 200 mg-25 mg oral tablet 1 tablet, By Mouth, Daily, # 30 tablet, 5 Refills, Maintenance, 08/20/20 16:10:00 EDT, Tablet, [facility], 1 tablet By Mouth Daily,x30 days, 163, cm, 07/23/20 13:59:00 EDT, Height, 80.45, kg, 07/19/20 11:52:00 EDT, Dry Weight Start Date: 08/20/20 Stop Date: 02/16/21 Status: Ordered dolutegravir 50 mg oral tablet 1 tablet = 50 mg, By Mouth, Daily, # 30 tablet, 5 Refills, Maintenance, 06/19/20 11:52:00 EDT, Tablet, [facility], 163, cm, 12/30/19 8:46:00 EST, Height, [...] EDT, Route to Pharmacy Electronically, Trish [id number] ([facility]), 163, cm, 07/23/20 13:59:00 EDT, Height, 80.45, kg, 07/19/20 1... Start Date: 07/23/20 Status: Ordered melatonin 5 mg oral tablet 1 tablet = 5 mg, By Mouth, Daily at bedtime, PRN for insomnia, # 60 tablet, 11 Refills, Maintenance, 05/14/20 14:54:00 EDT, Tablet, [facility], 163, cm, 12/30/19 8:46:00 EST, Height,81.1, kg, 12/23/19 11:40:00 EST, Dry Weight Start Date: 05/14/20 Status: Ordered metFORMIN 500 mg oral tablet 1 tablet = 500 mg, By Mouth, Daily, # 30 tablet, 11 Refills, Maintenance, 03/13/20 17:35:00 EDT, Tablet, [facility], 163, cm, 12/30/19 8:46:00 [...] Refills, Maintenance, 02/13/20 12:00:00 EDT, EC Capsule, [facility], dose increased, 163, cm, [...] 11 Refills, Maintenance, 05/14/20 14:54:00 EDT, Tablet, [facility], 163, cm, 12/30/19 8:46:00 EST, Height, 81.1, kg, 12/23/19 11:40:00 EST, Dry Weight Start Date: 05/14/20 Stop Date: 05/09/21 Status: Ordered Ventolin HFA 108 mcg/inh inhalation aerosol with adapter 2 puffs, Inhalation, Every 4 hours, PRN for wheezing, # 3 each, 3 Refills, Maintenance, 04/21/20 8:52:00 EDT, Aerosol, [facility], 163, cm, 12/30/19 8:46:00 EST, Height, [...] Active Heroin use(Confirmed) Active Opiate addiction(Confirmed) Active *[phone]- [facility] ner Shahidaluz marina Montelongo(Confirmed) Active Polysubstance abuse(Confirmed) Active PTSD (post-traumatic stress disorder)(Confirmed) Active Social History Social History Type Response Smoking Status 10 or more cigarette s (1/2 pack or more)/day in last 30 days; Tobacco user in household: Yes entered on: 07/19/20 Sex
--- OUTSIDE RECORDS SUMMARY | 2023-05-22 15:32 | XMS_ITS | Continuity of Care Document ---
Author Name Unknown Organization [facility] Address [address], [address], [address] [place] [address]- Care Team Providers Care Composite Laminator Name Role Phone Joss Augustine MD Primary Care Physician Encounter [facility] Date(s): 12/26/19 - 02/02/20 [facility] [address], [address] Floor, [address] [place] [address]- [facility] Attending Physician: Rasta REAL, [facility] Referring Physician: Joss Augustine MD Allergies, Adverse [...] 5 Refills, Maintenance, 11/28/19 15:38:00 EST, Tablet, [facility], 1 tablet By Mouth Daily,x30 days, 170, cm, 11/07/19 9:01:00 EST, Height, 90, kg, 10/06/19 0:00:00 EST, Dry Weight Start Date: 11/28/19 Stop Date: 05/26/20 Status: Ordered dolutegravir 50 mg oral tablet 1 tablet = 50 mg, By Mouth, Daily, # 30 tablet, 5 Refills, Maintenance, 11/28/19 12:15:00 EST, Tablet, [facility], 170, cm, 11/07/19 9:01:00 EST, [...] 5 Refills, Maintenance, 10/31/19 17:43:00 EST, Tablet, [facility], 170, cm, 10/17/19 16:41:00 EST, Height, 90, kg, 10/06/19 0:00:00 EST, Dry Weight Start Date: 10/31/19 Stop Date: 04/28/20 Status: Ordered Ventolin HFA 108 mcg/inh inhalation aerosol with adapter 2 puffs, Inhalation, Every 4 hours, PRN for wheezing, # 18 Gm, 5 Refills, Maintenance, 11/23/19 19:51:00 EST, Aerosol, [facility], 170, cm, 11/07/19 9:01:00 EST, Height, [...] Active Heroin use(Confirmed) Active Opiate addiction(Confirmed) Active *[phone]- Care Part ner Shahida Montelongo(Confirmed) Active Polysubstance abuse(Confirmed) Active PTSD (post-traumatic stress disorder)(Confirmed) Active Social History Social History Type Response Smoking Status 10 or more cigarette s (1/2 pack or more)/day in last 30 days entered on: 11/07/19 Sex
--- OUTSIDE RECORDS SUMMARY | 2023-05-22 15:32 | XMS_ITS | Continuity of Care Document ---
Author Name Unknown Organization [facility] Address Unknown Care Team Providers Care Bioanalyst Name Role Phone Joss Augustine MD Primary Care Physician Encounter [facility] Date(s): 09/13/21 - 10/13/21 [facility] Attending Physician: AdmMike tracy Admitting Physician: AdmtrMike Referring Physician: Admtr, Ar8 Allergies, Adverse Reactions, [...] as directed for Type 1 Diabetes Mellitus, 02/10/21 16:04:00 EST, Compound, 163, cm, 07/23/20 13:59:00 EDT, Height, 80.45, kg, 07/19/20 11:52:00 EDT, Dry Weight Start Date: 12/05/20 Stop Date: 11/30/21 Status: Ordered atorvastatin 10 mg oral tablet 1 tablet = 10 mg, By Mouth, Daily, # 30 tablet, 11 Refills, Maintenance, 02/25/21 10:33:00 EDT, [facility], 163, cm, 07/23/20 13:59:00 EDT, Height, 80.45, kg, 07/19/20 11:52:00 EDT, Dry Weight Start Date: 02/25/21 Status: Ordered cholecalciferol 1000 intl units oral tablet 1 tablet = 1,000 International_Units, By Mouth, Daily, # 30 tablet, 11 Refills, Maintenance, 08/29/21 10:17:00 EDT, Tablet, [facility], 164, cm, 05/23/21 15:48:00 EDT, Height, 73, kg, 05/23/21 15:48:00 EDT, Dry Weight Start Date: 08/29/21 Status: Ordered Descovy 200 mg-25 mg oral tablet 1 tablet, By Mouth, Daily, # 30 tablet, 2 Refills, Maintenance, 09/24/21 6:24:00 EST, Tablet, [facility], 1 tablet By Mouth Daily,x30 days, 164, cm, 05/23/21 15:48:00 EDT, Height, 73, kg, 05/23/21 15:48:00 EDT, Dry Weight Start Date: 09/24/21 Stop Date: 12/23/21 Status: Ordered dolutegravir 50 mg oral tablet 1 tablet = 50 mg, By Mouth, Daily, # 30 tablet, 2 Refills, Maintenance, 09/24/21 6:24:00 EST, Tablet, [facility], 164, cm, 05/23/21 15:48:00 [...] 07/16/21 7:01:00 EDT, Route to Pharmacy Electronically, [facility], 164, cm, 05/23/21 15:48:00 EDT, Height, 73, kg, 05/23/21 15:48:00 E... Start Date: 07/16/21 Status: Ordered melatonin 5 mg oral tablet 1 tablet = 5 mg, By Mouth, Daily at bedtime, PRN for insomnia, # 60 tablet, 11 Refills, Maintenance, 05/16/21 3:02:00 EDT, Tablet, [facility], 163, cm, 07/23/20 13:59:00 EDT, Height,80.45, kg, 07/19/20 11:52:00 EDT, Dry Weight Start Date: 05/16/21 Status: Ordered metFORMIN 500 mg oral tablet 1 tablet = 500 mg, By Mouth, Daily, # 30 tablet, 11 Refills, Maintenance, 03/26/21 14:38:00 EDT, Tablet, [facility], 163, cm, 07/23/20 13:59:00 [...] Refills, Maintenance, 02/25/21 10:36:00 EDT, EC Capsule, [facility], dose increased, 163, cm, [...] 11 Refills, Maintenance, 05/16/21 3:02:00 EDT, Tablet, [facility], 163, cm, 07/23/20 13:59:00 EDT, Height, 80.45, kg, 07/19/2011:52:00 EDT, Dry Weight Start Date: 05/16/21 Stop Date: 05/11/22 Status: Ordered Ventolin HFA 108 mcg/inh inhalation aerosol with adapter 2 puffs, Inhalation, Every 4 hours, PRN for wheezing, # 2 each, 5 Refills, Maintenance, 05/20/21 17:54:00 EDT, Aerosol, [facility], 163, cm, 07/23/20 13:59:00 [...] Active Heroin use(Confirmed) Active Opiate addiction(Confirmed) Active *[phone] Care Partn rell Eagle(Confirmed) Active Polysubstance abuse(Confirmed) Active PTSD (post-traumatic stress disorder)(Confirmed) Active Social History Social History Type Response Smoking Status Current every day radha guthrie; Type: Cigarettes; Other: 1/2 pk a day; Tobacco use times per day: 8 CIGS A DAY; Started at age: 15; entered on: 05/24/18 Sex
--- OUTSIDE RECORDS SUMMARY | 2023-05-22 15:32 | XMS_ITS | Continuity of Care Document ---
Author Name Unknown Organization [facility] Address [address] [place] [address]- Care Team Providers Care Roller Die Cutting Machine Operator Name Role Phone Joss Augustine MD Primary Care Physician En[id number] Date(s): 07/30/20 - 08/29/20 [facility] [address] [address]- [facility] Attending Physician: Mike Nuñez Admitting Physician: Mike Nuñez Referring Physician: AdmtrMike Allergies, Adverse Reactions, Alerts Substance Reaction Severity [...] tablet, 11 Refills, Maintenance, 02/13/20 12:00:00 EDT, [facility], 163, cm, 12/30/19 8:46:00 EST, Height, 81.1, kg, 12/23/19 11:40:00 EST, Dry Weight Start Date: 02/13/20 Status: Ordered cholecalciferol 1000 intl units oral tablet 1 tablet = 1,000 International_Units, By Mouth, Daily, # 30 tablet, 11 Refills, Maintenance, 07/23/20 17:03:00 EDT, Tablet, [place] [id number] ([facility]), 163, cm, 07/23/20 13:59:00 EDT, Height, 80.45, kg, 07/19/20 11:52:00 EDT, Dry Weight Start Date: 07/23/20 Status: Ordered Descovy 200 mg-25 mg oral tablet 1 tablet, By Mouth, Daily, # 30 tablet, 5 Refills, Maintenance, 08/20/20 16:10:00 EDT, Tablet, [facility], 1 tablet By Mouth Daily,x30 days, 163, cm, 07/23/20 13:59:00 EDT, Height, 80.45, kg, 07/19/20 11:52:00 EDT, Dry Weight Start Date: 08/20/20 Stop Date: 02/16/21 Status: Ordered dolutegravir 50 mg oral tablet 1 tablet = 50 mg, By Mouth, Daily, # 30 tablet, 5 Refills, Maintenance, 06/19/20 11:52:00 EDT, Tablet, [facility], 163, cm, 12/30/19 8:46:00 EST, [...] EDT, Route to Pharm[facility] Electronically, [id number] 163, cm, 07/23/20 13:59:00 EDT, Height, 80.45, kg, 07/19/20 1... Start Date: 07/23/20 Status: Ordered melatonin 5 mg oral tablet 1 tablet = 5 mg, By Mouth, Daily at bedtime, PRN for insomnia, # 60 tablet, 11 Refills, Maintenance, 05/14/20 14:54:00 EDT, Tablet, [facility], 163, cm, 12/30/19 8:46:00 EST, Height,81.1, kg, 12/23/19 11:40:00 EST, Dry Weight Start Date: 05/14/20 Status: Ordered metFORMIN 500 mg oral tablet 1 tablet = 500 mg, By Mouth, Daily, # 30 tablet, 11 Refills, Maintenance, 03/13/20 17:35:00 EDT, Tablet, [facility], 163, cm, 12/30/19 8:46:00 EST, [...] Refills, Maintenance, 02/13/20 12:00:00 EDT, EC Capsule, [facility], dose increased, 163, cm, 12/30/19 [...] 11 Refills, Maintenance, 05/14/20 14:54:00 EDT, Tablet, [facility], 163, cm, 12/30/19 8:46:00 EST, Height, 81.1, kg, 12/23/19 11:40:00 EST, Dry Weight Start Date: 05/14/20 Stop Date: 05/09/21 Status: Ordered Ventolin HFA 108 mcg/inh inhalation aerosol with adapter 2 puffs, Inhalation, Every 4 hours, PRN for wheezing, # 3 each, 3 Refills, Maintenance, 04/21/20 8:52:00 EDT, Aerosol, [facility], 163, cm, 12/30/19 8:46:00 EST, [...] Active Heroin use(Confirmed) Active Opiate addiction(Confirmed) Active *[phone] Care Partn rell Eagle(Confirmed) Active Polysubstance abuse(Confirmed) Active PTSD (post-traumatic stress disorder)(Confirmed) Active Social History Social History Type Response Smoking Status 10 or more cigarette s (1/2 pack or more)/day in last 30 days; Tobacco user in household: Yes entered on: 07/19/20 Sex
--- OUTSIDE RECORDS SUMMARY | 2023-05-22 15:32 | XMS_ITS | Continuity of Care Document ---
Author Name Unknown Organization [facility] Address [address] [place] [address]- Care Team Providers Care Perl Programmer Name Role Phone Fawn REAL, Joss Martin Primary Care Physician Encounter [facility] Date(s): 05/14/20 - 06/13/20 [facility]/[address] [address]- [facility] Allergies, Adverse Reactions, Alerts Substance Reaction [...] tablet, 11 Refills, Maintenance, 02/13/20 12:00:00 EDT, [facility], 163, cm, 12/30/19 [...] 5 Refills, Maintenance, 02/13/20 12:00:00 EDT, Tablet, [facility], 1 tablet By Mouth Daily,x30 days, 163, cm, 12/30/19 8:46:00 EST, Height, 81.1, kg, 12/23/19 11:40:00 EST, Dry Weight Start Date: 02/13/20 Stop Date: 08/11/20 Status: Ordered dolutegravir 50 mg oral tablet 1 tablet = 50 mg, By Mouth, Daily, # 30 tablet, 5 Refills, Maintenance, 11/28/19 12:15:00 EST, Tablet, [facility], 170, cm, 11/07/19 9:01:00 EST, [...] times a day, # 90 capsule, Refills 3, Tot. Refills 3, Maintenance, 03/13/20 17:36:00 EDT, Route to Pharmacy Electronically, [facility], 163, cm, 12/30/19 8:46:00 EST, Height, 81.1, kg, 12/23/19 11:40:00... Start Date: 03/13/20 Status: Ordered melatonin 5 mg oral tablet 1 tablet = 5 mg, By Mouth, Daily at bedtime, PRN for insomnia, # 60 tablet, 11 Refills, Maintenance, 05/14/20 14:54:00 EDT, Tablet, [facility], 163, cm, 12/30/19 8:46:00 EST, Height,81.1, kg, 12/23/19 11:40:00 EST, Dry Weight Start Date: 05/14/20 Status: Ordered metFORMIN 500 mg oral tablet 1 tablet = 500 mg, By Mouth, Daily, # 30 tablet, 11 Refills, Maintenance, 03/13/20 17:35:00 EDT, Tablet, [facility], 163, cm, 12/30/19 8:46:00 EST, [...] Refills, Maintenance, 02/13/20 12:00:00 EDT, EC Capsule, [facility], dose increased, 163, [...] 11 Refills, Maintenance, 05/14/20 14:54:00 EDT, Tablet, [facility], 163, cm, 12/30/19 8:46:00 EST, Height, 81.1, kg, 12/23/19 11:40:00 EST, Dry Weight Start Date: 05/14/20 Stop Date: 05/09/21 Status: Ordered Ventolin HFA 108 mcg/inh inhalation aerosol with adapter 2 puffs, Inhalation, Every 4 hours, PRN for wheezing, # 3 each, 3 Refills, Maintenance, 04/21/20 8:52:00 EDT, Aerosol, [facility], 163, cm, 12/30/19 8:46:00 EST, [...] Active Heroin use(Confirmed) Active Opiate addiction(Confirmed) Active *[phone]- Care Part ner Shahida Montelongo(Confirmed) Active Polysubstance abuse(Confirmed) Active PTSD (post-traumatic stress disorder)(Confirmed) Active Social History Social History Type Response Smoking Status 10 or more cigarette s (1/2 pack or more)/day in last 30 days entered on: 11/07/19 Sex
--- OUTSIDE RECORDS SUMMARY | 2023-05-22 15:33 | XMS_ITS | Continuity of Care Document ---
Author Name Unknown Organization [facility] Address Unknown Care Team Providers Care Wheat Washer Name Role Phone Joss Augustine MD Primary Care Phys[place] [facility] [place]21 [facility] Attending Physician: Joss Augustine MD Admitting Physician: Joss Augustine MD Allergies, Adverse Reactions, Alerts No Known [...] tablet, 11 Refills, Maintenance, 02/25/21 10:33:00 EDT, [facility], 163, cm, 07/23/20 13:59:00 EDT, Height, 80.45, kg, 07/19/20 11:52:00 EDT, Dry Weight Start Date: 02/25/21 Status: Ordered cholecalciferol 1000 intl units oral tablet 1 tablet = 1,000 International_Units, By Mouth, Daily, # 30 tablet, 11 Refills, Maintenance, 08/29/21 10:17:00 EDT, Tablet, [facility], 164, cm, 05/23/21 15:48:00 EDT, Height, 73, kg, 05/23/21 15:48:00 EDT, Dry Weight Start Date: 08/29/21 Status: Ordered Descovy 200 mg-25 mg oral tablet 1 tablet, By Mouth, Daily, # 30 tablet, 2 Refills, Maintenance, 09/24/21 6:24:00 EST, Tablet, [facility], 1 tablet By Mouth Daily,x30 days, 164, cm, 05/23/21 15:48:00 EDT, Height, 73, kg, 05/23/21 15:48:00 EDT, Dry Weight Start Date: 09/24/21 Stop Date: 12/23/21 Status: Ordered dolutegravir 50 mg oral tablet 1 tablet = 50 mg, By Mouth, Daily, # 30 tablet, 2 Refills, Maintenance, 09/24/21 6:24:00 EST, Tablet, [facility], 164, cm, 05/23/21 15:48:00 EDT, [...] Stop Date: 01/23/22 Status: Ordered Freestyle Lite Monitor See Instructions, # 1 each, Refills 0, Tot. Refills 0, Maintenance, Dx: Type 2 Diabetes Mellitus (E11.9) Use as directed VINICIUS: 99, 11/30/21 9:06:00 EST, Supply, 164, cm, 05/23/21 15:48:00 EDT, Height,73, kg, 05/23/21 15:48:00 EDT, Dry Weight Start Date: 11/30/21 Stop Date: 12/30/21 Status: Ordered Freestyle Lite Test Strips See [...] 07/16/21 7:01:00 EDT, Route to Pharmacy Electronically, [facility], 164, cm, 05/23/21 15:48:00 EDT, Height, 73, kg, 05/23/21 15:48:00 E... Start Date: 07/16/21 Status: Ordered melatonin 5 mg oral tablet 1 tablet = 5 mg, By Mouth, Daily at bedtime, PRN for insomnia, # 60 tablet, 11 Refills, Maintenance, 05/16/21 3:02:00 EDT, Tablet, [facility], 163, cm, 07/23/20 13:59:00 EDT, Height,80.45, kg, 07/19/20 11:52:00 EDT, Dry Weight Start Date: 05/16/21 Status: Ordered metFORMIN 500 mg oral tablet 1 tablet = 500 mg, By Mouth, Daily, # 30 tablet, 11 Refills, Maintenance, 03/26/21 14:38:00 EDT, Tablet, [facility], 163, cm, 07/23/20 13:59:00 [...] Refills, Maintenance, 02/25/21 10:36:00 EDT, EC Capsule, [facility], dose increased, 163, cm, [...] 11 Refills, Maintenance, 05/16/21 3:02:00 EDT, Tablet, [facility], 163, cm, 07/23/20 13:59:00 EDT, Height, 80.45, kg, 07/19/2011:52:00 EDT, Dry Weight Start Date: 05/16/21 Stop Date: 05/11/22 Status: Ordered Ventolin HFA 108 mcg/inh inhalation aerosol with adapter 2 puffs, Inhalation, Every 4 hours, PRN for wheezing, # 2 each, 5 Refills, Maintenance, 12/12/21 15:20:00 EST, Aerosol, [facility], 164, cm, 05/23/21 15:48:00 EDT, Height, 73, kg, 05/23/21 15:48:00 EDT, Dry Weight Start Date: 12/12/21 Stop Date: 06/05/23 Status: Ordered Problem List Condition Effective Dates Status Health Status Inform ant Anxiety(Confirmed) Active Asthma(Confirmed) Active ADHD (attention deficit hype ractivity disorder)(Confirmed) Active Cocaine abuse(Confirmed) Active Depression(Confirmed) Active GERD - Gastro-esophageal ref lux disease(Confirmed) Active HIV disease(Confirmed) Active Hyperlipidemia(Confirmed) Active Prediabetes(Confirmed) Active Insomnia(Confirmed) Active Migraine(Confirmed) Active Heroin use(Confirmed) Active Opiate addiction(Confirmed) Active *[id number] Care Partn rell Eagle(Confirmed) Active Polysubstance abuse(Confirmed) Active PTSD (post-traumatic stress disorder)(Confirmed) Active Social History Social History Type Response Smoking Status Current every day radha guthrie; Type: Cigarettes; Other: 1/2 pk a day; Tobacco use times per day: 8 CIGS A DAY; Started at age: 15; entered on: 05/24/18 Sex
--- OUTSIDE RECORDS SUMMARY | 2023-05-22 15:33 | XMS_ITS | Continuity of Care Document ---
Author Name Unknown Organization [facility] Address Unknown Care Team Providers Care Chief Credit Officer Name Role Phone Joss Augustine MD Primary Care Physician [place] [facility] [place]21 [facility] Attending Physician: Mike Nuñez Admitting Physician: Mike Nuñez Referring Physician: Admtr, Ar8 Allergies, Adverse Reactions, Alerts No Known Allergies [...] tablet, 11 Refills, Maintenance, 02/25/21 10:33:00 EDT, [facility], 163, cm, 07/23/20 13:59:00 EDT, Height, 80.45, kg, 07/19/20 11:52:00 EDT, Dry Weight Start Date: 02/25/21 Status: Ordered cholecalciferol 1000 intl units oral tablet 1 tablet = 1,000 International_Units, By Mouth, Daily, # 30 tablet, 11 Refills, Maintenance, 08/29/21 10:17:00 EDT, Tablet, [facility], 164, cm, 05/23/21 15:48:00 EDT, Height, 73, kg, 05/23/21 15:48:00 EDT, Dry Weight Start Date: 08/29/21 Status: Ordered Descovy 200 mg-25 mg oral tablet 1 tablet, By Mouth, Daily, # 30 tablet, 2 Refills, Maintenance, 09/24/21 6:24:00 EST, Tablet, [facility], 1 tablet By Mouth Daily,x30 days, 164, cm, 05/23/21 15:48:00 EDT, Height, 73, kg, 05/23/21 15:48:00 EDT, Dry Weight Start Date: 09/24/21 Stop Date: 12/23/21 Status: Ordered dolutegravir 50 mg oral tablet 1 tablet = 50 mg, By Mouth, Daily, # 30 tablet, 2 Refills, Maintenance, 09/24/21 6:24:00 EST, Tablet, [facility], 164, cm, 05/23/21 15:48:00 EDT, [...] 07/16/21 7:01:00 EDT, Route to Pharmacy Electronically, [facility], 164, cm, 05/23/21 15:48:00 EDT, Height, 73, kg, 05/23/21 15:48:00 E... Start Date: 07/16/21 Status: Ordered melatonin 5 mg oral tablet 1 tablet = 5 mg, By Mouth, Daily at bedtime, PRN for insomnia, # 60 tablet, 11 Refills, Maintenance, 05/16/21 3:02:00 EDT, Tablet, [facility], 163, cm, 07/23/20 13:59:00 EDT, Height,80.45, kg, 07/19/20 11:52:00 EDT, Dry Weight Start Date: 05/16/21 Status: Ordered metFORMIN 500 mg oral tablet 1 tablet = 500 mg, By Mouth, Daily, # 30 tablet, 11 Refills, Maintenance, 03/26/21 14:38:00 EDT, Tablet, [facility], 163, cm, 07/23/20 13:59:00 EDT, [...] Refills, Maintenance, 02/25/21 10:36:00 EDT, EC Capsule, [facility], dose increased, 163, cm, 07/23/20 [...] 11 Refills, Maintenance, 05/16/21 3:02:00 EDT, Tablet, [facility], 163, cm, 07/23/20 13:59:00 EDT, Height, 80.45, kg, 07/19/2011:52:00 EDT, Dry Weight Start Date: 05/16/21 Stop Date: 05/11/22 Status: Ordered Ventolin HFA 108 mcg/inh inhalation aerosol with adapter 2 puffs, Inhalation, Every 4 hours, PRN for wheezing, # 2 each, 5 Refills, Maintenance, 12/12/21 15:20:00 EST, Aerosol, [facility], 164, cm, 05/23/21 15:48:00 [...] Active Heroin use(Confirmed) Active Opiate addiction(Confirmed) Active *[phone] Care Partn rell Eagle(Confirmed) Active Polysubstance abuse(Confirmed) Active PTSD (post-traumatic stress disorder)(Confirmed) Active Social History Social History Type Response Smoking Status Current every day radha guthrie; Type: Cigarettes; Other: 1/2 pk a day; Tobacco use times per day: 8 CIGS A DAY; Started at age: 15; entered on: 05/24/18 Sex
--- OUTSIDE RECORDS SUMMARY | 2023-05-22 15:33 | XMS_ITS | Continuity of Care Document ---
Author Name Unknown Organization [facility] ter Address [address] [place] [address]- Care Team Providers Care Investor Relations Specialist Name Role Phone Joss Augustine MD Primary Care Physician Encounter [facility] [place] Date(s): 11/28/19 - 02/05/[address] [address]- [facility] Attending Physician: Joss Augustine [...] 5 Refills, Maintenance, 11/28/19 15:38:00 EST, Tablet, [facility], 1 tablet By Mouth Daily,x30 days, 170, cm, 11/07/19 9:01:00 EST, Height, 90, kg, 10/06/19 0:00:00 EST, Dry Weight Start Date: 11/28/19 Stop Date: 05/26/20 Status: Ordered dolutegravir 50 mg oral tablet 1 tablet = 50 mg, By Mouth, Daily, # 30 tablet, 5 Refills, Maintenance, 11/28/19 12:15:00 EST, Tablet, [facility], 170, cm, 11/07/19 9:01:00 EST, [...] EST, Tablet, [facility], 170, cm, 10/17/19 16:41:00 EST, Height, 90, kg, 10/06/19 0:00:00 EST, Dry Weight Start Date: 10/31/19 Stop Date: 04/28/20 Status: Ordered Ventolin HFA 108 mcg/inh inhalation aerosol with adapter 2 puffs, Inhalation, Every 4 hours, PRN for wheezing, # 18 Gm, 5 Refills, Maintenance, 11/23/19 19:51:00 EST, Aerosol, [facility], 170, cm, 11/07/19 9:01:00 EST, Height, [...] Active Heroin use(Confirmed) Active Opiate addiction(Confirmed) Active *[id number]- [facility] [place] Part ner Shahida Montelongo(Confirmed) Active Polysubstance abuse(Confirmed) Active PTSD (post-traumatic stress disorder)(Confirmed) Active Social History Social History Type Response Smoking Status 10 or more cigarette s (1/2 pack or more)/day in last 30 days entered on: 11/07/19 Sex
--- OUTSIDE RECORDS SUMMARY | 2023-05-22 15:33 | XMS_ITS | Continuity of Care Document ---
Author Name Unknown Organization [facility] Address [address] [place] [id number]- Care Team Providers Care Bag Sorter Name Role Phone Joss Augustine MD Primary Care Physician [place] [facility] [facility] [place]23 - 03/18/[address] [address] Attending Physician: Mike Nuñez Admitting Physician: AdmtrMike Referring Physician: Admtr, Ar8 Allergies, Adverse Reactions, Alerts No Known Allergies Immunizations Given and Recorded Vaccine Date Status Refusal Reason [id number] 12y+ bivalent booster vax 09/29/22 Given influenza [...] tablet, 0 Refills, Maintenance, 02/13/23 13:17:00 EDT, [facility], 164, cm, 01/19/23 15:23:00 EDT, Height, 68.18, kg, 01/15/23 10:48:00 EDT, . Start Date: 02/13/23 Stop Date: 10/26/24 Status: Ordered albuterol 0.083% inhalation solution 3 mL = 2.5 mg, Inhalation, Every 6 hours, PRN for wheezing, home delivery, # 25 each, 2 Refills, Maintenance, 01/01/23 9:12:00 EST, Solution, [facility], 164, cm, 01/01/23 8:52:00 EST, [...] tablet, 11 Refills, Maintenance, 03/19/22 10:39:00 EDT, [facility], 164, cm, 05/23/21 15:48:00 EDT, Height, 73, kg, 05/23/21 15:48:00 EDT, DryWeight Start Date: 03/19/22 Status: Ordered cholecalciferol 1000 intl units oral tablet 1 tablet = 1,000 International_Units, By Mouth, Daily, # 30 tablet, 11 Refills, Maintenance, 02/18/23 7:13:00 EDT, Tablet, [facility], 164, cm, 01/19/23 15:23:00 EDT, Height, 68.18, kg, 01/15/23 10:48:00 EDT, Dry Weight Start Date: 02/18/23 Status: Ordered Descovy 200 mg-25 mg oral tablet 1 tablet, By Mouth, Daily, # 30 tablet, 3 Refills, Maintenance, 11/18/22 18:13:00 EST, Tablet, [facility], 1 tablet By Mouth Daily,x30 days, 164, cm, 11/18/22 16:28:00 EST, Height, 73, kg, 05/23/21 15:48:00 EDT, Dry Weight Start Date: 11/18/22 Stop Date: 03/18/23 Status: Ordered dolutegravir 50 mg oral tablet 1 tablet = 50 mg, By Mouth, Daily, # 30 tablet, 3 Refills, Maintenance, 11/18/22 18:13:00 EST, Tablet, [facility], 164, cm, 11/18/22 16:28:00 EST, Height, 73, kg, 05/23/21 15:48:00 EDT, Dry Weight Start Date: 11/18/22 Stop Date: 03/18/23 Status: Ordered Flonase 50 mcg/inh nasal spray 1 sprays, Nares, Both, 2 times a day, # 16 Gm, 0 Refills, Maintenance, 01/01/23 9:25:00 EST, [place], Partial fill upon patient request [...] tablet, 4 Refills, Maintenance,07/08/22 13:18:00 EDT, Tablet, [facility], 164, cm, 05/23/21 15:48:00 EDT, Height,73, kg, 05/23/21 15:48:00 EDT, Dry Weight Start Date: 07/08/22 Status: Ordered metFORMIN 500 mg oral tablet 1 tablet = 500 mg, By Mouth, Daily, # 30 tablet, 4 Refills, Maintenance, 12/18/22 16:42:00 EST, Tablet, [facility], 164, cm, 11/18/22 16:28:00 EST, [...] Gm, 3 Refills, Maintenance, 01/19/23 14:48:00 EDT, [facility], For constipation: one capful by mouth, every day, tit... Start Date: 01/19/23 Status: Ordered mirtazapine 15 mg oral tablet 1 tablet = 15 mg, By Mouth, Daily at bedtime, # 90 tablet, 1 Refills, Maintenance, 01/16/23 11:22:00 EDT, Tablet, [facility], Partial fill upon patient request if the prescription isfor a schedule II opioid drug., 164, cm, 01/15/23 1... Start Date: 01/16/23 Stop Date: 02/15/23 Status: Ordered nicotine 14 mg/24 hr transdermal film, extended release 1 patch, Topically, Daily, # 30 patch, 1 Refills, Maintenance, 02/23/23 4:50:00 EDT, Patch, [facility], Partial fill upon patient request if the prescription is for a schedule II opioid drug., 1 patch Topically Daily, 164, cm, ... Start Date: 02/23/23 Status: Ordered omeprazole 40 mg oral enteric coated capsule 1 capsule = 40 mg, By Mouth, 2 times a day, # 60 capsule, 11 Refills, Maintenance, 03/19/22 10:38:00 EDT, EC Capsule, [facility], dose increased, 164, cm, 05/23/21 [...] capsule, 1 Refills, Maintenance, 01/16/23 11:21:00 EDT, [facility], Partial fill upon patient request [...] 01/15/23 11:16:00 EDT, Route to Pharmacy Electronically, [facility], Partial fill upon patient request... Start Date: 01/15/23 Stop Date: 06/14/23 Status: Ordered sertraline 50 mg oral tablet 1 tablet = 50 mg, By Mouth, Daily, # 90 tablet, 1 Refills, Maintenance, 01/01/23 17:40:00 EST, Tablet, [facility], Partial fill upon patient request if the prescription is for a schedule II opioid drug., 164, cm, 01/01/23 8:52:00 EST,... Start Date: 01/01/23 Status: Ordered topiramate 50 mg oral tablet 1 tablet = 50 mg, By Mouth, 2 times a day, # 60 tablet, 7 Refills, Maintenance, 01/15/23 11:16:00 EDT, Tablet, [facility], 164, cm, 01/15/23 10:48:00 EDT, Height, 68.18, kg, 01/15/2310:48:00 EDT, Dry Weight Start Date: 01/15/23 Stop Date: 09/12/23 Status: Ordered Ventolin HFA 108 mcg/inh inhalation aerosol with adapter 2 puffs, Inhalation, Every 4 hours, PRN for wheezing, # 2 each, 5 Refills, Maintenance, 01/15/23 11:10:00 EDT, Aerosol, [facility], 164, cm, 01/15/23 10:48:00 EDT, [...] use Confirmed Active Opiate addiction Confirmed Active *[id number] Hospitality Aide Marcella Sargent Confirmed Active Breast cancer screening Confirmed Active Polysubstance abuse Confirmed Active PTSD (post-traumatic stress disorder) Confirmed Active Social History Social History Type Response Smoking Status 10 or more cigarette s (1/2 pack or more)/day in last 30 days; Other: pack a day; entered on: 11/18/22 Sex Patient Care team information Care Team Personnel Name: Too MARINO, Raina Donahue Position: [facility] Associate Professional Member Role: Primary Care Nurse Address: Address: [address] [place] [id number]- Name: Joss Augustine MD Position: [facility] Physician - Primary Care Member Role: PCP Address: Address: [address] [place] [address]- Name: Radha Murillo RN Position: [facility] Web Site Administrator Member Role: Primary Care Nurse Care Team Related Persons Name: SARWAT PEARL Address: [address] [place] [address] Name: CRYSTAL PEARL Address: [address] [place] [address] Name: DARRICK RENEE
--- OUTSIDE RECORDS SUMMARY | 2023-05-22 15:33 | XMS_ITS | Continuity of Care Document ---
Author Name Unknown Organization [facility] Address [address] [place] [address]- Care Team Providers Care Deputy Brand Inspector Name Role Phone Joss Augustine MD Primary [id number] - 10/08/22 [facility] [address]- Attending Physician: Joss Augustine MD Admitting Physician: Joss Augustine MD Allergies, Adverse Reactions, Alerts No Known Allergies Immunizations Given and Recorded Vaccine Date Status Refusal Reason [id number] 12y+ bivalent booster vax 09/29/22 Given influenza [...] tablet, 11 Refills, Maintenance, 03/19/22 10:39:00 EDT, [facility], 164, cm, 05/23/21 15:48:00 EDT, Height, 73, kg, 05/23/21 15:48:00 EDT, DryWeight Start Date: 03/19/22 Status: Ordered cholecalciferol 1000 intl units oral tablet 1 tablet = 1,000 International_Units, By Mouth, Daily, # 30 tablet, 4 Refills, Maintenance, 09/04/22 16:07:00 EST, Tablet, [facility], 164, cm, 05/23/21 15:48:00 EDT, Height, 73, kg,05/23/21 15:48:00 EDT, Dry Weight Start Date: 09/04/22 Status: Ordered Descovy 200 mg-25 mg oral tablet 1 tablet, By Mouth, Daily, # 30 tablet, 1 Refills, Maintenance, 09/04/22 16:06:00 EST, Tablet, [facility], 1 tablet By Mouth Daily,x30 days, 164, cm, 05/23/21 15:48:00 EDT, Height, 73, kg, 05/23/21 15:48:00 EDT, Dry Weight Start Date: 09/04/22 Stop Date: 11/03/22 Status: Ordered dolutegravir 50 mg oral tablet 1 tablet = 50 mg, By Mouth, Daily, # 30 tablet, 1 Refills, Maintenance, 09/04/22 16:06:00 EST, Tablet, [facility], 164, cm, 05/23/21 15:48:00 EDT, Height, 73, kg, 05/23/21 15:48:00 EDT, Dry Weight Start Date: 09/04/22 Stop Date: 11/03/22 Status: Ordered Freestyle Lite Lancets See Instructions, [...] tablet, 4 Refills, Maintenance,07/08/22 13:18:00 EDT, Tablet, [facility], 164, cm, 05/23/21 15:48:00 EDT, Height,73, kg, 05/23/21 15:48:00 EDT, Dry Weight Start Date: 07/08/22 Status: Ordered metFORMIN 500 mg oral tablet 1 tablet = 500 mg, By Mouth, Daily, # 30 tablet, 4 Refills, Maintenance, 07/08/22 13:18:00 EDT, Tablet, [facility], 164, cm, 05/23/21 15:48:00 EDT, Height, 73, kg, 05/23/21 15:48:00 EDT, Dry Weight Start Date: 07/08/22 Status: Ordered Methadone = 20 mg, By Mouth, Daily, 0 Refills, Maintenance, 12/23/19 16:27:00 EST, Partial fill upon patient request Start Date: 12/23/19 Status: Ordered omeprazole 40 mg oral enteric coated capsule 1 capsule = 40 mg, By Mouth, 2 times a day, # 60 capsule, 11 Refills, Maintenance, 03/19/22 10:38:00 EDT, EC Capsule, [facility], dose increased, 164, cm, 05/23/21 15:48:00 EDT, Height, 73, kg, 05/23/21 15:48:00 EDT, Dry Weight Start Date: 03/19/22 Stop Date: 03/14/23 Status: Ordered one cane one cane, See Instructions, # 1 Unknown, Refills 0, Tot. Refills 0, Maintenance, one cane to be dispensed to pt, 05/23/21 19:54:00 EDT, Supply Start Date: 05/23/21 Status: Ordered Senna 8.6 mg oral tablet 17.2 mg, 2, tablet, By Mouth, Daily at bedtime, for 30 days, # 60 tablet, Refills 4, Tot. Refills 4, Acute, 12/05/22 13:19:00 EST, 07/08/22 13:19:00 EDT, Route to Pharmacy Electronically, [facility], Partial fill upon patient request... Start Date: 07/08/22 Stop Date: 12/05/22 Status: Ordered sertraline 100 mg oral tablet 1 tablet = 100 mg, By Mouth, Daily, # 90 tablet, 3 Refills, Maintenance, 01/17/19 11:48:28 EDT, Tablet Start Date: 01/17/19 Stop Date: 01/12/20 Status: Ordered topiramate 50 mg oral tablet 1 tablet = 50 mg, By Mouth, 2 times a day, # 60 tablet, 4 Refills, Maintenance, 07/08/22 13:18:00 EDT, Tablet, [facility], 164, cm, 05/23/21 15:48:00 EDT, Height, 73, kg, 05/23/21 15:48:00 EDT, Dry Weight Start Date: 07/08/22 Stop Date: 12/05/22 Status: Ordered Ventolin HFA 108 mcg/inh inhalation aerosol with adapter 2 puffs, Inhalation, Every 4 hours, PRN for wheezing, # 2 each, 5 Refills, Maintenance, 12/12/21 15:20:00 EST, Aerosol, [facility], 164, cm, 05/23/21 15:48:00 EDT, Height, 73, kg, 05/23/21 15:48:00 EDT, Dry Weight Start Date: 12/12/21 Stop Date: 06/05/23 Status: Ordered Ventolin HFA 108 mcg/inh inhalation aerosol with adapter 2 puffs, Inhalation, Every 4 hours, PRN for wheezing, # 1 each, 11 Refills, Maintenance, 10/02/22 9:53:00 EST, Aerosol, [facility], 164, cm, 09/29/22 11:08:00 EST, Height, 73, kg, 05/23/21 15:48:00 EDT, Dry Weight Start Date: 10/02/22 Status: Ordered Problem List Condition Confirmation Course [...] use Confirmed Active Opiate addiction Confirmed Active *[id number] Motion Picture Commentator Minoo Eagle Confirmed Active Breast cancer screening Confirmed Active Polysubstance abuse Confirmed Active PTSD (post-traumatic stress disorder) Confirmed Active Social History Social History Type Response Smoking Status Current every day sm oker; Type: Cigarettes; Other: 1/2 pk a day; Tobacco use times per day: 8 CIGS A DAY; Started at age: 15; entered on: 05/24/18 Sex Patient Care team information Care Team Personnel Name: Raina Gage NP Position: [facility] Associate Professional Member Role: Primary Care Nurse Address: Address: [address] [place] [id number] Name: Joss Augustine MD Position: [facility] Primary Care Physician Member Role: PCP Address: Address: [address] [place] [address] Name: Radha Murillo RN Position: [facility] Manufacturing Project Engineer Member Role: Primary Care Nurse Care Team Related Persons Name: SARWAT PEARL Address: [address] [place] [address] Name: CRYSTAL PEARL Address: [address] [place] [address] Name: DARRICK RENEE
--- OUTSIDE RECORDS SUMMARY | 2023-05-22 15:33 | XMS_ITS | Continuity of Care Document ---
Author Name Unknown Organization [facility] Address [address] [place] [address]- Care Team Providers Care Farm Labor Contractor Name Role Phone Joss Augustine MD Primary Care Physician Encounter [facility] [place] Date(s): 10/14/19 - 11/13/19 [facility]/[address] [address]- [facility] Attending Physician: Romelia Wong MD Admitting Physician: Romelia Wong MD Allergies, Adverse Reactions, Alerts Substance Reaction [...] 10/17/19 17:05:00 EST, Route to Pharmacy Electronically, [facility], 170, cm, 10/17/19 16:41:00 EST, Height, [...] 300 mg, Subcutaneous Infusion, Every 28 days, [id number] Eagleson Patient to continue 300 mg reassess in 2 months diagnosis: F11.2, # 1 Doses, 1 Refills, Maintenance, 09/27/19 17:03:20 EST Start Date: 09/27/19 Status: Ordered Suboxone 8 mg-2 mg sublingual film 2 each, Sublingual, Daily, [id number] Eagleson dissolve under the tongue fill on/after 11/07/2019 NURSERY LABORER verified, # 16 film, 0 Refills, Maintenance, 11/07/19 9:40:00 EST, Dry Weight Start Date: 11/07/19 Stop Date: 11/15/19 Status: Ordered Suboxone 8 mg-2 mg sublingual film 2 each, Sublingual, Daily, [id number] [place]on dissolve under the tongue fill on/after 10/17/2019 NURSERY LABORER verified, # 14 each, 0 Refills, Maintenance, 10/17/19 16:55:00 EST, [facility], 2 each Sublingual Daily,x7 days,Instr:[id number]... Start Date: 10/17/19 Stop Date: 10/24/19 Status: Ordered topiramate 50 mg oral tablet 1 tablet = 50 mg, By Mouth, 2 times a day, # 60 tablet, 5 Refills, Maintenance, 10/31/19 17:43:00 EST, Tablet, [facility], 170, cm, 10/17/19 16:41:00 EST, Height, [...] Active Heroin use(Confirmed) Active Opiate addiction(Confirmed) Active *[id number]- [facility] [place] Part ner Shahida Montelongo(Confirmed) Active PTSD (post-traumatic stress disorder)(Confirmed) Active Social History Social History Type Response Smoking Status 10 or more cigarette s (1/2 pack or more)/day in last 30 days entered on: 11/07/19 Sex
--- OUTSIDE RECORDS SUMMARY | 2023-05-22 15:33 | XMS_ITS | Continuity of Care Document ---
Author Name Unknown Organization [facility] Address [address] [place] [address]- Care Team Providers Care Payloader Operator Name Role Phone Joss Augustine MD Primary Care Physician [place] [facility] [place](s): 01/09/20 - 01/19/20 [facility]/[address] [address]- [facility] Attending Physician: AdmMike tracy Admitting Physician: AdmtrMike Referring Physician: Admtr, Mike Allergies, Adverse Reactions, Alerts Substance Reaction Severity [...] as directed for Type 1 Diabetes Mellitus, 03/25/20 13:26:00 EDT, Compound, 163, cm, 12/30/19 8:46:00 [...] 5 Refills, Maintenance, 11/28/19 15:38:00 EST, Tablet, [facility], 1 tablet By Mouth Daily,x30 days, 170, cm, 11/07/19 9:01:00 EST, Height, 90, kg, 10/06/19 0:00:00 EST, Dry Weight Start Date: 11/28/19 Stop Date: 05/26/20 Status: Ordered dolutegravir 50 mg oral tablet 1 tablet = 50 mg, By Mouth, Daily, # 30 tablet, 5 Refills, Maintenance, 11/28/19 12:15:00 EST, Tablet, [facility], 170, cm, 11/07/19 9:01:00 EST, Height, [...] 5 Refills, Maintenance, 10/31/19 17:43:00 EST, Tablet, [facility], 170, cm, 10/17/19 16:41:00 EST, Height, 90, kg, 10/06/19 0:00:00 EST, Dry Weight Start Date: 10/31/19 Stop Date: 04/28/20 Status: Ordered Ventolin HFA 108 mcg/inh inhalation aerosol with adapter 2 puffs, Inhalation, Every 4 hours, PRN for wheezing, # 18 Gm, 5 Refills, Maintenance, 11/23/19 19:51:00 EST, Aerosol, [facility], 170, cm, 11/07/19 9:01:00 EST, Height, 90, [...] Active Heroin use(Confirmed) Active Opiate addiction(Confirmed) Active *[id number]- Care Part ner Shahida Montelongo(Confirmed) Active Polysubstance abuse(Confirmed) Active PTSD (post-traumatic stress disorder)(Confirmed) Active Social History Social History Type Response Smoking Status 10 or more cigarette s (1/2 pack or more)/day in last 30 days entered on: 11/07/19 Sex
--- OUTSIDE RECORDS SUMMARY | 2023-05-22 15:33 | XMS_ITS | Continuity of Care Document ---
Author Name Unknown Organization [facility] Address [address] [place] [address]- Care Team Providers Care Orchardist Name Role Phone Joss Augustine MD Primary Care Physician [place] [facility] [place]/16/23 - 04/25/[address] [address]- Attending Physician: Marta Valadez CNM Admitting Physician: Marta Valadez CNM Referring Physician: Marta Valadez CNM Allergies, Adverse Reactions, Alerts No Known Allergies Immunizations Given and Recorded Vaccine Date Status Refusal Reason [id number] 12y+ bivalent booster vax 09/29/22 Given influenza [...] tablet, 0 Refills, Maintenance, 02/13/23 13:17:00 EDT, [facility], 164, cm, 01/19/23 15:23:00 EDT, Height, 68.18, kg, 01/15/23 10:48:00 EDT, . Start Date: 02/13/23 Stop Date: 10/26/24 Status: Ordered albuterol 0.083% inhalation solution 3 mL = 2.5 mg, Inhalation, Every 6 hours, PRN for wheezing, home delivery, # 25 each, 2 Refills, Maintenance, 01/01/23 9:12:00 EST, Solution, [facility], 164, cm, 01/01/23 8:52:00 EST, Height, [...] Daily, # 30 tablet, 11 Refills, Maintenance, 03/27/23 10:16:00 EDT, [facility], 164, cm, 01/19/23 15:23:00 EDT, Height, 68.18, kg, 01/15/23 10:48:00 EDT, Dry Weight Start Date: 03/27/23 Status: Ordered cholecalciferol 1000 intl units oral tablet 1 tablet = 1,000 International_Units, By Mouth, Daily, # 30 tablet, 11 Refills, Maintenance, 02/18/23 7:13:00 EDT, Tablet, [facility], 164, cm, 01/19/23 15:23:00 EDT, Height, 68.18, kg, 01/15/23 10:48:00 EDT, Dry Weight Start Date: 02/18/23 Status: Ordered Descovy 200 mg-25 mg oral tablet 1 tablet, By Mouth, Daily, # 30 tablet, 5 Refills, Maintenance, 03/27/23 10:14:00 EDT, Tablet, [facility], 1 tablet By Mouth Daily,x30 days, 164, cm, 01/19/23 15:23:00 EDT, Height, 68.18, kg, 01/15/23 10:48:00 EDT, Dry Weight Start Date: 03/27/23 Stop Date: 09/23/23 Status: Ordered dolutegravir 50 mg oral tablet 1 tablet = 50 mg, By Mouth, Daily, # 30 tablet, 5 Refills, Maintenance, 03/27/23 10:14:00 EDT, Tablet, [facility], 164, cm, 01/19/23 15:23:00 EDT, Height, 68.18, kg, 01/15/23 10:48:00 EDT, Dry Weight Start Date: 03/27/23 Stop Date: 09/23/23 Status: Ordered Flonase 50 mcg/inh nasal spray 1 sprays, Nares, Both, 2 times a day, # 16 Gm, 0 Refills, Maintenance, 01/01/23 9:25:00 EST, [place],[facility], Partial fill upon patient [...] bedtime, PRN for insomnia, # 60 tablet, 8 Refills, Maintenance,03/27/23 10:15:00 EDT, Tablet, [facility], 164, cm, 01/19/23 15:23:00 EDT, Height,68.18, kg, 01/15/23 10:48:00 EDT, Dry Weight Start Date: 03/27/23 Status: Ordered metFORMIN 500 mg oral tablet 1 tablet = 500 mg, By Mouth, Daily, # 30 tablet, 4 Refills, Maintenance, 12/18/22 16:42:00 EST, Tablet, [facility], 164, cm, 11/18/22 16:28:00 EST, Height, [...] Gm, 3 Refills, Maintenance, 01/19/23 14:48:00 EDT, [facility], For constipation: one capful by mouth, every day, tit... Start Date: 01/19/23 Status: Ordered mirtazapine 15 mg oral tablet 1 tablet = 15 mg, By Mouth, Daily at bedtime, # 90 tablet, 1 Refills, Maintenance, 01/16/23 11:22:00 EDT, Tablet, [facility], Partial fill upon patient request if the prescription isfor a schedule II opioid drug., 164, cm, 01/15/23 1... Start Date: 01/16/23 Stop Date: 02/15/23 Status: Ordered nicotine 14 mg/24 hr transdermal film, extended release 1 patch, Topically, Daily, # 30 patch, 1 Refills, Maintenance, 02/23/23 4:50:00 EDT, Patch, [facility], Partial fill upon patient request if the prescription is for a schedule II opioid drug., 1 patch Topically Daily, 164, cm, ... Start Date: 02/23/23 Status: Ordered omeprazole 40 mg oral enteric coated capsule 1 capsule = 40 mg, By Mouth, 2 times a day, # 60 capsule, 11 Refills, Maintenance, 03/27/23 10:16:00 EDT, EC Capsule, [facility], dose increased, 164, cm, 01/19/23 15:23:00 EDT, Height, 68.18, kg, 01/15/23 10:48:00 EDT, Dry Weight Start Date: 03/27/23 Stop Date: 03/21/24 Status: Ordered one cane one cane, See Instructions, # 1 Unknown, Refills 0, Tot. Refills 0, Maintenance, one cane to be dispensed to pt, 05/23/21 19:54:00 EDT, Supply Start Date: 05/23/21 Status: Ordered prazosin 2 mg oral capsule 1 capsule = 2 mg, By Mouth, Daily at bedtime, # 90 capsule, 1 Refills, Maintenance, 01/16/23 11:21:00 EDT, [facility], Partial fill upon patient [...] 01/15/23 11:16:00 EDT, Route to Pharmacy Electronically, [facility], Partial fill upon patient request... Start Date: 01/15/23 Stop Date: 06/14/23 Status: Ordered sertraline 50 mg oral tablet 1 tablet = 50 mg, By Mouth, Daily, # 90 tablet, 1 Refills, Maintenance, 01/01/23 17:40:00 EST, Tablet, [facility], Partial fill upon patient request if the prescription is for a schedule II opioid drug., 164, cm, 01/01/23 8:52:00 EST,... Start Date: 01/01/23 Status: Ordered topiramate 50 mg oral tablet 1 tablet = 50 mg, By Mouth, 2 times a day, # 60 tablet, 7 Refills, Maintenance, 01/15/23 11:16:00 EDT, Tablet, [facility], 164, cm, 01/15/23 10:48:00 EDT, Height, 68.18, kg, 01/15/2310:48:00 EDT, Dry Weight Start Date: 01/15/23 Stop Date: 09/12/23 Status: Ordered Ventolin HFA 108 mcg/inh inhalation aerosol with adapter 2 puffs, Inhalation, Every 4 hours, PRN for wheezing, # 2 each, 5 Refills, Maintenance, 01/15/23 11:10:00 EDT, Aerosol, [facility], 164, cm, 01/15/23 10:48:00 EDT, Height, [...] use Confirmed Active Opiate addiction Confirmed Active *[phone] Patient Assistant Marcella Youssefrene Confirmed Active Breast cancer screening Confirmed Active Polysubstance abuse Confirmed Active PTSD (post-traumatic stress disorder) Confirmed Active Social History Social History Type Response Smoking Status 10 or more cigarette s (1/2 pack or more)/day in last 30 days; Other: pack a day; entered on: 11/18/22 Sex Patient Care team information Care Team Personnel Name: Too MARINO, Raina Donahue Position: [facility] Associate Professional Member Role: Primary Care Nurse Address: Address: [address] [place] [id number]- Name: Joss Augustine MD Position: [facility] Physician - Primary Care Member Role: PCP Address: Address: [address] [place] [id number]- Name: Radha Murillo RN Position: [facility] Manager House Member Role: Primary Care Nurse Care Team Related Persons Name: SARWAT PEARL Address: [address] [place] [address] Name: CRYSTAL PEARL Address: [address] [place] [address] Name: DARRICK RENEE
--- OUTSIDE RECORDS SUMMARY | 2023-05-22 15:33 | XMS_ITS | Continuity of Care Document ---
Author Name Unknown Organization [facility] Address [address] [place] [address]- Care Team Providers Care Steam Gigger Name Role Phone Joss Augustine MD Primary Care Physician [place] [facility] [place] [id number] Date(s): 03/05/21 - 04/04/21 [facility] De [address] [address]- Attending Physician: Mike Nuñez Admitting Physician: Mike [...] tablet, 11 Refills, Maintenance, 02/25/21 10:33:00 EDT, [facility], 163, cm, 07/23/20 13:59:00 EDT, Height, 80.45, kg, 07/19/20 11:52:00 EDT, Dry Weight Start Date: 02/25/21 Status: Ordered cholecalciferol 1000 intl units oral tablet 1 tablet = 1,000 International_Units, By Mouth, Daily, # 30 tablet, 11 Refills, Maintenance, 07/23/20 17:03:00 EDT, Tablet, [facility] [id number] [facility] 163, cm, 07/23/20 13:59:00 EDT, Height, 80.45, kg, 07/19/20 11:52:00 EDT, Dry Weight Start Date: 07/23/20 Status: Ordered Descovy 200 mg-25 mg oral tablet 1 tablet, By Mouth, Daily, # 30 tablet, 5 Refills, Maintenance, 02/25/21 10:37:00 EDT, Tablet, [facility], 1 tablet By Mouth Daily,x30 days, 163, cm, 07/23/20 13:59:00 EDT, Height, 80.45, kg, 07/19/20 11:52:00 EDT, Dry Weight Start Date: 02/25/21 Stop Date: 08/24/21 Status: Ordered dolutegravir 50 mg oral tablet 1 tablet = 50 mg, By Mouth, Daily, # 30 tablet, 5 Refills, Maintenance, 02/25/21 10:37:00 EDT, Tablet, [facility], 163, cm, 07/23/20 13:59:00 EDT, [...] 01/28/21 17:12:00 EDT, Route to Pharmacy Electronically, [facility], 163, cm, 07/23/20 13:59:00 EDT, Height, 80.45, kg, 07/19/20 11:52:... Start Date: 01/28/21 Status: Ordered melatonin 5 mg oral tablet 1 tablet = 5 mg, By Mouth, Daily at bedtime, PRN for insomnia, # 60 tablet, 11 Refills, Maintenance, 05/14/20 14:54:00 EDT, Tablet, [facility], 163, cm, 12/30/19 8:46:00 EST, Height,81.1, kg, 12/23/19 11:40:00 EST, Dry Weight Start Date: 05/14/20 Status: Ordered metFORMIN 500 mg oral tablet 1 tablet = 500 mg, By Mouth, Daily, # 30 tablet, 11 Refills, Maintenance, 03/26/21 14:38:00 EDT, Tablet, [facility], 163, cm, 07/23/20 13:59:00 EDT, [...] 15:14:00 EST, 12/04/20 15:13:00 EST, REC Powder, [facility], Partial fill upon patient request if the prescription is for a schedule II opi... Start Date: 12/04/20 Stop Date: 09/05/21 Status: Ordered omeprazole 40 mg oral enteric coated capsule 1 capsule = 40 mg, By Mouth, 2 times a day, # 60 capsule, 11 Refills, Maintenance, 02/25/21 10:36:00 EDT, EC Capsule, [facility], dose increased, 163, cm, 07/23/20 [...] 3 Refills, Maintenance, 12/26/20 12:47:00 EST, Aerosol, [facility], 163, cm, 07/23/20 13:59:00 EDT, [...] Active Heroin use(Confirmed) Active Opiate addiction(Confirmed) Active *[id number] Care Partn rell Eagle(Confirmed) Active Polysubstance abuse(Confirmed) Active PTSD (post-traumatic stress disorder)(Confirmed) Active Social History Social History Type Response Smoking Status 10 or more cigarette s (1/2 pack or more)/day in last 30 days; Tobacco user in household: Yes entered on: 07/19/20 Sex
--- OUTSIDE RECORDS SUMMARY | 2023-05-22 15:33 | XMS_ITS | Continuity of Care Document ---
Author Name Unknown Organization [facility] Address [address] [place] [address]- Care Team Providers Care Television Script Writer Name Role Phone Joss Augustine MD Primary Care Physician Encounter [facility] [place] ACCT R [id number] Date(s): 01/25/21 - 02/24/21 [facility] De [address] [address]- Attending Physician: Mike Nuñez Admitting Physician: Mike [...] tablet, 11 Refills, Maintenance, 02/13/20 12:00:00 EDT, [facility], 163, cm, 12/30/19 8:46:00 EST, Height, 81.1, kg, 12/23/19 11:40:00 EST, Dry Weight Start Date: 02/13/20 Status: Ordered cholecalciferol 1000 intl units oral tablet 1 tablet = 1,000 International_Units, By Mouth, Daily, # 30 tablet, 11 Refills, Maintenance, 07/23/20 17:03:00 EDT, Tablet, [facility] [id number] [facility] 163, cm, 07/23/20 13:59:00 EDT, Height, 80.45, kg, 07/19/20 11:52:00 EDT, Dry Weight Start Date: 07/23/20 Status: Ordered Descovy 200 mg-25 mg oral tablet 1 tablet, By Mouth, Daily, # 30 tablet, 5 Refills, Maintenance, 08/20/20 16:10:00 EDT, Tablet, [facility], 1 tablet By Mouth Daily,x30 days, 163, cm, 07/23/20 13:59:00 EDT, Height, 80.45, kg, 07/19/20 11:52:00 EDT, Dry Weight Start Date: 08/20/20 Stop Date: 02/16/21 Status: Ordered dolutegravir 50 mg oral tablet 1 tablet = 50 mg, By Mouth, Daily, # 30 tablet, 5 Refills, Maintenance, 06/19/20 11:52:00 EDT, Tablet, [facility], 163, cm, 12/30/19 8:46:00 [...] 01/28/21 17:12:00 EDT, Route to Pharmacy Electronically, [facility], 163, cm, 07/23/20 13:59:00 EDT, Height, 80.45, kg, 07/19/20 11:52:... Start Date: 01/28/21 Status: Ordered melatonin 5 mg oral tablet 1 tablet = 5 mg, By Mouth, Daily at bedtime, PRN for insomnia, # 60 tablet, 11 Refills, Maintenance, 05/14/20 14:54:00 EDT, Tablet, [facility], 163, cm, 12/30/19 8:46:00 EST, Height,81.1, kg, 12/23/19 11:40:00 EST, Dry Weight Start Date: 05/14/20 Status: Ordered metFORMIN 500 mg oral tablet 1 tablet = 500 mg, By Mouth, Daily, # 30 tablet, 11 Refills, Maintenance, 03/13/20 17:35:00 EDT, Tablet, [facility], 163, cm, 12/30/19 8:46:00 [...] 15:14:00 EST, 12/04/20 15:13:00 EST, REC Powder, [facility], Partial fill upon patient request if the prescription is for a schedule II opi... Start Date: 12/04/20 Stop Date: 09/05/21 Status: Ordered omeprazole 40 mg oral enteric coated capsule 1 capsule = 40 mg, By Mouth, 2 times a day, # 60 capsule, 11 Refills, Maintenance, 02/13/20 12:00:00 EDT, EC Capsule, [facility], dose increased, 163, cm, 12/30/19 8:46:00 [...] 11 Refills, Maintenance, 05/14/20 14:54:00 EDT, Tablet, [facility], 163, cm, 12/30/19 8:46:00 EST, Height, 81.1, kg, 12/23/19 11:40:00 EST, Dry Weight Start Date: 05/14/20 Stop Date: 05/09/21 Status: Ordered Ventolin HFA 108 mcg/inh inhalation aerosol with adapter 2 puffs, Inhalation, Every 4 hours, PRN for wheezing, # 3 each, 3 Refills, Maintenance, 12/26/20 12:47:00 EST, Aerosol, [facility], 163, cm, 07/23/20 13:59:00 [...] Active Heroin use(Confirmed) Active Opiate addiction(Confirmed) Active *[id number] Care Partn rell Eagle(Confirmed) Active Polysubstance abuse(Confirmed) Active PTSD (post-traumatic stress disorder)(Confirmed) Active Social History Social History Type Response Smoking Status 10 or more cigarette s (1/2 pack or more)/day in last 30 days; Tobacco user in household: Yes entered on: 07/19/20 Sex
--- OUTSIDE RECORDS SUMMARY | 2023-05-22 15:33 | XMS_ITS | Continuity of Care Document ---
Author Name Unknown Organization [facility] Address [address] [place] [address]- Care Team Providers Care Electrical Engineering Professor Name Role Phone Joss Augustine MD Primary Care Physician [place] [facility] [facility] [place]18[place] - 05/02/[address] [address]- [facility] Attending Physician: Joss Augustine MD Admitting Physician: [...] tablet, 11 Refills, Maintenance, 02/13/20 12:00:00 EDT, [facility], 163, cm, 12/30/19 [...] 5 Refills, Maintenance, 02/13/20 12:00:00 EDT, Tablet, [facility], 1 tablet By Mouth Daily,x30 days, 163, cm, 12/30/19 8:46:00 EST, Height, 81.1, kg, 12/23/19 11:40:00 EST, Dry Weight Start Date: 02/13/20 Stop Date: 08/11/20 Status: Ordered dolutegravir 50 mg oral tablet 1 tablet = 50 mg, By Mouth, Daily, # 30 tablet, 5 Refills, Maintenance, 11/28/19 12:15:00 EST, Tablet, [facility], 170, cm, 11/07/19 9:01:00 [...] 03/13/20 17:36:00 EDT, Route to Pharmacy Electronically, [facility], 163, cm, 12/30/19 [...] 11 Refills, Maintenance, 03/13/20 17:35:00 EDT, Tablet, [facility], 163, cm, 12/30/19 8:46:00 [...] Refills, Maintenance, 02/13/20 12:00:00 EDT, EC Capsule, [facility], dose increased, 163, [...] 5 Refills, Maintenance, 10/31/19 17:43:00 EST, Tablet, [facility], 170, cm, 10/17/19 16:41:00 EST, Height, 90, kg, 10/06/19 0:00:00 EST, Dry Weight Start Date: 10/31/19 Stop Date: 04/28/20 Status: Ordered Ventolin HFA 108 mcg/inh inhalation aerosol with adapter 2 puffs, Inhalation, Every 4 hours, PRN for wheezing, # 3 each, 3 Refills, Maintenance, 04/21/20 8:52:00 EDT, Aerosol, [facility], 163, cm, 12/30/19 8:46:00 [...] Active Heroin use(Confirmed) Active Opiate addiction(Confirmed) Active *[id number]- [facility] Part ner Shahida Montelongo(Confirmed) Active Polysubstance abuse(Confirmed) Active PTSD (post-traumatic stress disorder)(Confirmed) Active Social History Social History Type Response Smoking Status 10 or more cigarette s (1/2 pack or more)/day in last 30 days entered on: 11/07/19 Sex
--- OUTSIDE RECORDS SUMMARY | 2023-05-22 15:33 | XMS_ITS | Continuity of Care Document ---
Author Name Unknown Organization [facility] Address [address] [place] [id number]- Care Team Providers Care Private Client Advisor Name Role Phone Fawn REAL, Joss Martin Primary Care Physician Encounter [facility] [place] Date(s): 01/24/21 - 02/24/21 [facility] [address] [address]- Attending Physician: Esme Campos NP Admitting Physician: Esme Campos NP Allergies, Adverse Reactions, Alerts Substance Reaction Severity [...] tablet, 11 Refills, Maintenance, 02/13/20 12:00:00 EDT, [facility], 163, cm, 12/30/19 8:46:00 EST, Height, 81.1, kg, 12/23/19 11:40:00 EST, Dry Weight Start Date: 02/13/20 Status: Ordered cholecalciferol 1000 intl units oral tablet 1 tablet = 1,000 International_Units, By Mouth, Daily, # 30 tablet, 11 Refills, Maintenance, 07/23/20 17:03:00 EDT, [facility] [id number] [facility], cm, 07/23/20 13:59:00 EDT, Height, 80.45, kg, 07/19/20 11:52:00 EDT, Dry Weight Start Date: 07/23/20 Status: Ordered Descovy 200 mg-25 mg oral tablet 1 tablet, By Mouth, Daily, # 30 tablet, 5 Refills, Maintenance, 08/20/20 16:10:00 EDT, Tablet, [facility], 1 tablet By Mouth Daily,x30 days, 163, cm, 07/23/20 13:59:00 EDT, Height, 80.45, kg, 07/19/20 11:52:00 EDT, Dry Weight Start Date: 08/20/20 Stop Date: 02/16/21 Status: Ordered dolutegravir 50 mg oral tablet 1 tablet = 50 mg, By Mouth, Daily, # 30 tablet, 5 Refills, Maintenance, 06/19/20 11:52:00 EDT, Tablet, [facility], 163, cm, 12/30/19 8:46:00 EST, [...] 01/28/21 17:12:00 EDT, Route to Pharmacy Electronically, [facility], 163, cm, 07/23/20 13:59:00 EDT, Height, 80.45, kg, 07/19/20 11:52:... Start Date: 01/28/21 Status: Ordered melatonin 5 mg oral tablet 1 tablet = 5 mg, By Mouth, Daily at bedtime, PRN for insomnia, # 60 tablet, 11 Refills, Maintenance, 05/14/20 14:54:00 EDT, Tablet, [facility], 163, cm, 12/30/19 8:46:00 EST, Height,81.1, kg, 12/23/19 11:40:00 EST, Dry Weight Start Date: 05/14/20 Status: Ordered metFORMIN 500 mg oral tablet 1 tablet = 500 mg, By Mouth, Daily, # 30 tablet, 11 Refills, Maintenance, 03/13/20 17:35:00 EDT, Tablet, [facility], 163, cm, 12/30/19 8:46:00 [...] 15:14:00 EST, 12/04/20 15:13:00 EST, REC Powder, [facility], Partial fill upon patient request if the prescription is for a schedule II opi... Start Date: 12/04/20 Stop Date: 09/05/21 Status: Ordered omeprazole 40 mg oral enteric coated capsule 1 capsule = 40 mg, By Mouth, 2 times a day, # 60 capsule, 11 Refills, Maintenance, 02/13/20 12:00:00 EDT, EC Capsule, [facility], dose increased, 163, cm, 12/30/19 [...] 11 Refills, Maintenance, 05/14/20 14:54:00 EDT, Tablet, [facility], 163, cm, 12/30/19 8:46:00 EST, Height, 81.1, kg, 12/23/19 11:40:00 EST, Dry Weight Start Date: 05/14/20 Stop Date: 05/09/21 Status: Ordered Ventolin HFA 108 mcg/inh inhalation aerosol with adapter 2 puffs, Inhalation, Every 4 hours, PRN for wheezing, # 3 each, 3 Refills, Maintenance, 12/26/20 12:47:00 EST, Aerosol, [facility], 163, cm, 07/23/20 13:59:00 EDT, [...] Active Heroin use(Confirmed) Active Opiate addiction(Confirmed) Active *[id number] Care Partn rell Eagle(Confirmed) Active Polysubstance abuse(Confirmed) Active PTSD (post-traumatic stress disorder)(Confirmed) Active Social History Social History Type Response Smoking Status 10 or more cigarette s (1/2 pack or more)/day in last 30 days; Tobacco user in household: Yes entered on: 07/19/20 Sex
--- OUTSIDE RECORDS SUMMARY | 2023-05-22 15:33 | XMS_ITS | Continuity of Care Document ---
Author Name Unknown Organization [facility] Address [address] [place] [address]- Care Team Providers Care Fiberglass Model Maker Name Role Phone Joss Augustine MD Primary Care Physician Encounter [facility] Date(s): 12/06/20 - 01/05/21 [facility] [address] [address]- Attending Physician: Mike Nuñez Admitting Physician: Mike [...] tablet, 11 Refills, Maintenance, 02/13/20 12:00:00 EDT, [facility], 163, cm, 12/30/19 8:46:00 EST, Height, 81.1, kg, 12/23/19 11:40:00 EST, Dry Weight Start Date: 02/13/20 Status: Ordered cholecalciferol 1000 intl units oral tablet 1 tablet = 1,000 International_Units, By Mouth, Daily, # 30 tablet, 11 Refills, Maintenance, 07/23/20 17:03:00 EDT, Tablet, [place] [id number] [facility], cm, 07/23/20 13:59:00 EDT, Height, 80.45, kg, 07/19/20 11:52:00 EDT, Dry Weight Start Date: 07/23/20 Status: Ordered Descovy 200 mg-25 mg oral tablet 1 tablet, By Mouth, Daily, # 30 tablet, 5 Refills, Maintenance, 08/20/20 16:10:00 EDT, Tablet, [facility], 1 tablet By Mouth Daily,x30 days, 163, cm, 07/23/20 13:59:00 EDT, Height, 80.45, kg, 07/19/20 11:52:00 EDT, Dry Weight Start Date: 08/20/20 Stop Date: 02/16/21 Status: Ordered dolutegravir 50 mg oral tablet 1 tablet = 50 mg, By Mouth, Daily, # 30 tablet, 5 Refills, Maintenance, 06/19/20 11:52:00 EDT, Tablet, [facility], 163, cm, 12/30/19 8:46:00 [...] 17:04:00 EDT, Route to Pharmacy Electronically, Trish Obrien ([facility]27), 163, cm, 07/23/20 13:59:00 EDT, Height, 80.45, kg, 07/19/20 1... Start Date: 07/23/20 Status: Ordered melatonin 5 mg oral tablet 1 tablet = 5 mg, By Mouth, Daily at bedtime, PRN for insomnia, # 60 tablet, 11 Refills, Maintenance, 05/14/20 14:54:00 EDT, Tablet, [facility], 163, cm, 12/30/19 8:46:00 EST, Height,81.1, kg, 12/23/19 11:40:00 EST, Dry Weight Start Date: 05/14/20 Status: Ordered metFORMIN 500 mg oral tablet 1 tablet = 500 mg, By Mouth, Daily, # 30 tablet, 11 Refills, Maintenance, 03/13/20 17:35:00 EDT, Tablet, [facility], 163, cm, 12/30/19 8:46:00 [...] 15:14:00 EST, 12/04/20 15:13:00 EST, REC Powder, [facility], Partial fill upon patient request if the prescription is for a schedule II opi... Start Date: 12/04/20 Stop Date: 09/05/21 Status: Ordered omeprazole 40 mg oral enteric coated capsule 1 capsule = 40 mg, By Mouth, 2 times a day, # 60 capsule, 11 Refills, Maintenance, 02/13/20 12:00:00 EDT, EC Capsule, [facility], dose increased, 163, cm, 12/30/19 [...] 11 Refills, Maintenance, 05/14/20 14:54:00 EDT, Tablet, [facility], 163, cm, 12/30/19 8:46:00 EST, Height, 81.1, kg, 12/23/19 11:40:00 EST, Dry Weight Start Date: 05/14/20 Stop Date: 05/09/21 Status: Ordered Ventolin HFA 108 mcg/inh inhalation aerosol with adapter 2 puffs, Inhalation, Every 4 hours, PRN for wheezing, # 3 each, 3 Refills, Maintenance, 12/26/20 12:47:00 EST, Aerosol, [facility], 163, cm, 07/23/20 13:59:00 [...] Active Heroin use(Confirmed) Active Opiate addiction(Confirmed) Active *[id number] Care Partn rell Eagle(Confirmed) Active Polysubstance abuse(Confirmed) Active PTSD (post-traumatic stress disorder)(Confirmed) Active Social History Social History Type Response Smoking Status 10 or more cigarette s (1/2 pack or more)/day in last 30 days; Tobacco user in household: Yes entered on: 07/19/20 Sex
--- OUTSIDE RECORDS SUMMARY | 2023-05-22 15:33 | XMS_ITS | Continuity of Care Document ---
Author Name Unknown Organization [facility] Address [address] [facility], [address] [place] [address]- Care Team Providers Care Fiberline Supervisor Name Role Phone Jsos Augustine MD Primary Care Physician Encounter 02/24/20 - 05/12/20 [facility] [address], [facility] [address] [place] [address]- [phone] Attending Physician: Joss Augustine MD Admitting Physician: [...] tablet, 11 Refills, Maintenance, 02/13/20 12:00:00 EDT, [facility], 163, cm, 12/30/19 8:46:00 [...] 5 Refills, Maintenance, 02/13/20 12:00:00 EDT, Tablet, [facility], 1 tablet By Mouth Daily,x30 days, 163, cm, 12/30/19 8:46:00 EST, Height, 81.1, kg, 12/23/19 11:40:00 EST, Dry Weight Start Date: 02/13/20 Stop Date: 08/11/20 Status: Ordered dolutegravir 50 mg oral tablet 1 tablet = 50 mg, By Mouth, Daily, # 30 tablet, 5 Refills, Maintenance, 11/28/19 12:15:00 EST, Tablet, [facility], 170, cm, 11/07/19 9:01:00 EST, [...] 03/13/20 17:36:00 EDT, Route to Pharmacy Electronically, [facility], 163, cm, 12/30/19 8:46:00 [...] 11 Refills, Maintenance, 03/13/20 17:35:00 EDT, Tablet, [facility], 163, cm, 12/30/19 8:46:00 EST, [...] Refills, Maintenance, 02/13/20 12:00:00 EDT, EC Capsule, [facility], dose increased, 163, cm, [...] 5 Refills, Maintenance, 10/31/19 17:43:00 EST, Tablet, [facility], 170, cm, 10/17/19 16:41:00 EST, Height, 90, kg, 10/06/19 0:00:00 EST, Dry Weight Start Date: 10/31/19 Stop Date: 04/28/20 Status: Ordered Ventolin HFA 108 mcg/inh inhalation aerosol with adapter 2 puffs, Inhalation, Every 4 hours, PRN for wheezing, # 3 each, 3 Refills, Maintenance, 04/21/20 8:52:00 EDT, Aerosol, [facility], 163, cm, 12/30/19 8:46:00 EST, [...] Active Heroin use(Confirmed) Active Opiate addiction(Confirmed) Active *[id number]- [facility] Part ner Shahida Montelongo(Confirmed) Active Polysubstance abuse(Confirmed) Active PTSD (post-traumatic stress disorder)(Confirmed) Active Social History Social History Type Response Smoking Status 10 or more cigarette s (1/2 pack or more)/day in last 30 days entered on: 11/07/19 Sex
--- OUTSIDE RECORDS SUMMARY | 2023-05-22 15:33 | XMS_ITS | Continuity of Care Document ---
Author Name Unknown Organization [facility] Address Unknown Care Team Providers Care Sales Systems Engineer Name Role Phone Joss Augustine MD Primary Care Physician Encounter [facility] [place] Date(s): 09/02/21 - 10/03/21 [facility] Attending Physician: Joss Augustine MD [...] tablet, 11 Refills, Maintenance, 02/25/21 10:33:00 EDT, [facility], 163, cm, 07/23/20 13:59:00 EDT, Height, 80.45, kg, 07/19/20 11:52:00 EDT, Dry Weight Start Date: 02/25/21 Status: Ordered cholecalciferol 1000 intl units oral tablet 1 tablet = 1,000 International_Units, By Mouth, Daily, # 30 tablet, 11 Refills, Maintenance, 08/29/21 10:17:00 EDT, Tablet, [facility], 164, cm, 05/23/21 15:48:00 EDT, Height, 73, kg, 05/23/21 15:48:00 EDT, Dry Weight Start Date: 08/29/21 Status: Ordered Descovy 200 mg-25 mg oral tablet 1 tablet, By Mouth, Daily, # 30 tablet, 2 Refills, Maintenance, 09/24/21 6:24:00 EST, Tablet, [facility], 1 tablet By Mouth Daily,x30 days, 164, cm, 05/23/21 15:48:00 EDT, Height, 73, kg, 05/23/21 15:48:00 EDT, Dry Weight Start Date: 09/24/21 Stop Date: 12/23/21 Status: Ordered dolutegravir 50 mg oral tablet 1 tablet = 50 mg, By Mouth, Daily, # 30 tablet, 2 Refills, Maintenance, 09/24/21 6:24:00 EST, Tablet, [facility], 164, cm, 05/23/21 15:48:00 [...] 07/16/21 7:01:00 EDT, Route to Pharmacy Electronically, [facility], 164, cm, 05/23/21 15:48:00 EDT, Height, 73, kg, 05/23/21 15:48:00 E... Start Date: 07/16/21 Status: Ordered melatonin 5 mg oral tablet 1 tablet = 5 mg, By Mouth, Daily at bedtime, PRN for insomnia, # 60 tablet, 11 Refills, Maintenance, 05/16/21 3:02:00 EDT, Tablet, [facility], 163, cm, 07/23/20 13:59:00 EDT, Height,80.45, kg, 07/19/20 11:52:00 EDT, Dry Weight Start Date: 05/16/21 Status: Ordered metFORMIN 500 mg oral tablet 1 tablet = 500 mg, By Mouth, Daily, # 30 tablet, 11 Refills, Maintenance, 03/26/21 14:38:00 EDT, Tablet, [facility], 163, cm, 07/23/20 13:59:00 [...] Refills, Maintenance, 02/25/21 10:36:00 EDT, EC Capsule, [facility], dose increased, 163, cm, [...] 11 Refills, Maintenance, 05/16/21 3:02:00 EDT, Tablet, [facility], 163, cm, 07/23/20 13:59:00 EDT, Height, 80.45, kg, 07/19/2011:52:00 EDT, Dry Weight Start Date: 05/16/21 Stop Date: 05/11/22 Status: Ordered Ventolin HFA 108 mcg/inh inhalation aerosol with adapter 2 puffs, Inhalation, Every 4 hours, PRN for wheezing, # 2 each, 5 Refills, Maintenance, 05/20/21 17:54:00 EDT, Aerosol, [facility], 163, cm, 07/23/20 13:59:00 [...] Active Heroin use(Confirmed) Active Opiate addiction(Confirmed) Active *[id number] Care Partn rell Eagle(Confirmed) Active Polysubstance abuse(Confirmed) Active PTSD (post-traumatic stress disorder)(Confirmed) Active Social History Social History Type Response Smoking Status Current every day radha guhtrie; Type: Cigarettes; Other: 1/2 pk a day; Tobacco use times per day: 8 CIGS A DAY; Started at age: 15; entered on: 05/24/18 Sex
--- OUTSIDE RECORDS SUMMARY | 2023-05-22 15:33 | XMS_ITS | Continuity of Care Document ---
Author Name Unknown Organization [facility] Address [address] [place] [address]- Care Team Providers Care Extruding Department Supervisor Name Role Phone Joss Augustine MD Primary Care Physician [place] [facility] [place] 10/05/19 - 11/16/19 [facility]/[address] [address]- [facility] Attending Physician: Romelia Wong MD Admitting Physician: [...] 10/17/19 17:05:00 EST, Route to Pharmacy Electronically, [facility], 170, cm, 10/17/19 16:41:00 EST, Height, 90, kg, 10/06/19 0:00:00 EST, Dry... Start Date: 10/17/19 Stop Date: 1/2/20 Status: Ordered melatonin 5 mg oral tablet [...] 300 mg, Subcutaneous Infusion, Every 28 days, [id number] [place]on Patient to continue 300 mg reassess in 2 months diagnosis: F11.2, # 1 Doses, 1 Refills, Maintenance, 09/27/19 17:03:20 EST Start Date: 09/27/19 Status: Ordered Suboxone 8 mg-2 mg sublingual film 2 each, Sublingual, Daily, [id number] [place]on dissolve under the tongue fill on/after 11/15/2019 FILM RECORDIST verified, # 14 film, 0 Refills, Maintenance, 11/15/19 9:34:00 EST, Dry Weight Start Date: 11/15/19 Stop Date: 11/22/19 Status: Ordered Suboxone 8 mg-2 mg sublingual film 2 each, Sublingual, Daily, [id number] Eagleson dissolve under the tongue fill on/after 10/17/2019 FILM RECORDIST verified, # 14 each, 0 Refills, Maintenance, 10/17/19 16:55:00 EST, [facility], 2 each Sublingual Daily,x7 days,Instr:[id number]... Start Date: 10/17/19 Stop Date: 10/24/19 Status: Ordered topiramate 50 mg oral tablet 1 tablet = 50 mg, By Mouth, 2 times a day, # 60 tablet, 5 Refills, Maintenance, 10/31/19 17:43:00 EST, Tablet, [facility], 170, cm, 10/17/19 16:41:00 EST, [...] Active Heroin use(Confirmed) Active Opiate addiction(Confirmed) Active *[id number]- [facility] Part ner Shahida Montelongo(Confirmed) Active PTSD (post-traumatic stress disorder)(Confirmed) Active Social History Social History Type Response Smoking Status 10 or more cigarette s (1/2 pack or more)/day in last 30 days entered on: 11/07/19 Sex
--- OUTSIDE RECORDS SUMMARY | 2023-05-22 15:33 | XMS_ITS | Continuity of Care Document ---
Author Name Unknown Organization [facility] Address [address] [place] [address]- Care Team Providers Care Director Mobile Media Solutions Name Role Phone Joss Augustine MD Primary Care Physician Encounter [facility] Date(s): 10/06/19 - 11/10/19 [facility]/[address] [address]- [facility] Attending Physician: Joss Augustine MD Admitting Physician: [...] 10/17/19 17:05:00 EST, Route to Pharmacy Electronically, [facility], 170, cm, 10/17/19 16:41:00 EST, Height, 90, [...] 300 mg, Subcutaneous Infusion, Every 28 days, [id number] [place]on Patient to continue 300 mg reassess in 2 months diagnosis: F11.2, # 1 Doses, 1 Refills, Maintenance, 09/27/19 17:03:20 EST Start Date: 09/27/19 Status: Ordered Suboxone 8 mg-2 mg sublingual film 2 each, Sublingual, Daily, [id number] [place]on dissolve under the tongue fill on/after 11/07/2019 LEHR CUTTER verified, # 16 film, 0 Refills, Maintenance, 11/07/19 9:40:00 EST, Dry Weight Start Date: 11/07/19 Stop Date: 11/15/19 Status: Ordered Suboxone 8 mg-2 mg sublingual film 2 each, Sublingual, Daily, [id number] Eagleson dissolve under the tongue fill on/after 10/17/2019 LEHR CUTTER verified, # 14 each, 0 Refills, Maintenance, 10/17/19 16:55:00 EST, [facility], 2 each Sublingual Daily,x7 days,Instr:[id number]... Start Date: 10/17/19 Stop Date: 10/24/19 Status: Ordered topiramate 50 mg oral tablet 1 tablet = 50 mg, By Mouth, 2 times a day, # 60 tablet, 5 Refills, Maintenance, 10/31/19 17:43:00 EST, Tablet, [facility], 170, cm, 10/17/19 16:41:00 EST, Height, 90, kg, 10/06/19 0:00:00 EST, Dry Weight Start Date: 10/31/19 Stop Date: 04/28/20 Status: Ordered topiramate 50 mg oral tablet 1 tablet = 50 mg, By Mouth, 2 times a day, for 30 days, # 60 tablet, 5 Refills, Hard Stop 11/13/19 17:43:22 EST, 05/17/19 17:43:22 EDT, Tablet, [facility] Start Date: 05/17/19 Stop Date: 11/13/19 Status: [...] Active Heroin use(Confirmed) Active Opiate addiction(Confirmed) Active *[id number]- [facility] Part ner Shahida Montelongo(Confirmed) Active PTSD (post-traumatic stress disorder)(Confirmed) Active Social History Social History Type Response Smoking Status 10 or more cigarette s (1/2 pack or more)/day in last 30 days entered on: 11/07/19 Sex
--- OUTSIDE RECORDS SUMMARY | 2023-05-22 15:33 | XMS_ITS | Continuity of Care Document ---
Author Name Unknown Organization [facility] Address Unknown Care Team Providers Care Shotblast Equipment Operator Name Role Phone Joss Augustine MD Primary Care Physician Encounter [facility] Date(s): 05/27/21 - 06/26/21 [facility] Attending Physician: Mike Nuñez Admitting Physician: AdmMike tracy Referring Physician: Admtr, [...] tablet, 11 Refills, Maintenance, 02/25/21 10:33:00 EDT, [facility], 163, cm, 07/23/20 13:59:00 EDT, Height, 80.45, kg, 07/19/20 11:52:00 EDT, Dry Weight Start Date: 02/25/21 Status: Ordered cholecalciferol 1000 intl units oral tablet 1 tablet = 1,000 International_Units, By Mouth, Daily, # 30 tablet, 11 Refills, Maintenance, 07/23/20 17:03:00 EDT, Tablet, [place] [address] ([facility]), 163, cm, 07/23/20 13:59:00 EDT, Height, 80.45, kg, 07/19/20 11:52:00 EDT, Dry Weight Start Date: 07/23/20 Status: Ordered Descovy 200 mg-25 mg oral tablet 1 tablet, By Mouth, Daily, # 30 tablet, 5 Refills, Maintenance, 02/25/21 10:37:00 EDT, Tablet, [facility], 1 tablet By Mouth Daily,x30 days, 163, cm, 07/23/20 13:59:00 EDT, Height, 80.45, kg, 07/19/20 11:52:00 EDT, Dry Weight Start Date: 02/25/21 Stop Date: 08/24/21 Status: Ordered dolutegravir 50 mg oral tablet 1 tablet = 50 mg, By Mouth, Daily, # 30 tablet, 5 Refills, Maintenance, 02/25/21 10:37:00 EDT, Tablet, [facility], 163, cm, 07/23/20 13:59:00 [...] 01/28/21 17:12:00 EDT, Route to Pharmacy Electronically, [facility], 163, cm, 07/23/20 13:59:00 EDT, Height, 80.45, kg, 07/19/20 11:52:... Start Date: 01/28/21 Status: Ordered melatonin 5 mg oral tablet 1 tablet = 5 mg, By Mouth, Daily at bedtime, PRN for insomnia, # 60 tablet, 11 Refills, Maintenance, 05/16/21 3:02:00 EDT, Tablet, [facility], 163, cm, 07/23/20 13:59:00 EDT, Height,80.45, kg, 07/19/20 11:52:00 EDT, Dry Weight Start Date: 05/16/21 Status: Ordered metFORMIN 500 mg oral tablet 1 tablet = 500 mg, By Mouth, Daily, # 30 tablet, 11 Refills, Maintenance, 03/26/21 14:38:00 EDT, Tablet, [facility], 163, cm, 07/23/20 13:59:00 EDT, [...] 15:14:00 EST, 12/04/20 15:13:00 EST, REC Powder, [facility], Partial fill upon patient request if the prescription is for a schedule II opi... Start Date: 12/04/20 Stop Date: 09/05/21 Status: Ordered omeprazole 40 mg oral enteric coated capsule 1 capsule = 40 mg, By Mouth, 2 times a day, # 60 capsule, 11 Refills, Maintenance, 02/25/21 10:36:00 EDT, EC Capsule, [facility], dose increased, 163, cm, 07/23/20 [...] 11 Refills, Maintenance, 05/16/21 3:02:00 EDT, Tablet, [facility], 163, cm, 07/23/20 13:59:00 EDT, Height, 80.45, kg, 07/19/2011:52:00 EDT, Dry Weight Start Date: 05/16/21 Stop Date: 05/11/22 Status: Ordered Ventolin HFA 108 mcg/inh inhalation aerosol with adapter 2 puffs, Inhalation, Every 4 hours, PRN for wheezing, # 2 each, 5 Refills, Maintenance, 05/20/21 17:54:00 EDT, Aerosol, [facility], 163, cm, 07/23/20 13:59:00 [...] Active Heroin use(Confirmed) Active Opiate addiction(Confirmed) Active *[id number] Care Partn rell Eagle(Confirmed) Active Polysubstance abuse(Confirmed) Active PTSD (post-traumatic stress disorder)(Confirmed) Active Social History Social History Type Response Smoking Status Current every day sm oker; Type: Cigarettes; Other: 1/2 pk a day; Tobacco use times per day: 8 CIGS A DAY; Started at age: 15; entered on: 05/24/18 Sex
--- OUTSIDE RECORDS SUMMARY | 2023-05-22 15:33 | XMS_ITS | Continuity of Care Document ---
Author Name Unknown Organization [facility] Address [address] [place] [id number]- Care Team Providers Care Professor Of Environmental Science Name Role Phone Joss Augustine MD Primary Care Physician Encounter [facility] [place] [id number] Date(s): 09/11/20 - 10/11/20 [facility] [address]- Attending Physician: Mike Nuñez Admitting Physician: Mike [...] tablet, 11 Refills, Maintenance, 02/13/20 12:00:00 EDT, [facility], 163, cm, 12/30/19 8:46:00 EST, Height, 81.1, kg, 12/23/19 11:40:00 EST, Dry Weight Start Date: 02/13/20 Status: Ordered cholecalciferol 1000 intl units oral tablet 1 tablet = 1,000 International_Units, By Mouth, Daily, # 30 tablet, 11 Refills, Maintenance, 07/23/20 17:03:00 EDT, Tablet, [place] [id number] ([facility]), 163, cm, 07/23/20 13:59:00 EDT, Height, 80.45, kg, 07/19/20 11:52:00 EDT, Dry Weight Start Date: 07/23/20 Status: Ordered Descovy 200 mg-25 mg oral tablet 1 tablet, By Mouth, Daily, # 30 tablet, 5 Refills, Maintenance, 08/20/20 16:10:00 EDT, Tablet, [facility], 1 tablet By Mouth Daily,x30 days, 163, cm, 07/23/20 13:59:00 EDT, Height, 80.45, kg, 07/19/20 11:52:00 EDT, Dry Weight Start Date: 08/20/20 Stop Date: 02/16/21 Status: Ordered dolutegravir 50 mg oral tablet 1 tablet = 50 mg, By Mouth, Daily, # 30 tablet, 5 Refills, Maintenance, 06/19/20 11:52:00 EDT, Tablet, [facility], 163, cm, 12/30/19 8:46:00 EST, Height, [...] EDT, Route to Pharmacy Electronically, Trish [id number] ([facility] 827), 163, cm, 07/23/20 13:59:00 EDT, Height, 80.45, kg, 07/19/20 1... Start Date: 07/23/20 Status: Ordered melatonin 5 mg oral tablet 1 tablet = 5 mg, By Mouth, Daily at bedtime, PRN for insomnia, # 60 tablet, 11 Refills, Maintenance, 05/14/20 14:54:00 EDT, Tablet, [facility], 163, cm, 12/30/19 8:46:00 EST, Height,81.1, kg, 12/23/19 11:40:00 EST, Dry Weight Start Date: 05/14/20 Status: Ordered metFORMIN 500 mg oral tablet 1 tablet = 500 mg, By Mouth, Daily, # 30 tablet, 11 Refills, Maintenance, 03/13/20 17:35:00 EDT, Tablet, [facility], 163, cm, 12/30/19 8:46:00 [...] Refills, Maintenance, 02/13/20 12:00:00 EDT, EC Capsule, [facility], dose increased, 163, cm, [...] 11 Refills, Maintenance, 05/14/20 14:54:00 EDT, Tablet, [facility], 163, cm, 12/30/19 8:46:00 EST, Height, 81.1, kg, 12/23/19 11:40:00 EST, Dry Weight Start Date: 05/14/20 Stop Date: 05/09/21 Status: Ordered Ventolin HFA 108 mcg/inh inhalation aerosol with adapter 2 puffs, Inhalation, Every 4 hours, PRN for wheezing, # 3 each, 3 Refills, Maintenance, 04/21/20 8:52:00 EDT, Aerosol, [facility], 163, cm, 12/30/19 8:46:00 EST, Height, [...] Active Heroin use(Confirmed) Active Opiate addiction(Confirmed) Active *[id number] Care Partn rell Eagle(Confirmed) Active Polysubstance abuse(Confirmed) Active PTSD (post-traumatic stress disorder)(Confirmed) Active Social History Social History Type Response Smoking Status 10 or more cigarette s (1/2 pack or more)/day in last 30 days; Tobacco user in household: Yes entered on: 07/19/20 Sex
--- OUTSIDE RECORDS SUMMARY | 2023-05-22 15:33 | XMS_ITS | Continuity of Care Document ---
Author Name Unknown Organization [facility] Address Unknown Care Team Providers Care Sales And Customer Relations Rep Name Role Phone Joss Augustine MD Primary Care Physician Encounter [facility] [place] Date(s): 08/30/21 - 09/29/21 [facility] Allergies, Adverse Reactions, Alerts Substance [...] tablet, 11 Refills, Maintenance, 02/25/21 10:33:00 EDT, [facility], 163, cm, 07/23/20 13:59:00 EDT, Height, 80.45, kg, 07/19/20 11:52:00 EDT, Dry Weight Start Date: 02/25/21 Status: Ordered cholecalciferol 1000 intl units oral tablet 1 tablet = 1,000 International_Units, By Mouth, Daily, # 30 tablet, 11 Refills, Maintenance, 08/29/21 10:17:00 EDT, Tablet, [facility], 164, cm, 05/23/21 15:48:00 EDT, Height, 73, kg, 05/23/21 15:48:00 EDT, Dry Weight Start Date: 08/29/21 Status: Ordered Descovy 200 mg-25 mg oral tablet 1 tablet, By Mouth, Daily, # 30 tablet, 2 Refills, Maintenance, 09/24/21 6:24:00 EST, Tablet, [facility], 1 tablet By Mouth Daily,x30 days, 164, cm, 05/23/21 15:48:00 EDT, Height, 73, kg, 05/23/21 15:48:00 EDT, Dry Weight Start Date: 09/24/21 Stop Date: 12/23/21 Status: Ordered dolutegravir 50 mg oral tablet 1 tablet = 50 mg, By Mouth, Daily, # 30 tablet, 2 Refills, Maintenance, 09/24/21 6:24:00 EST, Tablet, [facility], 164, cm, 05/23/21 15:48:00 [...] 07/16/21 7:01:00 EDT, Route to Pharmacy Electronically, [facility], 164, cm, 05/23/21 15:48:00 EDT, Height, 73, kg, 05/23/21 15:48:00 E... Start Date: 07/16/21 Status: Ordered melatonin 5 mg oral tablet 1 tablet = 5 mg, By Mouth, Daily at bedtime, PRN for insomnia, # 60 tablet, 11 Refills, Maintenance, 05/16/21 3:02:00 EDT, Tablet, [facility], 163, cm, 07/23/20 13:59:00 EDT, Height,80.45, kg, 07/19/20 11:52:00 EDT, Dry Weight Start Date: 05/16/21 Status: Ordered metFORMIN 500 mg oral tablet 1 tablet = 500 mg, By Mouth, Daily, # 30 tablet, 11 Refills, Maintenance, 03/26/21 14:38:00 EDT, Tablet, [facility], 163, cm, 07/23/20 13:59:00 EDT, [...] Refills, Maintenance, 02/25/21 10:36:00 EDT, EC Capsule, [facility], dose increased, 163, cm, 07/23/20 [...] 11 Refills, Maintenance, 05/16/21 3:02:00 EDT, Tablet, [facility], 163, cm, 07/23/20 13:59:00 EDT, Height, 80.45, kg, 07/19/2011:52:00 EDT, Dry Weight Start Date: 05/16/21 Stop Date: 05/11/22 Status: Ordered Ventolin HFA 108 mcg/inh inhalation aerosol with adapter 2 puffs, Inhalation, Every 4 hours, PRN for wheezing, # 2 each, 5 Refills, Maintenance, 05/20/21 17:54:00 EDT, Aerosol, [facility], 163, cm, 07/23/20 13:59:00 EDT, [...] Active Heroin use(Confirmed) Active Opiate addiction(Confirmed) Active *[id number] Care Partn rell Eagle(Confirmed) Active Polysubstance abuse(Confirmed) Active PTSD (post-traumatic stress disorder)(Confirmed) Active Social History Social History Type Response Smoking Status Current every day radha guthrie; Type: Cigarettes; Other: 1/2 pk a day; Tobacco use times per day: 8 CIGS A DAY; Started at age: 15; entered on: 05/24/18 Sex
--- OUTSIDE RECORDS SUMMARY | 2023-05-22 15:34 | XMS_ITS | Continuity of Care Document ---
Author Name Unknown Organization [facility] Address Unknown Care Team Providers Care Stull Hewer Name Role Phone Joss Augustine MD Primary Care Physician Encounter [facility] [place] Date(s): 01/06/22 - 02/05/22 [facility] Attending Physician: Mike Nuñez Admitting Physician: [...] tablet, 11 Refills, Maintenance, 02/25/21 10:33:00 EDT, [facility], 163, cm, 07/23/20 13:59:00 EDT, Height, 80.45, kg, 07/19/20 11:52:00 EDT, Dry Weight Start Date: 02/25/21 Status: Ordered cholecalciferol 1000 intl units oral tablet 1 tablet = 1,000 International_Units, By Mouth, Daily, # 30 tablet, 11 Refills, Maintenance, 08/29/21 10:17:00 EDT, Tablet, [facility], 164, cm, 05/23/21 15:48:00 EDT, Height, 73, kg, 05/23/21 15:48:00 EDT, Dry Weight Start Date: 08/29/21 Status: Ordered Descovy 200 mg-25 mg oral tablet 1 tablet, By Mouth, Daily, # 30 tablet, 2 Refills, Maintenance, 01/16/22 15:18:00 EDT, Tablet, [facility], 1 tablet By Mouth Daily,x30 days, 164, cm, 05/23/21 15:48:00 EDT, Height, 73, kg, 05/23/21 15:48:00 EDT, Dry Weight Start Date: 01/16/22 Stop Date: 04/16/22 Status: Ordered dolutegravir 50 mg oral tablet 1 tablet = 50 mg, By Mouth, Daily, # 30 tablet, 2 Refills, Maintenance, 01/16/22 15:18:00 EDT, Tablet, [facility], 164, cm, 05/23/21 15:48:00 EDT, Height, 73, kg, 05/23/21 15:48:00 EDT, Dry Weight Start Date: 01/16/22 Stop Date: 04/16/22 Status: Ordered Freestyle Lite Lancets See Instructions, [...] 07/16/21 7:01:00 EDT, Route to Pharmacy Electronically, [facility], 164, cm, 05/23/21 15:48:00 EDT, Height, 73, kg, 05/23/21 15:48:00 E... Start Date: 07/16/21 Status: Ordered melatonin 5 mg oral tablet 1 tablet = 5 mg, By Mouth, Daily at bedtime, PRN for insomnia, # 60 tablet, 11 Refills, Maintenance, 05/16/21 3:02:00 EDT, Tablet, [facility], 163, cm, 07/23/20 13:59:00 EDT, Height,80.45, kg, 07/19/20 11:52:00 EDT, Dry Weight Start Date: 05/16/21 Status: Ordered metFORMIN 500 mg oral tablet 1 tablet = 500 mg, By Mouth, Daily, # 30 tablet, 11 Refills, Maintenance, 03/26/21 14:38:00 EDT, Tablet, [facility], 163, cm, 07/23/20 13:59:00 EDT, Height, [...] Refills, Maintenance, 02/25/21 10:36:00 EDT, EC Capsule, [facility], dose increased, 163, cm, 07/23/20 13:59:00 [...] 11 Refills, Maintenance, 05/16/21 3:02:00 EDT, Tablet, [facility], 163, cm, 07/23/20 13:59:00 EDT, Height, 80.45, kg, 07/19/2011:52:00 EDT, Dry Weight Start Date: 05/16/21 Stop Date: 05/11/22 Status: Ordered Ventolin HFA 108 mcg/inh inhalation aerosol with adapter 2 puffs, Inhalation, Every 4 hours, PRN for wheezing, # 2 each, 5 Refills, Maintenance, 12/12/21 15:20:00 EST, Aerosol, [facility], 164, cm, 05/23/21 15:48:00 EDT, Height, 73, kg, 05/23/21 15:48:00 EDT, Dry Weight Start Date: 12/12/21 Stop Date: 06/05/23 Status: Ordered Ventolin HFA 108 mcg/inh inhalation aerosol with adapter 2 puffs, Inhalation, Every 4 hours, PRN for wheezing, # 1 each, 0 Refills, Maintenance, 12/28/21 20:37:00 EST, Aerosol, [id number], 164, cm, 05/23/21 15:48:00 EDT, Height, 73, kg, 05/23/21 15:48:00 EDT, Dry Weight Start Date: 12/28/21 Status: Ordered Problem List Condition Effective Dates Status Health Status Inform ant Anxiety(Confirmed) Active Asthma(Confirmed) Active ADHD (attention deficit hype ractivity disorder)(Confirmed) Active Cocaine abuse(Confirmed) Active Depression(Confirmed) Active GERD - Gastro-esophageal ref lux disease(Confirmed) Active HIV disease(Confirmed) Active Hyperlipidemia(Confirmed) Active Prediabetes(Confirmed) Active Insomnia(Confirmed) Active Migraine(Confirmed) Active Heroin use(Confirmed) Active Opiate addiction(Confirmed) Active *[phone] Care Partn rell Eagle(Confirmed) Active Polysubstance abuse(Confirmed) Active PTSD (post-traumatic stress disorder)(Confirmed) Active Social History Social History Type Response Smoking Status Current every day ardha cesarer; Type: Cigarettes; Other: 1/2 pk a day; Tobacco use times per day: 8 CIGS A DAY; Started at age: 15; entered on: 05/24/18 Sex
--- OUTSIDE RECORDS SUMMARY | 2023-05-22 15:34 | XMS_ITS | Continuity of Care Document ---
Author Name Unknown Organization [facility] Address [address] [place] [id number]- Care Team Providers Care Assistant Store Leader Name Role Phone Joss Augustine MD Primary Care Physician Encounter [facility] [place] Date(s): 05/20/21 - 05/20/[address] [address]- Discharge Disposition: A-D/C Walkout Attending Physician: Not on Staff, Attending MD Admitting Physician: Not on Staff, Admitting MD Referring Physician: Not on Staff, Referring [...] tablet, 11 Refills, Maintenance, 02/25/21 10:33:00 EDT, [facility], 163, cm, 07/23/20 13:59:00 EDT, Height, 80.45, kg, 07/19/20 11:52:00 EDT, Dry Weight Start Date: 02/25/21 Status: Ordered cholecalciferol 1000 intl units oral tablet 1 tablet = 1,000 International_Units, By Mouth, Daily, # 30 tablet, 11 Refills, Maintenance, 07/23/20 17:03:00 EDT, Tablet, Trish [id number] ([facility]), 163, cm, 07/23/20 13:59:00 EDT, Height, 80.45, kg, 07/19/20 11:52:00 EDT, Dry Weight Start Date: 07/23/20 Status: Ordered Descovy 200 mg-25 mg oral tablet 1 tablet, By Mouth, Daily, # 30 tablet, 5 Refills, Maintenance, 02/25/21 10:37:00 EDT, Tablet, [facility], 1 tablet By Mouth Daily,x30 days, 163, cm, 07/23/20 13:59:00 EDT, Height, 80.45, kg, 07/19/20 11:52:00 EDT, Dry Weight Start Date: 02/25/21 Stop Date: 08/24/21 Status: Ordered dolutegravir 50 mg oral tablet 1 tablet = 50 mg, By Mouth, Daily, # 30 tablet, 5 Refills, Maintenance, 02/25/21 10:37:00 EDT, Tablet, [facility], 163, cm, 07/23/20 13:59:00 [...] 01/28/21 17:12:00 EDT, Route to Pharmacy Electronically, [facility], 163, cm, 07/23/20 13:59:00 EDT, Height, 80.45, kg, 07/19/20 11:52:... Start Date: 01/28/21 Status: Ordered melatonin 5 mg oral tablet 1 tablet = 5 mg, By Mouth, Daily at bedtime, PRN for insomnia, # 60 tablet, 11 Refills, Maintenance, 05/16/21 3:02:00 EDT, Tablet, [facility], 163, cm, 07/23/20 13:59:00 EDT, Height,80.45, kg, 07/19/20 11:52:00 EDT, Dry Weight Start Date: 05/16/21 Status: Ordered metFORMIN 500 mg oral tablet 1 tablet = 500 mg, By Mouth, Daily, # 30 tablet, 11 Refills, Maintenance, 03/26/21 14:38:00 EDT, Tablet, [facility], 163, cm, 07/23/20 13:59:00 EDT, [...] 15:14:00 EST, 12/04/20 15:13:00 EST, REC Powder, [facility], Partial fill upon patient request if the prescription is for a schedule II opi... Start Date: 12/04/20 Stop Date: 09/05/21 Status: Ordered omeprazole 40 mg oral enteric coated capsule 1 capsule = 40 mg, By Mouth, 2 times a day, # 60 capsule, 11 Refills, Maintenance, 02/25/21 10:36:00 EDT, EC Capsule, [facility], dose increased, 163, cm, 07/23/20 [...] 11 Refills, Maintenance, 05/16/21 3:02:00 EDT, Tablet, [facility], 163, cm, 07/23/20 13:59:00 EDT, Height, 80.45, kg, 07/19/2011:52:00 EDT, Dry Weight Start Date: 05/16/21 Stop Date: 05/11/22 Status: Ordered Ventolin HFA 108 mcg/inh inhalation aerosol with adapter 2 puffs, Inhalation, Every 4 hours, PRN for wheezing, # 2 each, 5 Refills, Maintenance, 05/20/21 17:54:00 EDT, Aerosol, [facility], 163, cm, 07/23/20 13:59:00 [...] Active Heroin use(Confirmed) Active Opiate addiction(Confirmed) Active *[phone] Care Partn rell Eagle(Confirmed) Active Polysubstance abuse(Confirmed) Active PTSD (post-traumatic stress disorder)(Confirmed) Active Vital Signs Most recent to oldest [Reference Range]: 1 2 Oxygen Saturation [94-100 %] 98 % (05/20/21 12:57 PM) 99 % (05/20/21 12:32 PM) Pulse Rate [55-90 bpm] 65 bpm (05/20/21 12:57 PM) 65 bpm (05/20/21 12:32 PM) Blood Pressure [90-138/55-84 mm Hg] 108/ 67mm Hg 1 (05/20/21 12:57 PM) Respiratory Rate [16-30 br/min] 17 br/mi n (05/20/21 12:57 PM) Temperature [96.8-100.4 DegF] 98.0 DegF (05/20/21 12:57 PM) Mode of Delivery (Oxygen) Room air (05/20/21 12:57 PM) Room air (05/20/21 12:32 PM) Temperature Route Oral (05/20/21 12:57 PM) 1Result Comment: ADVISED NURSE( NAVJOT) IN TRIAGE THAT T BP WAS LOW ON R ARM AND L ARM Social History Social History Type Response Smoking Status 10 or more cigarette s (1/2 pack or more)/day in last 30 days; Tobacco user in household: Yes entered on: 07/19/20 Sex
--- OUTSIDE RECORDS SUMMARY | 2023-05-22 15:34 | XMS_ITS | Continuity of Care Document ---
Author Name Unknown Organization [facility] Address [address] [place] [id number]- Care Team Providers Care Oil Fire Specialist Name Role Phone Joss Augustine MD Primary Care Physician Encounter [facility] [place] Date(s): 07/27/20 - 08/29/20 [facility] [address] [place] [id number]- [facility] Attending Physician: Joss Augustine MD Admitting Physician: [...] tablet, 11 Refills, Maintenance, 02/13/20 12:00:00 EDT, [facility], 163, cm, 12/30/19 8:46:00 EST, Height, 81.1, kg, 12/23/19 11:40:00 EST, Dry Weight Start Date: 02/13/20 Status: Ordered cholecalciferol 1000 intl units oral tablet 1 tablet = 1,000 International_Units, By Mouth, Daily, # 30 tablet, 11 Refills, Maintenance, 07/23/20 17:03:00 EDT, [facility]t, [facility] [id number] [facility]), 163, cm, 07/23/20 13:59:00 EDT, Height, 80.45, kg, 07/19/20 11:52:00 EDT, Dry Weight Start Date: 07/23/20 Status: Ordered Descovy 200 mg-25 mg oral tablet 1 tablet, By Mouth, Daily, # 30 tablet, 5 Refills, Maintenance, 08/20/20 16:10:00 EDT, Tablet, [facility], 1 tablet By Mouth Daily,x30 days, 163, cm, 07/23/20 13:59:00 EDT, Height, 80.45, kg, 07/19/20 11:52:00 EDT, Dry Weight Start Date: 08/20/20 Stop Date: 02/16/21 Status: Ordered dolutegravir 50 mg oral tablet 1 tablet = 50 mg, By Mouth, Daily, # 30 tablet, 5 Refills, Maintenance, 06/19/20 11:52:00 EDT, Tablet, [facility], 163, cm, 12/30/19 8:46:00 EST, [...] EDT, Route to Pharmacy Electronically, Trish Obrien ([facility]), 163, cm, 07/23/20 13:59:00 EDT, Height, 80.45, kg, 07/19/20 1... Start Date: 07/23/20 Status: Ordered melatonin 5 mg oral tablet 1 tablet = 5 mg, By Mouth, Daily at bedtime, PRN for insomnia, # 60 tablet, 11 Refills, Maintenance, 05/14/20 14:54:00 EDT, Tablet, [facility], 163, cm, 12/30/19 8:46:00 EST, Height,81.1, kg, 12/23/19 11:40:00 EST, Dry Weight Start Date: 05/14/20 Status: Ordered metFORMIN 500 mg oral tablet 1 tablet = 500 mg, By Mouth, Daily, # 30 tablet, 11 Refills, Maintenance, 03/13/20 17:35:00 EDT, Tablet, [facility], 163, cm, 12/30/19 8:46:00 [...] Refills, Maintenance, 02/13/20 12:00:00 EDT, EC Capsule, [facility], dose increased, 163, cm, [...] 11 Refills, Maintenance, 05/14/20 14:54:00 EDT, Tablet, [facility], 163, cm, 12/30/19 8:46:00 EST, Height, 81.1, kg, 12/23/19 11:40:00 EST, Dry Weight Start Date: 05/14/20 Stop Date: 05/09/21 Status: Ordered Ventolin HFA 108 mcg/inh inhalation aerosol with adapter 2 puffs, Inhalation, Every 4 hours, PRN for wheezing, # 3 each, 3 Refills, Maintenance, 04/21/20 8:52:00 EDT, Aerosol, [facility], 163, cm, 12/30/19 8:46:00 EST, [...] Active Heroin use(Confirmed) Active Opiate addiction(Confirmed) Active *[phone] Care Partn rell Eagle(Confirmed) Active Polysubstance abuse(Confirmed) Active PTSD (post-traumatic stress disorder)(Confirmed) Active Social History Social History Type Response Smoking Status 10 or more cigarette s (1/2 pack or more)/day in last 30 days; Tobacco user in household: Yes entered on: 07/19/20 Sex
--- OUTSIDE RECORDS SUMMARY | 2023-05-22 15:34 | XMS_ITS | Continuity of Care Document ---
Author Name Unknown Organization [facility] Address Unknown Care Team Providers Care Property Technician Name Role Phone Joss Augustine MD Primary Care Physician [place] [facility] 08/29/21 - 09/28/21 [facility] Allergies, Adverse Reactions, Alerts Substance Reaction Severity [...] tablet, 11 Refills, Maintenance, 02/25/21 10:33:00 EDT, [facility], 163, cm, 07/23/20 13:59:00 EDT, Height, 80.45, kg, 07/19/20 11:52:00 EDT, Dry Weight Start Date: 02/25/21 Status: Ordered cholecalciferol 1000 intl units oral tablet 1 tablet = 1,000 International_Units, By Mouth, Daily, # 30 tablet, 11 Refills, Maintenance, 08/29/21 10:17:00 EDT, Tablet, [facility], 164, cm, 05/23/21 15:48:00 EDT, Height, 73, kg, 05/23/21 15:48:00 EDT, Dry Weight Start Date: 08/29/21 Status: Ordered Descovy 200 mg-25 mg oral tablet 1 tablet, By Mouth, Daily, # 30 tablet, 2 Refills, Maintenance, 09/24/21 6:24:00 EST, Tablet, [facility], 1 tablet By Mouth Daily,x30 days, 164, cm, 05/23/21 15:48:00 EDT, Height, 73, kg, 05/23/21 15:48:00 EDT, Dry Weight Start Date: 09/24/21 Stop Date: 12/23/21 Status: Ordered dolutegravir 50 mg oral tablet 1 tablet = 50 mg, By Mouth, Daily, # 30 tablet, 2 Refills, Maintenance, 09/24/21 6:24:00 EST, Tablet, [facility], 164, cm, 05/23/21 15:48:00 EDT, [...] 07/16/21 7:01:00 EDT, Route to Pharmacy Electronically, [facility], 164, cm, 05/23/21 15:48:00 EDT, Height, 73, kg, 05/23/21 15:48:00 E... Start Date: 07/16/21 Status: Ordered melatonin 5 mg oral tablet 1 tablet = 5 mg, By Mouth, Daily at bedtime, PRN for insomnia, # 60 tablet, 11 Refills, Maintenance, 05/16/21 3:02:00 EDT, Tablet, [facility], 163, cm, 07/23/20 13:59:00 EDT, Height,80.45, kg, 07/19/20 11:52:00 EDT, Dry Weight Start Date: 05/16/21 Status: Ordered metFORMIN 500 mg oral tablet 1 tablet = 500 mg, By Mouth, Daily, # 30 tablet, 11 Refills, Maintenance, 03/26/21 14:38:00 EDT, Tablet, [facility], [...] Refills, Maintenance, 02/25/21 10:36:00 EDT, EC Capsule, [facility], dose increased, 163, cm, [...] 11 Refills, Maintenance, 05/16/21 3:02:00 EDT, Tablet, [facility], 163, cm, 07/23/20 13:59:00 EDT, Height, 80.45, kg, 07/19/2011:52:00 EDT, Dry Weight Start Date: 05/16/21 Stop Date: 05/11/22 Status: Ordered Ventolin HFA 108 mcg/inh inhalation aerosol with adapter 2 puffs, Inhalation, Every 4 hours, PRN for wheezing, # 2 each, 5 Refills, Maintenance, 05/20/21 17:54:00 EDT, Aerosol, [facility], 163, [...] Active Heroin use(Confirmed) Active Opiate addiction(Confirmed) Active *[id number] Care Partn rell Eagle(Confirmed) Active Polysubstance abuse(Confirmed) Active PTSD (post-traumatic stress disorder)(Confirmed) Active Social History Social History Type Response Smoking Status Current every day radha guthrie; Type: Cigarettes; Other: 1/2 pk a day; Tobacco use times per day: 8 CIGS A DAY; Started at age: 15; entered on: 05/24/18 Sex
--- OUTSIDE RECORDS SUMMARY | 2023-05-22 15:34 | XMS_ITS | Continuity of Care Document ---
Author Name Unknown Organization [facility] Address [address] [place] [address]- Care Team Providers Care Recycling Operations Manager Name Role Phone Joss Augustine MD Primary Care Physician Encounter [facility] [place] Date(s): 11/15/19 - 12/22/19 [facility]/[address] [address]- [facility] Attending Physician: Jose Elias Mckenzie MD Admitting [...] oral tablet 1 tablet, By Mouth, Daily, for 30 days, # 30 tablet, 5 Refills, Hard Stop 02/08/20 15:38:54 EDT, 08/12/19 15:38:54 EDT, Tablet, [facility] Start Date: 08/12/19 Stop Date: 02/08/20 Status: Ordered Descovy 200 mg-25 mg oral tablet 1 tablet, By Mouth, Daily, # 30 tablet, 5 Refills, Maintenance, 11/28/19 15:38:00 EST, Tablet, [facility], 1 tablet By Mouth Daily,x30 days, 170, cm, 11/07/19 9:01:00 EST, Height, 90, kg, 10/06/19 0:00:00 EST, Dry Weight Start Date: 11/28/19 Stop Date: 05/26/20 Status: Ordered dolutegravir 50 mg oral tablet 1 tablet = 50 mg, By Mouth, Daily, for 30 days, # 30 tablet, 5 Refills, Hard Stop 02/05/20 12:01:56EDT, 08/09/19 12:01:56 EDT, Tablet, [facility] Start Date: 08/09/19 Stop Date: 02/05/20 Status: Ordered dolutegravir 50 mg oral tablet 1 tablet = 50 mg, By Mouth, Daily, # 30 tablet, 5 Refills, Maintenance, 11/28/19 12:15:00 EST, Tablet, [facility], 170, cm, 11/07/19 9:01:00 EST, [...] 10/17/19 17:05:00 EST, Route to Pharmacy Electronically, [facility], 170, cm, 10/17/19 16:41:00 EST, Height, 90, [...] 300 mg, Subcutaneous Infusion, Every 28 days, [id number] Eagleson Patient to continue 300 mg reassess in 2 months diagnosis: F11.2, # 1 Doses, 1 Refills, Maintenance, 09/27/19 17:03:20 EST Start Date: 09/27/19 Status: Ordered Suboxone 8 mg-2 mg sublingual film 2 each, Sublingual, Daily, [id number] Eagleson dissolve under the tongue fill on/after 11/22/2019 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 Start Date: 10/17/19 Stop Date: 10/24/19 Status: Ordered topiramate 50 mg oral tablet 1 tablet = 50 mg, By Mouth, 2 times a day, # 60 tablet, 5 Refills, Maintenance, 10/31/19 17:43:00 EST, Tablet, [facility], 170, cm, 10/17/19 16:41:00 EST, Height, 90, kg, 10/06/19 0:00:00 EST, Dry Weight Start Date: 10/31/19 Stop Date: 04/28/20 Status: Ordered Ventolin HFA 108 mcg/inh inhalation aerosol with adapter 2 puffs, Inhalation, Every 4 hours, PRN for wheezing, # 18 Gm, 5 Refills, Maintenance, 11/23/19 19:51:00 EST, Aerosol, [facility], 170, cm, 11/07/19 9:01:00 EST, Height, 90, kg, 10/06/19 0:00:00 EST, Dry Weight Start Date: 11/23/19 Status: Ordered Walker See Instructions, # 1 [...] Active Heroin use(Confirmed) Active Opiate addiction(Confirmed) Active *[id number]- [facility] Part ner Shahida Montelongo(Confirmed) Active PTSD (post-traumatic stress disorder)(Confirmed) Active Social History Social History Type Response Smoking Status 10 or more cigarette s (1/2 pack or more)/day in last 30 days entered on: 11/07/19 Sex
--- OUTSIDE RECORDS SUMMARY | 2023-05-22 15:34 | XMS_ITS | Continuity of Care Document ---
Author Name Unknown Organization [facility] Address Unknown Care Team Providers Care Kaiako Kohanga Reo Name Role Phone Joss Augustine MD Primary Care Physician [place] [facility] [place] 02/05/22 [facility] Attending Physician: Joss Augustine MD Admitting [...] tablet, 11 Refills, Maintenance, 02/25/21 10:33:00 EDT, [facility], 163, cm, 07/23/20 13:59:00 EDT, Height, 80.45, kg, 07/19/20 11:52:00 EDT, Dry Weight Start Date: 02/25/21 Status: Ordered cholecalciferol 1000 intl units oral tablet 1 tablet = 1,000 International_Units, By Mouth, Daily, # 30 tablet, 11 Refills, Maintenance, 08/29/21 10:17:00 EDT, Tablet, [facility], 164, cm, 05/23/21 15:48:00 EDT, Height, 73, kg, 05/23/21 15:48:00 EDT, Dry Weight Start Date: 08/29/21 Status: Ordered Descovy 200 mg-25 mg oral tablet 1 tablet, By Mouth, Daily, # 30 tablet, 2 Refills, Maintenance, 01/16/22 15:18:00 EDT, Tablet, [facility], 1 tablet By Mouth Daily,x30 days, 164, cm, 05/23/21 15:48:00 EDT, Height, 73, kg, 05/23/21 15:48:00 EDT, Dry Weight Start Date: 01/16/22 Stop Date: 04/16/22 Status: Ordered dolutegravir 50 mg oral tablet 1 tablet = 50 mg, By Mouth, Daily, # 30 tablet, 2 Refills, Maintenance, 01/16/22 15:18:00 EDT, Tablet, [facility], 164, cm, 05/23/21 15:48:00 [...] 07/16/21 7:01:00 EDT, Route to Pharmacy Electronically, [facility], 164, cm, 05/23/21 15:48:00 EDT, Height, 73, kg, 05/23/21 15:48:00 E... Start Date: 07/16/21 Status: Ordered melatonin 5 mg oral tablet 1 tablet = 5 mg, By Mouth, Daily at bedtime, PRN for insomnia, # 60 tablet, 11 Refills, Maintenance, 05/16/21 3:02:00 EDT, Tablet, [facility], 163, cm, 07/23/20 13:59:00 EDT, Height,80.45, kg, 07/19/20 11:52:00 EDT, Dry Weight Start Date: 05/16/21 Status: Ordered metFORMIN 500 mg oral tablet 1 tablet = 500 mg, By Mouth, Daily, # 30 tablet, 11 Refills, Maintenance, 03/26/21 14:38:00 EDT, Tablet, [facility], 163, cm, 07/23/20 13:59:00 [...] Refills, Maintenance, 02/25/21 10:36:00 EDT, EC Capsule, [facility], dose increased, 163, cm, [...] Refills, Maintenance, 05/16/21 3:02:00 EDT, Tablet, [facility], 163, cm, 07/23/20 13:59:00 EDT, Height, 80.45, kg, 07/19/2011:52:00 EDT, Dry Weight Start Date: 05/16/21 Stop Date: 05/11/22 Status: Ordered Ventolin HFA 108 mcg/inh inhalation aerosol with adapter 2 puffs, Inhalation, Every 4 hours, PRN for wheezing, # 2 each, 5 Refills, Maintenance, 12/12/21 15:20:00 EST, Aerosol, [facility], 164, cm, 05/23/21 15:48:00 EDT, Height, 73, kg, 05/23/21 15:48:00 EDT, Dry Weight Start Date: 12/12/21 Stop Date: 06/05/23 Status: Ordered Ventolin HFA 108 mcg/inh inhalation aerosol with adapter 2 puffs, Inhalation, Every 4 hours, PRN for wheezing, # 1 each, 0 Refills, Maintenance, 12/28/21 20:37:00 EST, Aerosol, [id number], 164, cm, 05/23/21 15:48:00 EDT, Height, 73, [...] Active Heroin use(Confirmed) Active Opiate addiction(Confirmed) Active *[phone] Care Partn rell Eagle(Confirmed) Active Polysubstance abuse(Confirmed) Active PTSD (post-traumatic stress disorder)(Confirmed) Active Social History Social History Type Response Smoking Status Current every day radha ugthrie; Type: Cigarettes; Other: 1/2 pk a day; Tobacco use times per day: 8 CIGS A DAY; Started at age: 15; entered on: 05/24/18 Sex
--- OUTSIDE RECORDS SUMMARY | 2023-05-22 15:34 | XMS_ITS | Continuity of Care Document ---
Author Name Unknown Organization [facility] Address [address] [place] [address]- Care Team Providers Care Jet Engine Mechanic Name Role Phone Joss Augustine MD Primary Care Physician [place] [facility] [place](s): 07/07/22 - 08/13/22 [facility] [place] [address]- Attending Physician: Joss Augustine MD Admitting Physician: [...] tablet, 11 Refills, Maintenance, 03/19/22 10:39:00 EDT, [facility], 164, cm, 05/23/21 15:48:00 EDT, Height, 73, kg, 05/23/21 15:48:00 EDT, DryWeight Start Date: 03/19/22 Status: Ordered cholecalciferol 1000 intl units oral tablet 1 tablet = 1,000 International_Units, By Mouth, Daily, # 30 tablet, 11 Refills, Maintenance, 08/29/21 10:17:00 EDT, Tablet, [facility], 164, cm, 05/23/21 15:48:00 EDT, Height, 73, kg, 05/23/21 15:48:00 EDT, Dry Weight Start Date: 08/29/21 Status: Ordered Descovy 200 mg-25 mg oral tablet 1 tablet, By Mouth, Daily, # 30 tablet, 0 Refills, Maintenance, 04/18/22 7:43:00 EDT, Tablet, [facility], 1 tablet By Mouth Daily,x30 days, 164, cm, 05/23/21 15:48:00 EDT, Height, 73, kg, 05/23/21 15:48:00 EDT, Dry Weight Start Date: 04/18/22 Stop Date: 05/18/22 Status: Ordered dolutegravir 50 mg oral tablet 1 tablet = 50 mg, By Mouth, Daily, # 30 tablet, 0 Refills, Maintenance, 04/18/22 7:44:00 EDT, Tablet, [facility], 164, cm, 05/23/21 15:48:00 EDT, Height, 73, kg, 05/23/21 15:48:00 EDT, Dry Weight Start Date: 04/18/22 Stop Date: 05/18/22 Status: Ordered Freestyle Lite Lancets See Instructions, [...] Date: 02/15/22 Stop Date: 02/10/23 Status: Ordered gabapentin 100 mg oral capsule 100 mg, 1, capsule, By Mouth, 3 times a day, # 90 capsule, Refills 11, Tot. Refills 11, Maintenance, 02/15/22 12:19:00 EDT, Route to Pharmacy Electronically, [facility], 164, cm, 05/23/21 15:48:00 EDT, Height, 73, kg, 05/23/21 15:48:0... Start Date: 02/15/22 Status: Ordered melatonin 5 mg oral tablet 1 tablet = 5 mg, By Mouth, Daily at bedtime, PRN for insomnia, # 60 tablet, 4 Refills, Maintenance,07/08/22 13:18:00 EDT, Tablet, [facility], 164, cm, 05/23/21 15:48:00 EDT, Height,73, kg, 05/23/21 15:48:00 EDT, Dry Weight Start Date: 07/08/22 Status: Ordered metFORMIN 500 mg oral tablet 1 tablet = 500 mg, By Mouth, Daily, # 30 tablet, 4 Refills, Maintenance, 07/08/22 13:18:00 EDT, Tablet, [facility], 164, cm, 05/23/21 15:48:00 EDT, [...] Refills, Maintenance, 03/19/22 10:38:00 EDT, EC Capsule, [facility], dose increased, 164, cm, 05/23/21 [...] 07/08/22 13:19:00 EDT, Route to Pharmacy Electronically, [facility], Partial fill upon patient request... Start Date: [...] 4 Refills, Maintenance, 07/08/22 13:18:00 EDT, Tablet, [facility], 164, cm, 05/23/21 15:48:00 EDT, Height, 73, kg, 05/23/21 15:48:00 EDT, Dry Weight Start Date: 07/08/22 Stop Date: 12/05/22 Status: Ordered Ventolin HFA 108 mcg/inh inhalation aerosol with adapter 2 puffs, Inhalation, Every 4 hours, PRN for wheezing, # 2 each, 5 Refills, Maintenance, 12/12/21 15:20:00 EST, Aerosol, [facility], 164, cm, 05/23/21 15:48:00 EDT, Height, 73, kg, 05/23/21 15:48:00 EDT, Dry Weight Start Date: 12/12/21 Stop Date: 06/05/23 Status: Ordered Ventolin HFA 108 mcg/inh inhalation aerosol with adapter 2 puffs, Inhalation, Every 4 hours, PRN for wheezing, # 1 each, 0 Refills, Maintenance, 12/28/21 20:37:00 EST, Aerosol, [id number], 164, cm, 05/23/21 15:48:00 EDT, Height, 73, kg, 05/23/21 15:48:00 EDT, Dry Weight Start Date: 12/28/21 Status: Ordered Problem List Condition Confirmation Course [...] use Confirmed Active Opiate addiction Confirmed Active *[phone] Staff Physician Minoo Eagle Confirmed Active Polysubstance abuse Confirmed Active PTSD (post-traumatic stress disorder) Confirmed Active Social History Social History Type Response Smoking Status Current every day sm oker; Type: Cigarettes; Other: 1/2 pk a day; Tobacco use times per day: 8 CIGS A DAY; Started at age: 15; entered on: 05/24/18 Sex Patient Care team information Personnel Name: Joss Augustine MD Address: Address: [address] [place] [address]
--- OUTSIDE RECORDS SUMMARY | 2023-05-22 15:34 | XMS_ITS | Continuity of Care Document ---
Author Name Unknown Organization [facility] Address [address] [place] [address]- Care Team Providers Care Cardroom Hand Name Role Phone Joss Augustine MD Primary Care Physician Encounter [facility] [place] Date(s): 11/18/22 - 12/18/22 [facility] [address]- Attending Physician: Mike Nuñez Admitting Physician: AdmMike tracy Referring Physician: AdmtrMike Allergies, Adverse Reactions, Alerts No Known Allergies Immunizations Given and Recorded Vaccine Date Status Refusal Reason [id number] 12y+ bivalent booster vax 09/29/22 Given influenza [...] tablet, 11 Refills, Maintenance, 03/19/22 10:39:00 EDT, [facility], 164, cm, 05/23/21 15:48:00 EDT, Height, 73, kg, 05/23/21 15:48:00 EDT, DryWeight Start Date: 03/19/22 Status: Ordered cholecalciferol 1000 intl units oral tablet 1 tablet = 1,000 International_Units, By Mouth, Daily, # 30 tablet, 4 Refills, Maintenance, 09/04/22 16:07:00 EST, Tablet, [facility], 164, cm, 05/23/21 15:48:00 EDT, Height, 73, kg,05/23/21 15:48:00 EDT, Dry Weight Start Date: 09/04/22 Status: Ordered Descovy 200 mg-25 mg oral tablet 1 tablet, By Mouth, Daily, # 30 tablet, 3 Refills, Maintenance, 11/18/22 18:13:00 EST, Tablet, [facility], 1 tablet By Mouth Daily,x30 days, 164, cm, 11/18/22 16:28:00 EST, Height, 73, kg, 05/23/21 15:48:00 EDT, Dry Weight Start Date: 11/18/22 Stop Date: 03/18/23 Status: Ordered dolutegravir 50 mg oral tablet 1 tablet = 50 mg, By Mouth, Daily, # 30 tablet, 3 Refills, Maintenance, 11/18/22 18:13:00 EST, Tablet, [facility], 164, cm, 11/18/22 16:28:00 EST, Height, 73, kg, 05/23/21 15:48:00 EDT, Dry Weight Start Date: 11/18/22 Stop Date: 03/18/23 Status: Ordered Freestyle Lite Lancets See Instructions, [...] tablet, 4 Refills, Maintenance,07/08/22 13:18:00 EDT, Tablet, [facility], 164, cm, 05/23/21 15:48:00 EDT, Height,73, kg, 05/23/21 15:48:00 EDT, Dry Weight Start Date: 07/08/22 Status: Ordered metFORMIN 500 mg oral tablet 1 tablet = 500 mg, By Mouth, Daily, # 30 tablet, 4 Refills, Maintenance, 12/18/22 16:42:00 EST, Tablet, [facility], 164, cm, 11/18/22 16:28:00 EST, [...] Refills, Maintenance, 03/19/22 10:38:00 EDT, EC Capsule, [facility], dose increased, 164, cm, 05/23/21 [...] tablet, Refills 4, Tot. Refills 4, Acute, 05/17/23 16:43:00 EDT, 12/18/22 16:43:00 EST, Route to Pharmacy Electronically, [facility], Partial fill upon patient request... Start Date: 12/18/22 Stop Date: 05/17/23 Status: Ordered sertraline 100 mg oral tablet 1 tablet = 100 mg, By Mouth, Daily, # 90 tablet, 3 Refills, Maintenance, 01/17/19 11:48:28 EDT, Tablet Start Date: 01/17/19 Stop Date: 01/12/20 Status: Ordered topiramate 50 mg oral tablet 1 tablet = 50 mg, By Mouth, 2 times a day, # 60 tablet, 4 Refills, Maintenance, 07/08/22 13:18:00 EDT, Tablet, [facility], 164, cm, 05/23/21 15:48:00 EDT, Height, 73, kg, 05/23/21 15:48:00 EDT, Dry Weight Start Date: 07/08/22 Stop Date: 12/05/22 Status: Ordered Ventolin HFA 108 mcg/inh inhalation aerosol with adapter 2 puffs, Inhalation, Every 4 hours, PRN for wheezing, # 2 each, 5 Refills, Maintenance, 12/12/21 15:20:00 EST, Aerosol, [facility], 164, cm, 05/23/21 15:48:00 EDT, Height, 73, kg, 05/23/21 15:48:00 EDT, Dry Weight Start Date: 12/12/21 Stop Date: 06/05/23 Status: Ordered Ventolin HFA 108 mcg/inh inhalation aerosol with adapter 2 puffs, Inhalation, Every 4 hours, PRN for wheezing, # 1 each, 11 Refills, Maintenance, 12/18/22 16:41:00 EST, Aerosol, [facility], 164, cm, 11/18/22 16:28:00 EST, Height, 73, kg, 05/23/21 15:48:00 EDT, Dry Weight Start Date: 12/18/22 Status: Ordered Problem List Condition Confirmation Course [...] use Confirmed Active Opiate addiction Confirmed Active *[id number] Vp [employer]ent [employer] Minoo Eagle Confirmed Active Breast cancer screening Confirmed Active Polysubstance abuse Confirmed Active PTSD (post-traumatic stress disorder) Confirmed Active Social History Social History Type Response Smoking Status 10 or more cigarette s (1/2 pack or more)/day in last 30 days; Other: pack a day; entered on: 11/18/22 Sex Note * Event Display: Non BH Lab Results Authored Date: * Event Display: Non BH Cardiovascular Results Authored Date: [id number] * Event Display: MM Mammogram, Non- BH Authored Date: * Event Display: Non BH Lab Results Authored Date: * Event Display: Non BH Cardiovascular Results Authored Date: * Event Display: X-Ray Chest, Non- BH Authored Date: * Event Display: Non BH Lab Results Authored Date: Patient Care team information Care Team Personnel Name: Too MARINO, Raina Donahue Position: [facility] Associate Professional Member Role: Primary Care Nurse Address: Address: [address] [place] [address] Name: Joss Augustine MD Position: [facility] Primary Care Physician Member Role: PCP Address: Address: [address] [place] [address] Name: Radha Murillo RN Position: [facility] Hospital Pan Greaser Member Role: Primary Care Nurse Care Team Related Persons Name: SARWAT PEARL Address: [address] [place] [address] Name: CRYSTAL PEARL Address: [address] [place] [address] Name: DARRICK RENEE
--- OUTSIDE RECORDS SUMMARY | 2023-05-22 15:34 | XMS_ITS | Continuity of Care Document ---
Author Name Unknown Organization [facility] Address [address] [place] [address]- Care Team Providers Care Compressor Mechanic Name Role Phone Fawn REAL, Joss Martin Primary Care Physician Encounter [facility] [place] Date(s): 03/26/21 - 04/25/21 [facility]/[address] [address]- Allergies, Adverse Reactions, Alerts Substance Reaction Severity [...] tablet, 11 Refills, Maintenance, 02/25/21 10:33:00 EDT, [facility], 163, cm, 07/23/20 13:59:00 EDT, Height, 80.45, kg, 07/19/20 11:52:00 EDT, Dry Weight Start Date: 02/25/21 Status: Ordered cholecalciferol 1000 intl units oral tablet 1 tablet = 1,000 International_Units, By Mouth, Daily, # 30 tablet, 11 Refills, Maintenance, 07/23/20 17:03:00 EDT, Tablet, [facility] [id number] [facility] 163, cm, 07/23/20 13:59:00 EDT, Height, 80.45, kg, 07/19/20 11:52:00 EDT, Dry Weight Start Date: 07/23/20 Status: Ordered Descovy 200 mg-25 mg oral tablet 1 tablet, By Mouth, Daily, # 30 tablet, 5 Refills, Maintenance, 02/25/21 10:37:00 EDT, Tablet, [facility], 1 tablet By Mouth Daily,x30 days, 163, cm, 07/23/20 13:59:00 EDT, Height, 80.45, kg, 07/19/20 11:52:00 EDT, Dry Weight Start Date: 02/25/21 Stop Date: 08/24/21 Status: Ordered dolutegravir 50 mg oral tablet 1 tablet = 50 mg, By Mouth, Daily, # 30 tablet, 5 Refills, Maintenance, 02/25/21 10:37:00 EDT, Tablet, [facility], 163, cm, [...] 01/28/21 17:12:00 EDT, Route to Pharmacy Electronically, [facility], 163, cm, 07/23/20 13:59:00 EDT, Height, 80.45, kg, 07/19/20 11:52:... Start Date: 01/28/21 Status: Ordered melatonin 5 mg oral tablet 1 tablet = 5 mg, By Mouth, Daily at bedtime, PRN for insomnia, # 60 tablet, 11 Refills, Maintenance, 05/14/20 14:54:00 EDT, Tablet, [facility], 163, cm, 12/30/19 8:46:00 EST, Height,81.1, kg, 12/23/19 11:40:00 EST, Dry Weight Start Date: 05/14/20 Status: Ordered metFORMIN 500 mg oral tablet 1 tablet = 500 mg, By Mouth, Daily, # 30 tablet, 11 Refills, Maintenance, 03/26/21 14:38:00 EDT, Tablet, [facility], 163, cm, 07/23/20 [...] 11 Refills, Maintenance, 05/14/20 14:54:00 EDT, Tablet, [facility], 163, cm, 12/30/19 8:46:00 EST, Height, 81.1, kg, 12/23/19 11:40:00 EST, Dry Weight Start Date: 05/14/20 Stop Date: 05/09/21 Status: Ordered Ventolin HFA 108 mcg/inh inhalation aerosol with adapter 2 puffs, Inhalation, Every 4 hours, PRN for wheezing, # 3 each, 3 Refills, Maintenance, 12/26/20 12:47:00 EST, Aerosol, [facility], 163, cm, 07/23/20 13:59:00 [...] Active Heroin use(Confirmed) Active Opiate addiction(Confirmed) Active *[id number] Care Partn rell Eagle(Confirmed) Active Polysubstance abuse(Confirmed) Active PTSD (post-traumatic stress disorder)(Confirmed) Active Social History Social History Type Response Smoking Status 10 or more cigarette s (1/2 pack or more)/day in last 30 days; Tobacco user in household: Yes entered on: 07/19/20 Sex
--- OUTSIDE RECORDS SUMMARY | 2023-05-22 15:34 | XMS_ITS | Continuity of Care Document ---
Author Name Unknown Organization [facility] Address [address] [place] [address]- Care Team Providers Care Project Landscape Architect Name Role Phone Fawn REAL, Joss Martin Primary Care Physician Encounter [facility] [place] Date(s): 01/26/23 - 02/25/23 [facility] [address]- [place] Allergies, Adverse Reactions, Alerts No Known Allergies Immunizations Given and Recorded Vaccine Date Status Refusal Reason [id number] 12y+ bivalent booster vax 09/29/22 Given influenza [...] tablet, 0 Refills, Maintenance, 02/13/23 13:17:00 EDT, [facility], 164, cm, 01/19/23 15:23:00 EDT, Height, 68.18, kg, 01/15/23 10:48:00 EDT, . Start Date: 02/13/23 Stop Date: 10/26/24 Status: Ordered albuterol 0.083% inhalation solution 3 mL = 2.5 mg, Inhalation, Every 6 hours, PRN for wheezing, home delivery, # 25 each, 2 Refills, Maintenance, 01/01/23 9:12:00 EST, Solution, [facility], 164, cm, 01/01/23 [...] tablet, 11 Refills, Maintenance, 03/19/22 10:39:00 EDT, [facility], 164, cm, 05/23/21 15:48:00 EDT, Height, 73, kg, 05/23/21 15:48:00 EDT, DryWeight Start Date: 03/19/22 Status: Ordered cholecalciferol 1000 intl units oral tablet 1 tablet = 1,000 International_Units, By Mouth, Daily, # 30 tablet, 11 Refills, Maintenance, 02/18/23 7:13:00 EDT, Tablet, [facility], 164, cm, 01/19/23 15:23:00 EDT, Height, 68.18, kg, 01/15/23 10:48:00 EDT, Dry Weight Start Date: 02/18/23 Status: Ordered Descovy 200 mg-25 mg oral tablet 1 tablet, By Mouth, Daily, # 30 tablet, 3 Refills, Maintenance, 11/18/22 18:13:00 EST, Tablet, [facility], 1 tablet By Mouth Daily,x30 days, 164, cm, 11/18/22 16:28:00 EST, Height, 73, kg, 05/23/21 15:48:00 EDT, Dry Weight Start Date: 11/18/22 Stop Date: 03/18/23 Status: Ordered dolutegravir 50 mg oral tablet 1 tablet = 50 mg, By Mouth, Daily, # 30 tablet, 3 Refills, Maintenance, 11/18/22 18:13:00 EST, Tablet, [facility], 164, cm, 11/18/22 16:28:00 EST, Height, 73, kg, 05/23/21 15:48:00 EDT, Dry Weight Start Date: 11/18/22 Stop Date: 03/18/23 Status: Ordered Flonase 50 mcg/inh nasal spray 1 sprays, Nares, Both, 2 times a day, # 16 Gm, 0 Refills, Maintenance, 01/01/23 9:25:00 EST, [place],[facility], Partial fill upon patient request [...] tablet, 4 Refills, Maintenance,07/08/22 13:18:00 EDT, Tablet, [facility], 164, cm, 05/23/21 15:48:00 EDT, Height,73, kg, 05/23/21 15:48:00 EDT, Dry Weight Start Date: 07/08/22 Status: Ordered metFORMIN 500 mg oral tablet 1 tablet = 500 mg, By Mouth, Daily, # 30 tablet, 4 Refills, Maintenance, 12/18/22 16:42:00 EST, Tablet, [facility], 164, cm, 11/18/22 16:28:00 EST, [...] Gm, 3 Refills, Maintenance, 01/19/23 14:48:00 EDT, [facility], For constipation: one capful by mouth, every day, tit... Start Date: 01/19/23 Status: Ordered mirtazapine 15 mg oral tablet 1 tablet = 15 mg, By Mouth, Daily at bedtime, # 90 tablet, 1 Refills, Maintenance, 01/16/23 11:22:00 EDT, Tablet, [facility], Partial fill upon patient request if the prescription isfor a schedule II opioid drug., 164, cm, 01/15/23 1... Start Date: 01/16/23 Stop Date: 02/15/23 Status: Ordered nicotine 14 mg/24 hr transdermal film, extended release 1 patch, Topically, Daily, # 30 patch, 1 Refills, Maintenance, 02/23/23 4:50:00 EDT, Patch, [facility], Partial fill upon patient request if the prescription is for a schedule II opioid drug., 1 patch Topically Daily, 164, cm, ... Start Date: 02/23/23 Status: Ordered nicotine 14 mg/24 hr transdermal film, extended release 1 patch, Topically, Daily, for 6 week(s), # 42 patch, 0 Refills, Acute 02/27/23 12:49:00 EDT, 01/16/23 12:49:00 EDT, Patch, [facility], Partial fill upon patient request if the prescription is for a schedule II opioid drug., 1 patch T... Start Date: 01/16/23 Stop Date: 02/27/23 Status: Ordered nicotine 4 mg oral transmucosal lozenge 1 lozenge = 4 mg, By Mouth, Every 4 hours, for 6 week(s), # 252 lozenge, 0 Refills, Acute 02/27/23 12:48:00 EDT, 01/16/23 12:48:00 EDT, [facility], Partial fill upon patient request if the prescription is for a schedule II opioid drug... Start Date: 01/16/23 Stop Date: 02/27/23 Status: Ordered omeprazole 40 mg oral enteric coated capsule 1 capsule = 40 mg, By Mouth, 2 times a day, # 60 capsule, 11 Refills, Maintenance, 03/19/22 10:38:00 EDT, EC Capsule, [facility], dose increased, 164, cm, 05/23/21 [...] capsule, 1 Refills, Maintenance, 01/16/23 11:21:00 EDT, [facility], Partial fill upon patient request if the prescription is for a schedule II opioid drug., [id number], 01/15/23 10:48:00... Start Date: 01/16/23 Stop Date: 07/15/23 Status: Ordered Preparation H 14%-74.9%-0.25% rectal ointment 1 application, Rectally, 2 times a day, PRN as needed for itching, for 10 days, # 57 Gm, 3 Refills,Acute 02/28/23 15:13:00 EDT, 01/19/23 15:13:00 EDT, Ointment, [facility], 1 application Rectally 2 times a day,x10 days,PRN:as needed... Start Date: 01/19/23 Stop Date: 02/28/23 Status: Ordered Senna 8.6 mg oral tablet 17.2 mg, 2, tablet, By Mouth, Daily at bedtime, for 30 days, # 60 tablet, Refills 4, Tot. Refills 4, Acute, 06/14/23 11:16:00 EDT, 01/15/23 11:16:00 EDT, Route to Pharmacy Electronically, [facility], Partial fill upon patient request... Start Date: 01/15/23 Stop Date: 06/14/23 Status: Ordered sertraline 50 mg oral tablet 1 tablet = 50 mg, By Mouth, Daily, # 90 tablet, 1 Refills, Maintenance, 01/01/23 17:40:00 EST, Tablet, [facility], Partial fill upon patient request if the prescription is for a schedule II opioid drug., 164, cm, 01/01/23 8:52:00 EST,... Start Date: 01/01/23 Status: Ordered topiramate 50 mg oral tablet 1 tablet = 50 mg, By Mouth, 2 times a day, # 60 tablet, 7 Refills, Maintenance, 01/15/23 11:16:00 EDT, Tablet, [facility], 164, cm, 01/15/23 10:48:00 EDT, Height, 68.18, kg, 01/15/2310:48:00 EDT, Dry Weight Start Date: 01/15/23 Stop Date: 09/12/23 Status: Ordered Ventolin HFA 108 mcg/inh inhalation aerosol with adapter 2 puffs, Inhalation, Every 4 hours, PRN for wheezing, # 2 each, 5 Refills, Maintenance, 01/15/23 11:10:00 EDT, Aerosol, [facility], 164, cm, 01/15/23 [...] use Confirmed Active Opiate addiction Confirmed Active *[id number] Idea Man Marcella Sargent Confirmed Active Breast cancer screening [...] Donahue Position: [facility] Associate Professional Member Role: Primary Care Nurse Address: Address: [address] [place] [address]- Name: Joss Augustine MD Position: [facility] Primary Care Physician Member Role: PCP Address: Address: [address] [place] [address] - Name: Radha Murillo RN Position: [facility] Hospital [employer] Software Consultant Member Role: Primary Care Nurse Care Team Related Persons Name: SARWAT PEARL Address: [address] [place] [address] Name: CRYSTAL PEARL Address: [address] [place] [address] Name: DARRICK RENEE
--- OUTSIDE RECORDS SUMMARY | 2023-05-22 15:34 | XMS_ITS | Continuity of Care Document ---
Author Name Unknown Organization [facility] Address [address] [place] [address]- Care Team Providers Care Cloth Trimmer Hand Name Role Phone Joss Augustine MD Primary Care Physician [place] [facility] [place] 12/27/19 - 02/01/20 [facility]/[address] [address]- [facility] Attending Physician: Joss Augustine MD Admitting Physician: [...] Refills, Maintenance, 11/28/19 15:38:00 EST, Tablet, [facility], 1 tablet By Mouth Daily,x30 days, 170, cm, 11/07/19 9:01:00 EST, Height, 90, kg, 10/06/19 0:00:00 EST, Dry Weight Start Date: 11/28/19 Stop Date: 05/26/20 Status: Ordered dolutegravir 50 mg oral tablet 1 tablet = 50 mg, By Mouth, Daily, # 30 tablet, 5 Refills, Maintenance, 11/28/19 12:15:00 EST, Tablet, [facility], 170, cm, 11/07/19 9:01:00 [...] 5 Refills, Maintenance, 10/31/19 17:43:00 EST, Tablet, [facility], 170, cm, 10/17/19 16:41:00 EST, Height, 90, kg, 10/06/19 0:00:00 EST, Dry Weight Start Date: 10/31/19 Stop Date: 04/28/20 Status: Ordered Ventolin HFA 108 mcg/inh inhalation aerosol with adapter 2 puffs, Inhalation, Every 4 hours, PRN for wheezing, # 18 Gm, 5 Refills, Maintenance, 11/23/19 19:51:00 EST, Aerosol, [facility], 170, cm, 11/07/19 9:01:00 EST, Height, [...] Active Heroin use(Confirmed) Active Opiate addiction(Confirmed) Active *[id number]- Care Part ner Shahida Montelongo(Confirmed) Active Polysubstance abuse(Confirmed) Active PTSD (post-traumatic stress disorder)(Confirmed) Active Social History Social History Type Response Smoking Status 10 or more cigarette s (1/2 pack or more)/day in last 30 days entered on: 11/07/19 Sex
--- OUTSIDE RECORDS SUMMARY | 2023-05-22 15:34 | XMS_ITS | Continuity of Care Document ---
Author Name Unknown Organization [facility] [place] [facility] Address Unknown Care Team Providers Care Voice Over Artist Name Role Phone Joss Augustine MD Primary Care Physician En[place] [facility] [place] Date(s): 05/24/21 - 06/26/21 [facility] [place] [facility] Attending Physician: Joss Augustine MD Admitting [...] tablet, 11 Refills, Maintenance, 02/25/21 10:33:00 EDT, [facility], 163, cm, 07/23/20 13:59:00 EDT, Height, 80.45, kg, 07/19/20 11:52:00 EDT, Dry Weight Start Date: 02/25/21 Status: Ordered cholecalciferol 1000 intl units oral tablet 1 tablet = 1,000 International_Units, By Mouth, Daily, # 30 tablet, 11 Refills, Maintenance, 07/23/20 17:03:00 EDT, Tablet, [facility] [address] ([facility]), 163, cm, 07/23/20 13:59:00 EDT, Height, 80.45, kg, 07/19/20 11:52:00 EDT, Dry Weight Start Date: 07/23/20 Status: Ordered Descovy 200 mg-25 mg oral tablet 1 tablet, By Mouth, Daily, # 30 tablet, 5 Refills, Maintenance, 02/25/21 10:37:00 EDT, Tablet, [facility], 1 tablet By Mouth Daily,x30 days, 163, cm, 07/23/20 13:59:00 EDT, Height, 80.45, kg, 07/19/20 11:52:00 EDT, Dry Weight Start Date: 02/25/21 Stop Date: 08/24/21 Status: Ordered dolutegravir 50 mg oral tablet 1 tablet = 50 mg, By Mouth, Daily, # 30 tablet, 5 Refills, Maintenance, 02/25/21 10:37:00 EDT, Tablet, [facility], 163, cm, 07/23/20 13:59:00 [...] 01/28/21 17:12:00 EDT, Route to Pharmacy Electronically, [facility], 163, cm, 07/23/20 13:59:00 EDT, Height, 80.45, kg, 07/19/20 11:52:... Start Date: 01/28/21 Status: Ordered melatonin 5 mg oral tablet 1 tablet = 5 mg, By Mouth, Daily at bedtime, PRN for insomnia, # 60 tablet, 11 Refills, Maintenance, 05/16/21 3:02:00 EDT, Tablet, [facility], 163, cm, 07/23/20 13:59:00 EDT, Height,80.45, kg, 07/19/20 11:52:00 EDT, Dry Weight Start Date: 05/16/21 Status: Ordered metFORMIN 500 mg oral tablet 1 tablet = 500 mg, By Mouth, Daily, # 30 tablet, 11 Refills, Maintenance, 03/26/21 14:38:00 EDT, Tablet, [facility], 163, cm, 07/23/20 13:59:00 [...] 15:14:00 EST, 12/04/20 15:13:00 EST, REC Powder, [facility], Partial fill upon patient request if the prescription is for a schedule II opi... Start Date: 12/04/20 Stop Date: 09/05/21 Status: Ordered omeprazole 40 mg oral enteric coated capsule 1 capsule = 40 mg, By Mouth, 2 times a day, # 60 capsule, 11 Refills, Maintenance, 02/25/21 10:36:00 EDT, EC Capsule, [facility], dose increased, 163, cm, 07/23/20 [...] 11 Refills, Maintenance, 05/16/21 3:02:00 EDT, Tablet, [facility], 163, cm, 07/23/20 13:59:00 EDT, Height, 80.45, kg, 07/19/2011:52:00 EDT, Dry Weight Start Date: 05/16/21 Stop Date: 05/11/22 Status: Ordered Ventolin HFA 108 mcg/inh inhalation aerosol with adapter 2 puffs, Inhalation, Every 4 hours, PRN for wheezing, # 2 each, 5 Refills, Maintenance, 05/20/21 17:54:00 EDT, Aerosol, [facility], 163, cm, 07/23/20 13:59:00 [...] Active Heroin use(Confirmed) Active Opiate addiction(Confirmed) Active *[id number] Care Partn rell Eagle(Confirmed) Active Polysubstance abuse(Confirmed) Active PTSD (post-traumatic stress disorder)(Confirmed) Active Social History Social History Type Response Smoking Status Current every day sm oker; Type: Cigarettes; Other: 1/2 pk a day; Tobacco use times per day: 8 CIGS A DAY; Started at age: 15; entered on: 05/24/18 Sex
--- OUTSIDE RECORDS SUMMARY | 2023-05-22 15:34 | XMS_ITS | Continuity of Care Document ---
Author Name Unknown Organization [facility] Address [address] [place] [address]- Care Team Providers Care Plug Cutting Machine Operator Name Role Phone Fawn REAL, Joss Martin Primary Care Physician [place] [facility] [place] [facility] [place] [id number] Date(s): 07/14/22 - 08/13/22 [facility]/[address] [address]- Attending Physician: Mike Nuñez Admitting Physician: Mike [...] tablet, 11 Refills, Maintenance, 03/19/22 10:39:00 EDT, [facility], 164, cm, 05/23/21 15:48:00 EDT, Height, 73, kg, 05/23/21 15:48:00 EDT, DryWeight Start Date: 03/19/22 Status: Ordered cholecalciferol 1000 intl units oral tablet 1 tablet = 1,000 International_Units, By Mouth, Daily, # 30 tablet, 11 Refills, Maintenance, 08/29/21 10:17:00 EDT, Tablet, [facility], 164, cm, 05/23/21 15:48:00 EDT, Height, 73, kg, 05/23/21 15:48:00 EDT, Dry Weight Start Date: 08/29/21 Status: Ordered Descovy 200 mg-25 mg oral tablet 1 tablet, By Mouth, Daily, # 30 tablet, 0 Refills, Maintenance, 04/18/22 7:43:00 EDT, Tablet, [facility], 1 tablet By Mouth Daily,x30 days, 164, cm, 05/23/21 15:48:00 EDT, Height, 73, kg, 05/23/21 15:48:00 EDT, Dry Weight Start Date: 04/18/22 Stop Date: 05/18/22 Status: Ordered dolutegravir 50 mg oral tablet 1 tablet = 50 mg, By Mouth, Daily, # 30 tablet, 0 Refills, Maintenance, 04/18/22 7:44:00 EDT, Tablet, [facility], 164, cm, 05/23/21 15:48:00 [...] 02/15/22 12:19:00 EDT, Route to Pharmacy Electronically, [facility], 164, cm, 05/23/21 15:48:00 EDT, Height, 73, kg, 05/23/21 15:48:0... Start Date: 02/15/22 Status: Ordered melatonin 5 mg oral tablet 1 tablet = 5 mg, By Mouth, Daily at bedtime, PRN for insomnia, # 60 tablet, 4 Refills, Maintenance,07/08/22 13:18:00 EDT, Tablet, [facility], 164, cm, 05/23/21 15:48:00 EDT, Height,73, kg, 05/23/21 15:48:00 EDT, Dry Weight Start Date: 07/08/22 Status: Ordered metFORMIN 500 mg oral tablet 1 tablet = 500 mg, By Mouth, Daily, # 30 tablet, 4 Refills, Maintenance, 07/08/22 13:18:00 EDT, Tablet, [facility], 164, cm, 05/23/21 15:48:00 EDT, Height, [...] Refills, Maintenance, 03/19/22 10:38:00 EDT, EC Capsule, [facility], dose increased, 164, cm, 05/23/21 15:48:00 [...] 07/08/22 13:19:00 EDT, Route to Pharmacy Electronically, [facility], Partial fill upon patient request... Start [...] 4 Refills, Maintenance, 07/08/22 13:18:00 EDT, Tablet, [facility], 164, cm, 05/23/21 15:48:00 EDT, Height, 73, kg, 05/23/21 15:48:00 EDT, Dry Weight Start Date: 07/08/22 Stop Date: 12/05/22 Status: Ordered Ventolin HFA 108 mcg/inh inhalation aerosol with adapter 2 puffs, Inhalation, Every 4 hours, PRN for wheezing, # 2 each, 5 Refills, Maintenance, 12/12/21 15:20:00 EST, Aerosol, [facility], 164, cm, 05/23/21 15:48:00 EDT, Height, 73, kg, 05/23/21 15:48:00 EDT, Dry Weight Start Date: 12/12/21 Stop Date: 06/05/23 Status: Ordered Ventolin HFA 108 mcg/inh inhalation aerosol with adapter 2 puffs, Inhalation, Every 4 hours, PRN for wheezing, # 1 each, 0 Refills, Maintenance, 12/28/21 20:37:00 EST, [id number] 164, cm, 05/23/21 15:48:00 EDT, Height, 73, [...] use Confirmed Active Opiate addiction Confirmed Active *[id number] Production Intern Minoo Eagle Confirmed Active Polysubstance abuse Confirmed Active PTSD (post-traumatic stress disorder) Confirmed Active Social History Social History Type Response Smoking Status Current every day sm oker; Type: Cigarettes; Other: 1/2 pk a day; Tobacco use times per day: 8 CIGS A DAY; Started at age: 15; entered on: 05/24/18 Sex Patient Care team information Personnel Name: Joss Augustine MD Address: Address: [address] [place] [address]
--- OUTSIDE RECORDS SUMMARY | 2023-05-22 15:34 | XMS_ITS | Continuity of Care Document ---
Author Name Unknown Organization [facility] ter Address [address] [place] [address]- Care Team Providers Care Clinical Informaticist Name Role Phone Joss Augustine MD Primary Care Physician Encounter [facility] Date(s): 01/10/20 - 03/23/[address] [address]- [facility] Attending Physician: Danielle Morel MD Admitting Physician: Danielle Morel MD Referring Physician: Danielle Morel MD Allergies, Adverse Reactions, Alerts Substance Reaction [...] tablet, 11 Refills, Maintenance, 02/13/20 12:00:00 EDT, [facility], 163, cm, 12/30/19 [...] 5 Refills, Maintenance, 02/13/20 12:00:00 EDT, Tablet, [facility], 1 tablet By Mouth Daily,x30 days, 163, cm, 12/30/19 8:46:00 EST, Height, 81.1, kg, 12/23/19 11:40:00 EST, Dry Weight Start Date: 02/13/20 Stop Date: 08/11/20 Status: Ordered dolutegravir 50 mg oral tablet 1 tablet = 50 mg, By Mouth, Daily, # 30 tablet, 5 Refills, Maintenance, 11/28/19 12:15:00 EST, Tablet, [facility], 170, cm, 11/07/19 9:01:00 EST, Height, [...] 03/13/20 17:36:00 EDT, Route to Pharmacy Electronically, [facility], 163, cm, 12/30/19 8:46:00 EST, Height, [...] 11 Refills, Maintenance, 03/13/20 17:35:00 EDT, Tablet, [facility], 163, cm, 12/30/19 8:46:00 EST, Height, [...] Refills, Maintenance, 02/13/20 12:00:00 EDT, EC Capsule, [facility], dose increased, 163, cm, 12/30/19 [...] 5 Refills, Maintenance, 10/31/19 17:43:00 EST, Tablet, [facility], 170, cm, 10/17/19 16:41:00 EST, Height, 90, kg, 10/06/19 0:00:00 EST, Dry Weight Start Date: 10/31/19 Stop Date: 04/28/20 Status: Ordered Ventolin HFA 108 mcg/inh inhalation aerosol with adapter 2 puffs, Inhalation, Every 4 hours, PRN for wheezing, # 18 Gm, 5 Refills, Maintenance, 11/23/19 19:51:00 EST, Aerosol, [facility], 170, cm, 11/07/19 9:01:00 EST, Height, [...] Active Heroin use(Confirmed) Active Opiate addiction(Confirmed) Active *[id number]- [facility] Part ner Shahida Montelongo(Confirmed) Active Polysubstance abuse(Confirmed) Active PTSD (post-traumatic stress disorder)(Confirmed) Active Social History Social History Type Response Smoking Status 10 or more cigarette s (1/2 pack or more)/day in last 30 days entered on: 11/07/19 Sex
--- OUTSIDE RECORDS SUMMARY | 2023-05-22 15:34 | XMS_ITS | Continuity of Care Document ---
Author Name Unknown Organization [facility] Address [address] [place] [address]- Care Team Providers Care Spring Bender Name Role Phone Joss Augustine MD Primary Care Physician Encounter [facility] [place] Date(s): 11/22/19 - 12/02/19 [facility]/[address] [address]- [facility] Attending Physician: AdmMike tracy Admitting Physician: AdmtrMike Referring Physician: AdmtrMike Allergies, Adverse Reactions, Alerts [...] 02/08/20 15:38:54 EDT, 08/12/19 15:38:54 EDT, Tablet, [facility] Start Date: 08/12/19 Stop Date: 02/08/20 Status: Ordered Descovy 200 mg-25 mg oral tablet 1 tablet, By Mouth, Daily, # 30 tablet, 5 Refills, Maintenance, 11/28/19 15:38:00 EST, Tablet, [facility], 1 tablet By Mouth Daily,x30 days, 170, cm, 11/07/19 9:01:00 EST, Height, 90, kg, 10/06/19 0:00:00 EST, Dry Weight Start Date: 11/28/19 Stop Date: 05/26/20 Status: Ordered dolutegravir 50 mg oral tablet 1 tablet = 50 mg, By Mouth, Daily, for 30 days, # 30 tablet, 5 Refills, Hard Stop 02/05/20 12:01:56EDT, 08/09/19 12:01:56 EDT, Tablet, [facility] Start Date: 08/09/19 Stop Date: 02/05/20 Status: Ordered dolutegravir 50 mg oral tablet 1 tablet = 50 mg, By Mouth, Daily, # 30 tablet, 5 Refills, Maintenance, 11/28/19 12:15:00 EST, Tablet, [facility], 170, cm, 11/07/19 9:01:00 EST, [...] 10/17/19 17:05:00 EST, Route to Pharmacy Electronically, [facility], 170, cm, 10/17/19 16:41:00 EST, Height, 90, [...] 300 mg, Subcutaneous Infusion, Every 28 days, [id number] [place]on Patient to continue 300 mg reassess in 2 months diagnosis: F11.2, # 1 Doses, 1 Refills, Maintenance, 09/27/19 17:03:20 EST Start Date: 09/27/19 Status: Ordered Suboxone 8 mg-2 mg sublingual film 2 each, Sublingual, Daily, [id number] [place] dissolve under the tongue fill on/after 11/22/2019 CHEMICAL HANDLER verified, # 14 film, 0 Refills, Maintenance, 11/18/19 12:55:00 EST, [facility], 2 each Sublingual Daily,x7 days,Instr:[id number]... Start Date: 11/18/19 Stop Date: 11/25/19 Status: Ordered Suboxone 8 mg-2 mg sublingual film 2 each, Sublingual, Daily, [id number] [place] dissolve under the tongue fill on/after 10/17/2019 CHEMICAL HANDLER verified, # 14 each, 0 Refills, Maintenance, 10/17/19 16:55:00 EST, [facility], 2 each Sublingual Daily,x7 days,Instr:[id number]... Start Date: 10/17/19 Stop Date: 10/24/19 Status: Ordered topiramate 50 mg oral tablet 1 tablet = 50 mg, By Mouth, 2 times a day, # 60 tablet, 5 Refills, Maintenance, 10/31/19 17:43:00 EST, Tablet, [facility], 170, cm, 10/17/19 16:41:00 EST, Height, 90, kg, 10/06/19 0:00:00 EST, Dry Weight Start Date: 10/31/19 Stop Date: 04/28/20 Status: Ordered Ventolin HFA 108 mcg/inh inhalation aerosol with adapter 2 puffs, Inhalation, Every 4 hours, PRN for wheezing, # 18 Gm, 5 Refills, Maintenance, 11/23/19 19:51:00 EST, Aerosol, [facility], 170, cm, 11/07/19 9:01:00 EST, Height, [...] Active Heroin use(Confirmed) Active Opiate addiction(Confirmed) Active *[id number]- Care Part ner Shahida Montelongo(Confirmed) Active PTSD (post-traumatic stress disorder)(Confirmed) Active Social History Social History Type Response Smoking Status 10 or more cigarette s (1/2 pack or more)/day in last 30 days entered on: 11/07/19 Sex
--- OUTSIDE RECORDS SUMMARY | 2023-05-22 15:34 | XMS_ITS | Continuity of Care Document ---
Author Name Unknown Organization [facility] Address [address] [place] [address]- Care Team Providers Care Grill Attendant Name Role Phone Joss Augustine MD Primary Care Physician Encounter [facility] [place] Date(s): 09/07/19 - 10/12/19 [facility]/[address] [address]- [facility] Attending Physician: Joss Augustine MD Admitting [...] Instructions Replace Required Details, Route to PharmacyElectronically, NCPDP[facility][id number], [facility] Start Date: 05/17/19 Status: Ordered HAND BRACE [...] thoroughly af... Start Date: 07/01/19 Status: Ordered melatonin 5 mg oral tablet [...] 300 mg, Subcutaneous Infusion, Every 28 days, [id number] Marvin Patient to continue 300 mg reassess in 2 months diagnosis: F11.2, # 1 Doses, 1 Refills, Maintenance, 09/27/19 17:03:20 EST Start Date: 09/27/19 Status: Ordered Suboxone 8 mg-2 mg sublingual film 2 each, Sublingual, Daily, [id number] [place]on dissolve under the tongue fill on/after 10/12/2019 HIGH SCHOOL COORDINATOR verified, # 6 film, 0 Refills, Maintenance, 10/10/19 12:26:00 EST, [facility],2 each Sublingual Daily,x3 days,Instr:[id number]... Start Date: 10/10/19 Stop Date: 10/13/19 Status: Ordered topiramate 50 mg oral tablet [...] Active Heroin use(Confirmed) Active Opiate addiction(Confirmed) Active *[id number]- [facility] Part ner Shahida Montelongo(Confirmed) Active PTSD (post-traumatic stress disorder)(Confirmed) Active Social History Social History Type Response Smoking Status Current every day sm oker; Type: Cigarettes; Other: 1/2 pk a day; Tobacco use times per day: 8 CIGS A DAY; Started at age: 15; entered on: 05/24/18 Sex
--- OUTSIDE RECORDS SUMMARY | 2023-05-22 15:34 | XMS_ITS | Continuity of Care Document ---
Author Name Unknown Organization [facility] Address [address] [place] [address]- Care Team Providers Care Computer Operations Technician Name Role Phone Joss Augustine MD Primary Care Physician [place] [facility] [place] - 05/16/21 [facility] [place] [address]- Attending Physician: Zhou Fisher MD Admitting Physician: Zhou Fisher MD Allergies, Adverse Reactions, Alerts Substance Reaction [...] tablet, 11 Refills, Maintenance, 02/25/21 10:33:00 EDT, [facility], 163, cm, 07/23/20 13:59:00 EDT, Height, 80.45, kg, 07/19/20 11:52:00 EDT, Dry Weight Start Date: 02/25/21 Status: Ordered cholecalciferol 1000 intl units oral tablet 1 tablet = 1,000 International_Units, By Mouth, Daily, # 30 tablet, 11 Refills, Maintenance, 07/23/20 17:03:00 EDT, Tablet, Trish [id number] ([facility]), 163, cm, 07/23/20 13:59:00 EDT, Height, 80.45, kg, 07/19/20 11:52:00 EDT, Dry Weight Start Date: 07/23/20 Status: Ordered Descovy 200 mg-25 mg oral tablet 1 tablet, By Mouth, Daily, # 30 tablet, 5 Refills, Maintenance, 02/25/21 10:37:00 EDT, Tablet, [facility], 1 tablet By Mouth Daily,x30 days, 163, cm, 07/23/20 13:59:00 EDT, Height, 80.45, kg, 07/19/20 11:52:00 EDT, Dry Weight Start Date: 02/25/21 Stop Date: 08/24/21 Status: Ordered dolutegravir 50 mg oral tablet 1 tablet = 50 mg, By Mouth, Daily, # 30 tablet, 5 Refills, Maintenance, 02/25/21 10:37:00 EDT, Tablet, [facility], 163, cm, 07/23/20 13:59:00 [...] 01/28/21 17:12:00 EDT, Route to Pharmacy Electronically, [facility], 163, cm, 07/23/20 13:59:00 EDT, Height, 80.45, kg, 07/19/20 11:52:... Start Date: 01/28/21 Status: Ordered melatonin 5 mg oral tablet 1 tablet = 5 mg, By Mouth, Daily at bedtime, PRN for insomnia, # 60 tablet, 11 Refills, Maintenance, 05/16/21 3:02:00 EDT, Tablet, [facility], 163, cm, 07/23/20 13:59:00 EDT, Height,80.45, kg, 07/19/20 11:52:00 EDT, Dry Weight Start Date: 05/16/21 Status: Ordered metFORMIN 500 mg oral tablet 1 tablet = 500 mg, By Mouth, Daily, # 30 tablet, 11 Refills, Maintenance, 03/26/21 14:38:00 EDT, Tablet, [facility], 163, cm, 07/23/20 13:59:00 EDT, [...] 15:14:00 EST, 12/04/20 15:13:00 EST, REC Powder, [facility], Partial fill upon patient request if the prescription is for a schedule II opi... Start Date: 12/04/20 Stop Date: 09/05/21 Status: Ordered omeprazole 40 mg oral enteric coated capsule 1 capsule = 40 mg, By Mouth, 2 times a day, # 60 capsule, 11 Refills, Maintenance, 02/25/21 10:36:00 EDT, EC Capsule, [facility], dose increased, 163, cm, 07/23/20 [...] 11 Refills, Maintenance, 05/16/21 3:02:00 EDT, Tablet, [facility], 163, cm, 07/23/20 13:59:00 EDT, Height, 80.45, kg, 07/19/2011:52:00 EDT, Dry Weight Start Date: 05/16/21 Stop Date: 05/11/22 Status: Ordered Ventolin HFA 108 mcg/inh inhalation aerosol with adapter 2 puffs, Inhalation, Every 4 hours, PRN for wheezing, # 3 each, 3 Refills, Maintenance, 12/26/20 12:47:00 EST, Aerosol, [facility], 163, cm, 07/23/20 13:59:00 [...] Active Heroin use(Confirmed) Active Opiate addiction(Confirmed) Active *[phone] Care Partn rell Eagle(Confirmed) Active Polysubstance abuse(Confirmed) Active PTSD (post-traumatic stress disorder)(Confirmed) Active Social History Social History Type Response Smoking Status 10 or more cigarette s (1/2 pack or more)/day in last 30 days; Tobacco user in household: Yes entered on: 07/19/20 Sex
--- OUTSIDE RECORDS SUMMARY | 2023-05-22 15:35 | XMS_ITS | Continuity of Care Document ---
Author Name Unknown Organization [facility] Address [address] [place] [address]- Care Team Providers Care Cotton Ginner Name Role Phone Joss Augustine MD Primary Care Physician Encounter [facility] [place] Date(s): 01/02/20 - 02/02/20 [facility]/[address] [address]- [facility] Attending Physician: Joss Augustine MD Admitting [...] 5 Refills, Maintenance, 11/28/19 15:38:00 EST, Tablet, [facility], 1 tablet By Mouth Daily,x30 days, 170, cm, 11/07/19 9:01:00 EST, Height, 90, kg, 10/06/19 0:00:00 EST, Dry Weight Start Date: 11/28/19 Stop Date: 05/26/20 Status: Ordered dolutegravir 50 mg oral tablet 1 tablet = 50 mg, By Mouth, Daily, # 30 tablet, 5 Refills, Maintenance, 11/28/19 12:15:00 EST, Tablet, [facility], 170, cm, 11/07/19 9:01:00 EST, [...] 5 Refills, Maintenance, 10/31/19 17:43:00 EST, Tablet, [facility], 170, cm, 10/17/19 16:41:00 EST, Height, 90, kg, 10/06/19 0:00:00 EST, Dry Weight Start Date: 10/31/19 Stop Date: 04/28/20 Status: Ordered Ventolin HFA 108 mcg/inh inhalation aerosol with adapter 2 puffs, Inhalation, Every 4 hours, PRN for wheezing, # 18 Gm, 5 Refills, Maintenance, 11/23/19 19:51:00 EST, Aerosol, [facility], 170, cm, 11/07/19 9:01:00 EST, Height, [...] Active Heroin use(Confirmed) Active Opiate addiction(Confirmed) Active *[phone]- Care Part ner Shahida Montelongo(Confirmed) Active Polysubstance abuse(Confirmed) Active PTSD (post-traumatic stress disorder)(Confirmed) Active Social History Social History Type Response Smoking Status 10 or more cigarette s (1/2 pack or more)/day in last 30 days entered on: 11/07/19 Sex
--- OUTSIDE RECORDS SUMMARY | 2023-05-22 15:35 | XMS_ITS | Continuity of Care Document ---
Author Name Unknown Organization [facility] Address [address] [place] [id number]- Care Team Providers Care Senior Java Engineer Name Role Phone Joss Augustine MD Primary Care Physician Encounter [facility] [place] Date(s): 07/13/20 - 08/17/20 [facility] [place] [address] [address]- [facility] Attending Physician: Joss Augustine MD Admitting [...] tablet, 11 Refills, Maintenance, 02/13/20 12:00:00 EDT, [facility], 163, cm, 12/30/19 8:46:00 EST, Height, 81.1, kg, 12/23/19 11:40:00 EST, Dry Weight Start Date: 02/13/20 Status: Ordered cholecalciferol 1000 intl units oral tablet 1 tablet = 1,000 International_Units, By Mouth, Daily, # 30 tablet, 11 Refills, Maintenance, 07/23/20 17:03:00 EDT, Tablet, Trish [id number] ([facility] 827), 163, cm, 07/23/20 13:59:00 EDT, Height, 80.45, kg, 07/19/20 11:52:00 EDT, Dry Weight Start Date: 07/23/20 Status: Ordered Descovy 200 mg-25 mg oral tablet 1 tablet, By Mouth, Daily, # 30 tablet, 5 Refills, Maintenance, 02/13/20 12:00:00 EDT, Tablet, [facility], 1 tablet By Mouth Daily,x30 days, 163, cm, 12/30/19 8:46:00 EST, Height, 81.1, kg, 12/23/19 11:40:00 EST, Dry Weight Start Date: 02/13/20 Stop Date: 08/11/20 Status: Ordered dolutegravir 50 mg oral tablet 1 tablet = 50 mg, By Mouth, Daily, # 30 tablet, 5 Refills, Maintenance, 06/19/20 11:52:00 EDT, Tablet, [facility], 163, cm, 12/30/19 8:46:00 EST, [...] EDT, Route to Pharmacy Electronically, Trish [id number] ([facility]), 163, cm, 07/23/20 13:59:00 EDT, Height, 80.45, kg, 07/19/20 1... Start Date: 07/23/20 Status: Ordered melatonin 5 mg oral tablet 1 tablet = 5 mg, By Mouth, Daily at bedtime, PRN for insomnia, # 60 tablet, 11 Refills, Maintenance, 05/14/20 14:54:00 EDT, Tablet, [facility], 163, cm, 12/30/19 8:46:00 EST, Height,81.1, kg, 12/23/19 11:40:00 EST, Dry Weight Start Date: 05/14/20 Status: Ordered metFORMIN 500 mg oral tablet 1 tablet = 500 mg, By Mouth, Daily, # 30 tablet, 11 Refills, Maintenance, 03/13/20 17:35:00 EDT, Tablet, [facility], 163, cm, 12/30/19 8:46:00 EST, [...] Refills, Maintenance, 02/13/20 12:00:00 EDT, EC Capsule, [facility], dose increased, 163, [...] 11 Refills, Maintenance, 05/14/20 14:54:00 EDT, Tablet, [facility], 163, cm, 12/30/19 8:46:00 EST, Height, 81.1, kg, 12/23/19 11:40:00 EST, Dry Weight Start Date: 05/14/20 Stop Date: 05/09/21 Status: Ordered Ventolin HFA 108 mcg/inh inhalation aerosol with adapter 2 puffs, Inhalation, Every 4 hours, PRN for wheezing, # 3 each, 3 Refills, Maintenance, 04/21/20 8:52:00 EDT, Aerosol, [facility], 163, cm, 12/30/19 8:46:00 EST, [...] Active Heroin use(Confirmed) Active Opiate addiction(Confirmed) Active *[id number]- [facility] Part ner Shahidaluz marina Montelongo(Confirmed) Active Polysubstance abuse(Confirmed) Active PTSD (post-traumatic stress disorder)(Confirmed) Active Social History Social History Type Response Smoking Status 10 or more cigarette s (1/2 pack or more)/day in last 30 days; Tobacco user in household: Yes entered on: 07/19/20 Sex
--- OUTSIDE RECORDS SUMMARY | 2023-05-22 15:35 | XMS_ITS | Continuity of Care Document ---
Author Name Unknown Organization [facility] Address [address] [place] [address]- Care Team Providers Care Professor Of Exercise Science Name Role Phone Joss Augustine MD Primary Care Physician Encounter [facility] Date(s): 05/23/21 - 05/23/[address] [address]- Encounter Diagnosis Cellulitis(Final) - 05/23/21 Discharge Disposition: A-D/C Home Attending Physician: Partha Wallis MD Admitting Physician: Partha Wallis MD Referring Physician: Not on Staff, Referring [...] tablet, 11 Refills, Maintenance, 02/25/21 10:33:00 EDT, [facility], 163, cm, 07/23/20 13:59:00 EDT, Height, 80.45, kg, 07/19/20 11:52:00 EDT, Dry Weight Start Date: 02/25/21 Status: Ordered cholecalciferol 1000 intl units oral tablet 1 tablet = 1,000 International_Units, By Mouth, Daily, # 30 tablet, 11 Refills, Maintenance, 07/23/20 17:03:00 EDT, Tablet, [facility] [id number] [facility] 163, cm, 07/23/20 13:59:00 EDT, Height, 80.45, kg, 07/19/20 11:52:00 EDT, Dry Weight Start Date: 07/23/20 Status: Ordered Descovy 200 mg-25 mg oral tablet 1 tablet, By Mouth, Daily, # 30 tablet, 5 Refills, Maintenance, 02/25/21 10:37:00 EDT, Tablet, [facility], 1 tablet By Mouth Daily,x30 days, 163, cm, 07/23/20 13:59:00 EDT, Height, 80.45, kg, 07/19/20 11:52:00 EDT, Dry Weight Start Date: 02/25/21 Stop Date: 08/24/21 Status: Ordered dolutegravir 50 mg oral tablet 1 tablet = 50 mg, By Mouth, Daily, # 30 tablet, 5 Refills, Maintenance, 02/25/21 10:37:00 EDT, Tablet, [facility], 163, cm, 07/23/20 13:59:00 [...] 01/28/21 17:12:00 EDT, Route to Pharmacy Electronically, [facility], 163, cm, 07/23/20 13:59:00 EDT, Height, 80.45, kg, 07/19/20 11:52:... Start Date: 01/28/21 Status: Ordered Keflex monohydrate 500 mg oral capsule 1 capsule = 500 mg, By Mouth, 4 times a day, for 7 days, # 28 capsule, 0 Refills, Acute 05/30/21 19:53:00 EDT, 05/23/21 19:53:00 EDT, Capsule, Partial fill upon patient request if the prescription isfor a schedule II opioid drug. Start Date: 05/23/21 Stop Date: 05/30/21 Status: Ordered melatonin 5 mg oral tablet 1 tablet = 5 mg, By Mouth, Daily at bedtime, PRN for insomnia, # 60 tablet, 11 Refills, Maintenance, 05/16/21 3:02:00 EDT, Tablet, [facility], 163, cm, 07/23/20 13:59:00 EDT, Height,80.45, kg, 07/19/20 11:52:00 EDT, Dry Weight Start Date: 05/16/21 Status: Ordered metFORMIN 500 mg oral tablet 1 tablet = 500 mg, By Mouth, Daily, # 30 tablet, 11 Refills, Maintenance, 03/26/21 14:38:00 EDT, Tablet, [facility], 163, cm, 07/23/20 13:59:00 [...] 15:14:00 EST, 12/04/20 15:13:00 EST, REC Powder, [facility], Partial fill upon patient request if the prescription is for a schedule II opi... Start Date: 12/04/20 Stop Date: 09/05/21 Status: Ordered omeprazole 40 mg oral enteric coated capsule 1 capsule = 40 mg, By Mouth, 2 times a day, # 60 capsule, 11 Refills, Maintenance, 02/25/21 10:36:00 EDT, EC Capsule, [facility], dose increased, 163, cm, 07/23/20 13:59:00 [...] 11 Refills, Maintenance, 05/16/21 3:02:00 EDT, Tablet, [facility], 163, cm, 07/23/20 13:59:00 EDT, Height, 80.45, kg, 07/19/2011:52:00 EDT, Dry Weight Start Date: 05/16/21 Stop Date: 05/11/22 Status: Ordered Ventolin HFA 108 mcg/inh inhalation aerosol with adapter 2 puffs, Inhalation, Every 4 hours, PRN for wheezing, # 2 each, 5 Refills, Maintenance, 05/20/21 17:54:00 EDT, Aerosol, [facility], 163, cm, 07/23/20 13:59:00 [...] Active Heroin use(Confirmed) Active Opiate addiction(Confirmed) Active *[phone] Care Partn er Minoo Eagle(Confirmed) Active Polysubstance abuse(Confirmed) Active PTSD (post-traumatic stress disorder)(Confirmed) Active Vital Signs Most recent to oldest [Reference Range]: 1 2 Height 164 cm (05/23/21 3:48 PM) Weight 73 kg (05/23/21 3:48 PM) Oxygen Saturation [94-100 %] 100 % (05/23/21 7:46 PM) 100 % (05/23/21 3:48 PM) Pulse Rate [55-90 bpm] 61 bpm (05/23/21 7:46 PM) 61 bpm (05/23/21 3:48 PM) Blood Pressure [90-138/55-84 mm Hg] 124/ 82mm Hg (05/23/21 7:46 PM) 112/65mm Hg (05/23/21 3:48 PM) Respiratory Rate [16-30 br/min] 16 br/mi n (05/23/21 7:46 PM) 16 br/min (05/23/21 3:48 PM) Temperature [96.8-100.4 DegF] 98.3 DegF (05/23/21 3:48 PM) Mode of Delivery (Oxygen) Room air (05/23/21 7:46 PM) Room air (05/23/21 3:48 PM) Blood pressure sites Arm, right (05/23/21 7:46 PM) Arm, left (05/23/21 3:48 PM) Temperature Route Oral (05/23/21 3:48 PM) Dry Weight 73 kg (05/23/21 3:48 PM) Weight Obtained Via Standing scale (05/23/21 3:48 PM) Dry Weight Obtained Via Standing scale (05/23/21 3:48 PM) Social History Social History Type Response Smoking Status Current every day radha guthrie; Type: Cigarettes; Other: 1/2 pk a day; Tobacco use times per day: 8 CIGS A DAY; Started at age: 15; entered on: 05/24/18 Sex
--- OUTSIDE RECORDS SUMMARY | 2023-05-22 15:35 | XMS_ITS | Continuity of Care Document ---
Author Name Unknown Organization [facility] Address [address] [place] [address]- Care Team Providers Care Bookmobile Clerk Name Role Phone Joss Augustine MD Primary Care Physician [place] [facility] [place] 12[place]07/[place] [facility]/[address] [address]- [facility] Attending Physician: Romelia Wong MD [...] 02/08/20 15:38:54 EDT, 08/12/19 15:38:54 EDT, Tablet, [facility] Start Date: 08/12/19 Stop Date: 02/08/20 Status: Ordered Descovy 200 mg-25 mg oral tablet 1 tablet, By Mouth, Daily, # 30 tablet, 5 Refills, Maintenance, 11/28/19 15:38:00 EST, Tablet, [facility], 1 tablet By Mouth Daily,x30 days, 170, cm, 11/07/19 9:01:00 EST, Height, 90, kg, 10/06/19 0:00:00 EST, Dry Weight Start Date: 11/28/19 Stop Date: 05/26/20 Status: Ordered dolutegravir 50 mg oral tablet 1 tablet = 50 mg, By Mouth, Daily, for 30 days, # 30 tablet, 5 Refills, Hard Stop 02/05/20 12:01:56EDT, 08/09/19 12:01:56 EDT, Tablet, [facility] Start Date: 08/09/19 Stop Date: 02/05/20 Status: Ordered dolutegravir 50 mg oral tablet 1 tablet = 50 mg, By Mouth, Daily, # 30 tablet, 5 Refills, Maintenance, 11/28/19 12:15:00 EST, Tablet, [facility], 170, cm, 11/07/19 9:01:00 [...] 10/17/19 17:05:00 EST, Route to Pharmacy Electronically, [facility], 170, cm, 10/17/19 16:41:00 EST, Height, [...] 300 mg, Subcutaneous Infusion, Every 28 days, [id number] Eagleson Patient to continue 300 mg reassess in 2 months diagnosis: F11.2, # 1 Doses, 1 Refills, Maintenance, 09/27/19 17:03:20 EST Start Date: 09/27/19 Status: Ordered Suboxone 8 mg-2 mg sublingual film 2 each, Sublingual, Daily, [id number] Eagleson dissolve under the tongue fill on/after 11/22/2019 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 Start Date: 10/17/19 Stop Date: 10/24/19 Status: Ordered topiramate 50 mg oral tablet 1 tablet = 50 mg, By Mouth, 2 times a day, # 60 tablet, 5 Refills, Maintenance, 10/31/19 17:43:00 EST, Tablet, [facility], 170, cm, 10/17/19 16:41:00 EST, Height, 90, kg, 10/06/19 0:00:00 EST, Dry Weight Start Date: 10/31/19 Stop Date: 04/28/20 Status: Ordered Ventolin HFA 108 mcg/inh inhalation aerosol with adapter 2 puffs, Inhalation, Every 4 hours, PRN for wheezing, # 18 Gm, 5 Refills, Maintenance, 11/23/19 19:51:00 EST, Aerosol, [facility], 170, cm, 11/07/19 9:01:00 EST, Height, [...] Active Heroin use(Confirmed) Active Opiate addiction(Confirmed) Active *[id number]- [facility] Part ner Shahida Montelongo(Confirmed) Active PTSD (post-traumatic stress disorder)(Confirmed) Active Social History Social History Type Response Smoking Status 10 or more cigarette s (1/2 pack or more)/day in last 30 days entered on: 11/07/19 Sex
--- OUTSIDE RECORDS SUMMARY | 2023-05-22 15:35 | XMS_ITS | Continuity of Care Document ---
Author Name Unknown Organization [facility] Address [address] [place] [address]- Care Team Providers Care Heat Plant Specialist Name Role Phone Joss Augustine MD Primary Care Physician Encounter [facility] [place] Date(s): 01/19/23 - 03/21/23 [facility] [address]- Attending Physician: Not on Staff, Attending MD Allergies, Adverse Reactions, Alerts No Known Allergies Immunizations Given and Recorded Vaccine Date Status Refusal Reason [id number] 12y+ bivalent booster vax 09/29/22 Given influenza [...] tablet, 0 Refills, Maintenance, 02/13/23 13:17:00 EDT, [facility], 164, cm, 01/19/23 15:23:00 EDT, Height, 68.18, kg, 01/15/23 10:48:00 EDT, . Start Date: 02/13/23 Stop Date: 10/26/24 Status: Ordered albuterol 0.083% inhalation solution 3 mL = 2.5 mg, Inhalation, Every 6 hours, PRN for wheezing, home delivery, # 25 each, 2 Refills, Maintenance, 01/01/23 9:12:00 EST, Solution, [facility], 164, cm, 01/01/23 8:52:00 [...] tablet, 11 Refills, Maintenance, 03/19/22 10:39:00 EDT, [facility], 164, cm, 05/23/21 15:48:00 EDT, Height, 73, kg, 05/23/21 15:48:00 EDT, DryWeight Start Date: 03/19/22 Status: Ordered cholecalciferol 1000 intl units oral tablet 1 tablet = 1,000 International_Units, By Mouth, Daily, # 30 tablet, 11 Refills, Maintenance, 02/18/23 7:13:00 EDT, Tablet, [facility], 164, cm, 01/19/23 15:23:00 EDT, Height, 68.18, kg, 01/15/23 10:48:00 EDT, Dry Weight Start Date: 02/18/23 Status: Ordered Descovy 200 mg-25 mg oral tablet 1 tablet, By Mouth, Daily, # 30 tablet, 3 Refills, Maintenance, 11/18/22 18:13:00 EST, Tablet, [facility], 1 tablet By Mouth Daily,x30 days, 164, cm, 11/18/22 16:28:00 EST, Height, 73, kg, 05/23/21 15:48:00 EDT, Dry Weight Start Date: 11/18/22 Stop Date: 03/18/23 Status: Ordered dolutegravir 50 mg oral tablet 1 tablet = 50 mg, By Mouth, Daily, # 30 tablet, 3 Refills, Maintenance, 11/18/22 18:13:00 EST, Tablet, [facility], 164, cm, 11/18/22 16:28:00 EST, Height, 73, kg, 05/23/21 15:48:00 EDT, Dry Weight Start Date: 11/18/22 Stop Date: 03/18/23 Status: Ordered Flonase 50 mcg/inh nasal spray 1 sprays, Nares, Both, 2 times a day, # 16 Gm, 0 Refills, Maintenance, 01/01/23 9:25:00 EST, [place],[facility], Partial fill upon patient request [...] tablet, 4 Refills, Maintenance,07/08/22 13:18:00 EDT, Tablet, [facility], 164, cm, 05/23/21 15:48:00 EDT, Height,73, kg, 05/23/21 15:48:00 EDT, Dry Weight Start Date: 07/08/22 Status: Ordered metFORMIN 500 mg oral tablet 1 tablet = 500 mg, By Mouth, Daily, # 30 tablet, 4 Refills, Maintenance, 12/18/22 16:42:00 EST, Tablet, [facility], 164, cm, 11/18/22 16:28:00 EST, [...] Gm, 3 Refills, Maintenance, 01/19/23 14:48:00 EDT, [facility], For constipation: one capful by mouth, every day, tit... Start Date: 01/19/23 Status: Ordered mirtazapine 15 mg oral tablet 1 tablet = 15 mg, By Mouth, Daily at bedtime, # 90 tablet, 1 Refills, Maintenance, 01/16/23 11:22:00 EDT, Tablet, [facility], Partial fill upon patient request if the prescription isfor a schedule II opioid drug., 164, cm, 01/15/23 1... Start Date: 01/16/23 Stop Date: 02/15/23 Status: Ordered nicotine 14 mg/24 hr transdermal film, extended release 1 patch, Topically, Daily, # 30 patch, 1 Refills, Maintenance, 02/23/23 4:50:00 EDT, Patch, [facility], Partial fill upon patient request if the prescription is for a schedule II opioid drug., 1 patch Topically Daily, 164, cm, ... Start Date: 02/23/23 Status: Ordered omeprazole 40 mg oral enteric coated capsule 1 capsule = 40 mg, By Mouth, 2 times a day, # 60 capsule, 11 Refills, Maintenance, 03/19/22 10:38:00 EDT, EC Capsule, [facility], dose increased, 164, cm, 05/23/21 [...] capsule, 1 Refills, Maintenance, 01/16/23 11:21:00 EDT, [facility], Partial fill upon patient request [...] 01/15/23 11:16:00 EDT, Route to Pharmacy Electronically, [facility], Partial fill upon patient request... Start Date: 01/15/23 Stop Date: 06/14/23 Status: Ordered sertraline 50 mg oral tablet 1 tablet = 50 mg, By Mouth, Daily, # 90 tablet, 1 Refills, Maintenance, 01/01/23 17:40:00 EST, Tablet, [facility], Partial fill upon patient request if the prescription is for a schedule II opioid drug., 164, cm, 01/01/23 8:52:00 EST,... Start Date: 01/01/23 Status: Ordered topiramate 50 mg oral tablet 1 tablet = 50 mg, By Mouth, 2 times a day, # 60 tablet, 7 Refills, Maintenance, 01/15/23 11:16:00 EDT, Tablet, [facility], 164, cm, 01/15/23 10:48:00 EDT, Height, 68.18, kg, 01/15/2310:48:00 EDT, Dry Weight Start Date: 01/15/23 Stop Date: 09/12/23 Status: Ordered Ventolin HFA 108 mcg/inh inhalation aerosol with adapter 2 puffs, Inhalation, Every 4 hours, PRN for wheezing, # 2 each, 5 Refills, Maintenance, 01/15/23 11:10:00 EDT, Aerosol, [facility], 164, cm, 01/15/23 10:48:00 EDT, [...] use Confirmed Active Opiate addiction Confirmed Active *[id number] Clinical Law Professor Marcella Sargent Confirmed Active Breast cancer screening Confirmed Active Polysubstance abuse Confirmed Active PTSD (post-traumatic stress disorder) Confirmed Active Social History Social History Type Response Smoking Status 10 or more cigarette s (1/2 pack or more)/day in last 30 days; Other: pack a day; entered on: 11/18/22 Sex Patient Care team information Care Team Personnel Name: Too MARINO, Raina Donahue Position: [facility] Associate Professional Member Role: Primary Care Nurse Address: Address: [address] [place] [address]- Name: Joss Augustine MD Position: [facility] Physician - Primary Care Member Role: PCP Address: Address: [address] [place] [id number]- Name: Radha Murillo RN Position: [facility] Security Messenger Member Role: Primary Care Nurse Care Team Related Persons Name: SARWAT PEARL Address: home [address] [place] [address] Name: CRYSTAL PEARL Address: [address] [place] [address] Name: DARRICK RENEE
--- OUTSIDE RECORDS SUMMARY | 2023-05-22 15:35 | XMS_ITS | Continuity of Care Document ---
Author Name Unknown Organization [facility] Address Unknown Care Team Providers Care Hand Spray Operator Name Role Phone Joss Augustine MD Primary Care Physician Encounter [facility] [place] Date(s): 03/26/22 - 05/15/22 [facility] Attending Physician: Joss Augustine MD Admitting [...] 03/19/22 10:39:00 EDT, [facility], 164, cm, 05/23/21 15:48:00 EDT, Height, 73, kg, 05/23/21 15:48:00 EDT, DryWeight Start Date: 03/19/22 Status: Ordered cholecalciferol 1000 intl units oral tablet 1 tablet = 1,000 International_Units, By Mouth, Daily, # 30 tablet, 11 Refills, Maintenance, 08/29/21 10:17:00 EDT, Tablet, [facility], 164, cm, 05/23/21 15:48:00 EDT, Height, 73, kg, 05/23/21 15:48:00 EDT, Dry Weight Start Date: 08/29/21 Status: Ordered Descovy 200 mg-25 mg oral tablet 1 tablet, By Mouth, Daily, # 30 tablet, 0 Refills, Maintenance, 04/18/22 7:43:00 EDT, Tablet, [facility], 1 tablet By Mouth Daily,x30 days, 164, cm, 05/23/21 15:48:00 EDT, Height, 73, kg, 05/23/21 15:48:00 EDT, Dry Weight Start Date: 04/18/22 Stop Date: 05/18/22 Status: Ordered dolutegravir 50 mg oral tablet 1 tablet = 50 mg, By Mouth, Daily, # 30 tablet, 0 Refills, Maintenance, 04/18/22 7:44:00 EDT, Tablet, [facility], 164, cm, 05/23/21 15:48:00 EDT, [...] 02/15/22 12:19:00 EDT, Route to Pharmacy Electronically, [facility], 164, cm, 05/23/21 15:48:00 EDT, Height, 73, kg, 05/23/21 15:48:0... Start Date: 02/15/22 Status: Ordered melatonin 5 mg oral tablet 1 tablet = 5 mg, By Mouth, Daily at bedtime, PRN for insomnia, # 60 tablet, 11 Refills, Maintenance, 05/16/21 3:02:00 EDT, Tablet, [facility], 163, cm, 07/23/20 13:59:00 EDT, Height,80.45, kg, 07/19/20 11:52:00 EDT, Dry Weight Start Date: 05/16/21 Status: Ordered metFORMIN 500 mg oral tablet 1 tablet = 500 mg, By Mouth, Daily, # 30 tablet, 11 Refills, Maintenance, 04/18/22 7:43:00 EDT, Tablet, [facility], 164, cm, 05/23/21 15:48:00 EDT, Height, 73, kg, 05/23/21 15:48:00 EDT, Dry Weight Start Date: 04/18/22 Status: Ordered Methadone = 20 mg, By Mouth, Daily, 0 Refills, Maintenance, 12/23/19 16:27:00 EST, Partial fill upon patient request Start Date: 12/23/19 Status: Ordered omeprazole 40 mg oral enteric coated capsule 1 capsule = 40 mg, By Mouth, 2 times a day, # 60 capsule, 11 Refills, Maintenance, 03/19/22 10:38:00 EDT, EC Capsule, [facility], dose increased, 164, cm, 05/23/21 15:48:00 [...] 11 Refills, Maintenance, 05/16/21 3:02:00 EDT, Tablet, [facility], 163, cm, 07/23/20 13:59:00 EDT, Height, 80.45, kg, 07/19/2011:52:00 EDT, Dry Weight Start Date: 05/16/21 Stop Date: 05/11/22 Status: Ordered Ventolin HFA 108 mcg/inh inhalation aerosol with adapter 2 puffs, Inhalation, Every 4 hours, PRN for wheezing, # 2 each, 5 Refills, Maintenance, 12/12/21 15:20:00 EST, Aerosol, [facility], 164, cm, 05/23/21 15:48:00 EDT, Height, 73, kg, 05/23/21 15:48:00 EDT, Dry Weight Start Date: 12/12/21 Stop Date: 06/05/23 Status: Ordered Ventolin HFA 108 mcg/inh inhalation aerosol with adapter 2 puffs, Inhalation, Every 4 hours, PRN for wheezing, # 1 each, 0 Refills, Maintenance, 12/28/21 20:37:00 EST, Aerosol, [id number], 164, cm, 05/23/21 15:48:00 EDT, Height, 73, [...] Active Heroin use(Confirmed) Active Opiate addiction(Confirmed) Active *[phone] Care Partn rell [place](Confirmed) Active Polysubstance abuse(Confirmed) Active PTSD (post-traumatic stress disorder)(Confirmed) Active Social History Social History Type Response Smoking Status Current every day sm oker; Type: Cigarettes; Other: 1/2 pk a day; Tobacco use times per day: 8 CIGS A DAY; Started at age: 15; entered on: 05/24/18 Sex
--- OUTSIDE RECORDS SUMMARY | 2023-05-22 15:35 | XMS_ITS | Continuity of Care Document ---
Author Name Unknown Organization [facility] Address [address] [place] [address]- Care Team Providers Care Bilingual Inside Sales Representative Name Role Phone Joss Augustine MD Primary Care Physician [place] [facility] [place]/15/[place] - 06/06/21 [facility]/[address] [address]- Attending Physician: Zhou Fisher MD Admitting Physician: [...] tablet, 11 Refills, Maintenance, 02/25/21 10:33:00 EDT, [facility], 163, cm, 07/23/20 13:59:00 EDT, Height, 80.45, kg, 07/19/20 11:52:00 EDT, Dry Weight Start Date: 02/25/21 Status: Ordered cholecalciferol 1000 intl units oral tablet 1 tablet = 1,000 International_Units, By Mouth, Daily, # 30 tablet, 11 Refills, Maintenance, 07/23/20 17:03:00 EDT, Tablet, [id number] 163, cm, 07/23/20 13:59:00 EDT, Height, 80.45, kg, 07/19/20 11:52:00 EDT, Dry Weight Start Date: 07/23/20 Status: Ordered Descovy 200 mg-25 mg oral tablet 1 tablet, By Mouth, Daily, # 30 tablet, 5 Refills, Maintenance, 02/25/21 10:37:00 EDT, Tablet, [facility], 1 tablet By Mouth Daily,x30 days, 163, cm, 07/23/20 13:59:00 EDT, Height, 80.45, kg, 07/19/20 11:52:00 EDT, Dry Weight Start Date: 02/25/21 Stop Date: 08/24/21 Status: Ordered dolutegravir 50 mg oral tablet 1 tablet = 50 mg, By Mouth, Daily, # 30 tablet, 5 Refills, Maintenance, 02/25/21 10:37:00 EDT, Tablet, [facility], 163, cm, 07/23/20 13:59:00 EDT, Height, [...] 01/28/21 17:12:00 EDT, Route to Pharmacy Electronically, [facility], 163, cm, 07/23/20 13:59:00 EDT, Height, 80.45, kg, 07/19/20 11:52:... Start Date: 01/28/21 Status: Ordered melatonin 5 mg oral tablet 1 tablet = 5 mg, By Mouth, Daily at bedtime, PRN for insomnia, # 60 tablet, 11 Refills, Maintenance, 05/16/21 3:02:00 EDT, Tablet, [facility], 163, cm, 07/23/20 13:59:00 EDT, Height,80.45, kg, 07/19/20 11:52:00 EDT, Dry Weight Start Date: 05/16/21 Status: Ordered metFORMIN 500 mg oral tablet 1 tablet = 500 mg, By Mouth, Daily, # 30 tablet, 11 Refills, Maintenance, 03/26/21 14:38:00 EDT, Tablet, [facility], 163, cm, 07/23/20 13:59:00 EDT, Height, [...] 15:14:00 EST, 12/04/20 15:13:00 EST, REC Powder, [facility], Partial fill upon patient request if the prescription is for a schedule II opi... Start Date: 12/04/20 Stop Date: 09/05/21 Status: Ordered omeprazole 40 mg oral enteric coated capsule 1 capsule = 40 mg, By Mouth, 2 times a day, # 60 capsule, 11 Refills, Maintenance, 02/25/21 10:36:00 EDT, EC Capsule, [facility], dose increased, 163, cm, 07/23/20 13:59:00 [...] 11 Refills, Maintenance, 05/16/21 3:02:00 EDT, Tablet, [facility], 163, cm, 07/23/20 13:59:00 EDT, Height, 80.45, kg, 07/19/2011:52:00 EDT, Dry Weight Start Date: 05/16/21 Stop Date: 05/11/22 Status: Ordered Ventolin HFA 108 mcg/inh inhalation aerosol with adapter 2 puffs, Inhalation, Every 4 hours, PRN for wheezing, # 2 each, 5 Refills, Maintenance, 05/20/21 17:54:00 EDT, Aerosol, [facility], 163, cm, 07/23/20 [...] Active Heroin use(Confirmed) Active Opiate addiction(Confirmed) Active *[phone] Care Partn rell [place](Confirmed) Active Polysubstance abuse(Confirmed) Active PTSD (post-traumatic stress disorder)(Confirmed) Active Social History Social History Type Response Smoking Status Current every day sm oker; Type: Cigarettes; Other: 1/2 pk a day; Tobacco use times per day: 8 CIGS A DAY; Started at age: 15; entered on: 05/24/18 Sex
--- OUTSIDE RECORDS SUMMARY | 2023-05-22 15:35 | XMS_ITS | Continuity of Care Document ---
Author Name Unknown Organization [facility] Address [address], [address], [address] [place] [address]- Care Team Providers Care Program Control Analyst Name Role Phone Joss Augustine MD Primary Care Physician Encounter [facility] [place] Date(s): 01/03/20 - 01/13/20 [facility] [address] [facility], [address], [address] [place] [address]- [facility] Attending Physician: Adama [id number] Admitting Physician: AdmtrMike Referring Physician: Admtr, Ar8 [...] 15:46:55, Solution Start Date: 09/22/17 Status: Ordered atorvastatin 10 mg oral tablet [...] 5 Refills, Maintenance, 11/28/19 15:38:00 EST, Tablet, [facility], 1 tablet By Mouth Daily,x30 days, 170, cm, 11/07/19 9:01:00 EST, Height, 90, kg, 10/06/19 0:00:00 EST, Dry Weight Start Date: 11/28/19 Stop Date: 05/26/20 Status: Ordered dolutegravir 50 mg oral tablet 1 tablet = 50 mg, By Mouth, Daily, # 30 tablet, 5 Refills, Maintenance, 11/28/19 12:15:00 EST, Tablet, [facility], 170, cm, 11/07/19 9:01:00 EST, [...] 5 Refills, Maintenance, 10/31/19 17:43:00 EST, Tablet, [facility], 170, cm, 10/17/19 16:41:00 EST, Height, 90, kg, 10/06/19 0:00:00 EST, Dry Weight Start Date: 10/31/19 Stop Date: 04/28/20 Status: Ordered Ventolin HFA 108 mcg/inh inhalation aerosol with adapter 2 puffs, Inhalation, Every 4 hours, PRN for wheezing, # 18 Gm, 5 Refills, Maintenance, 11/23/19 19:51:00 EST, Aerosol, [facility], 170, cm, 11/07/19 9:01:00 EST, Height, 90, [...] Active Heroin use(Confirmed) Active Opiate addiction(Confirmed) Active *[id number]- [facility] Part ner Shahida Montelongo(Confirmed) Active Polysubstance abuse(Confirmed) Active PTSD (post-traumatic stress disorder)(Confirmed) Active Social History Social History Type Response Smoking Status 10 or more cigarette s (1/2 pack or more)/day in last 30 days entered on: 11/07/19 Sex
--- OUTSIDE RECORDS SUMMARY | 2023-05-22 15:35 | XMS_ITS | Continuity of Care Document ---
Author Name Unknown Organization [facility] Address Unknown Care Team Providers Care Percussion Instructor Name Role Phone Joss Augustine MD Primary Care Physician Encounter [facility] [place] Date(s): 04/15/22 - 05/15/22 [facility] Attending Physician: Mike Nuñez [...] tablet, 11 Refills, Maintenance, 03/19/22 10:39:00 EDT, [facility], 164, cm, 05/23/21 15:48:00 [...] 0 Refills, Maintenance, 04/18/22 7:43:00 EDT, Tablet, [facility], 1 tablet By Mouth Daily,x30 days, 164, cm, 05/23/21 15:48:00 EDT, Height, 73, kg, 05/23/21 15:48:00 EDT, Dry Weight Start Date: 04/18/22 Stop Date: 05/18/22 Status: Ordered dolutegravir 50 mg oral tablet 1 tablet = 50 mg, By Mouth, Daily, # 30 tablet, 0 Refills, Maintenance, 04/18/22 7:44:00 EDT, Tablet, [facility], 164, cm, 05/23/21 15:48:00 [...] 02/15/22 12:19:00 EDT, Route to Pharmacy Electronically, [facility], 164, cm, 05/23/21 15:48:00 EDT, Height, 73, kg, 05/23/21 15:48:0... Start Date: 02/15/22 Status: Ordered melatonin 5 mg oral tablet 1 tablet = 5 mg, By Mouth, Daily at bedtime, PRN for insomnia, # 60 tablet, 11 Refills, Maintenance, 05/16/21 3:02:00 EDT, Tablet, [facility], 163, cm, 07/23/20 13:59:00 EDT, Height,80.45, kg, 07/19/20 11:52:00 EDT, Dry Weight Start Date: 05/16/21 Status: Ordered metFORMIN 500 mg oral tablet 1 tablet = 500 mg, By Mouth, Daily, # 30 tablet, 11 Refills, Maintenance, 04/18/22 7:43:00 EDT, Tablet, [facility], 164, cm, 05/23/21 15:48:00 [...] Refills, Maintenance, 03/19/22 10:38:00 EDT, EC Capsule, [facility], dose increased, 164, cm, 05/23/21 15:48:00 [...] 5 Refills, Maintenance, 12/12/21 15:20:00 EST, Aerosol, [facility], 164, cm, 05/23/21 15:48:00 EDT, Height, 73, kg, 05/23/21 15:48:00 EDT, Dry Weight Start Date: 12/12/21 Stop Date: 06/05/23 Status: Ordered Ventolin HFA 108 mcg/inh inhalation aerosol with adapter 2 puffs, Inhalation, Every 4 hours, PRN for wheezing, # 1 each, 0 Refills, Maintenance, 12/28/21 20:37:00 EST, Aerosol, [id number], 164, cm, 05/23/21 15:48:00 EDT, Height, 73, [...] Active Heroin use(Confirmed) Active Opiate addiction(Confirmed) Active *[id number] Care Partn rell [place](Confirmed) Active Polysubstance abuse(Confirmed) Active PTSD (post-traumatic stress disorder)(Confirmed) Active Social History Social History Type Response Smoking Status Current every day sm oker; Type: Cigarettes; Other: 1/2 pk a day; Tobacco use times per day: 8 CIGS A DAY; Started at age: 15; entered on: 05/24/18 Sex
--- OUTSIDE RECORDS SUMMARY | 2023-05-22 15:35 | XMS_ITS | Continuity of Care Document ---
Author Name Unknown Organization [facility] Address [address] [place] [address]- Care Team Providers Care Shoe Stitcher Name Role Phone Fawn REAL, Joss Martin Primary Care Physician Encounter [facility] [place] Date(s): 01/27/23 - 02/26/23 [facility] [address]- [place] Allergies, Adverse Reactions, Alerts No Known Allergies Immunizations Given and Recorded Vaccine Date Status Refusal Reason [id number] 12y+ bivalent booster vax 09/29/22 Given influenza [...] tablet, 0 Refills, Maintenance, 02/13/23 13:17:00 EDT, [facility], 164, cm, 01/19/23 15:23:00 EDT, Height, 68.18, kg, 01/15/23 10:48:00 EDT, . Start Date: 02/13/23 Stop Date: 10/26/24 Status: Ordered albuterol 0.083% inhalation solution 3 mL = 2.5 mg, Inhalation, Every 6 hours, PRN for wheezing, home delivery, # 25 each, 2 Refills, Maintenance, 01/01/23 9:12:00 EST, Solution, [facility], 164, cm, 01/01/23 8:52:00 [...] tablet, 11 Refills, Maintenance, 03/19/22 10:39:00 EDT, [facility], 164, cm, 05/23/21 15:48:00 EDT, Height, 73, kg, 05/23/21 15:48:00 EDT, DryWeight Start Date: 03/19/22 Status: Ordered cholecalciferol 1000 intl units oral tablet 1 tablet = 1,000 International_Units, By Mouth, Daily, # 30 tablet, 11 Refills, Maintenance, 02/18/23 7:13:00 EDT, Tablet, [facility], 164, cm, 01/19/23 15:23:00 EDT, Height, 68.18, kg, 01/15/23 10:48:00 EDT, Dry Weight Start Date: 02/18/23 Status: Ordered Descovy 200 mg-25 mg oral tablet 1 tablet, By Mouth, Daily, # 30 tablet, 3 Refills, Maintenance, 11/18/22 18:13:00 EST, Tablet, [facility], 1 tablet By Mouth Daily,x30 days, 164, cm, 11/18/22 16:28:00 EST, Height, 73, kg, 05/23/21 15:48:00 EDT, Dry Weight Start Date: 11/18/22 Stop Date: 03/18/23 Status: Ordered dolutegravir 50 mg oral tablet 1 tablet = 50 mg, By Mouth, Daily, # 30 tablet, 3 Refills, Maintenance, 11/18/22 18:13:00 EST, Tablet, [facility], 164, cm, 11/18/22 16:28:00 EST, Height, 73, kg, 05/23/21 15:48:00 EDT, Dry Weight Start Date: 11/18/22 Stop Date: 03/18/23 Status: Ordered Flonase 50 mcg/inh nasal spray 1 sprays, Nares, Both, 2 times a day, # 16 Gm, 0 Refills, Maintenance, 01/01/23 9:25:00 EST, [place],[facility], Partial fill upon [...] tablet, 4 Refills, Maintenance,07/08/22 13:18:00 EDT, Tablet, [facility], 164, cm, 05/23/21 15:48:00 EDT, Height,73, kg, 05/23/21 15:48:00 EDT, Dry Weight Start Date: 07/08/22 Status: Ordered metFORMIN 500 mg oral tablet 1 tablet = 500 mg, By Mouth, Daily, # 30 tablet, 4 Refills, Maintenance, 12/18/22 16:42:00 EST, Tablet, [facility], 164, cm, 11/18/22 [...] Gm, 3 Refills, Maintenance, 01/19/23 14:48:00 EDT, [facility], For constipation: one capful by mouth, every day, tit... Start Date: 01/19/23 Status: Ordered mirtazapine 15 mg oral tablet 1 tablet = 15 mg, By Mouth, Daily at bedtime, # 90 tablet, 1 Refills, Maintenance, 01/16/23 11:22:00 EDT, Tablet, [facility], Partial fill upon patient request if the prescription isfor a schedule II opioid drug., 164, cm, 01/15/23 1... Start Date: 01/16/23 Stop Date: 02/15/23 Status: Ordered nicotine 14 mg/24 hr transdermal film, extended release 1 patch, Topically, Daily, # 30 patch, 1 Refills, Maintenance, 02/23/23 4:50:00 EDT, Patch, [facility], Partial fill upon patient request if the prescription is for a schedule II opioid drug., 1 patch Topically Daily, 164, cm, ... Start Date: 02/23/23 Status: Ordered nicotine 14 mg/24 hr transdermal film, extended release 1 patch, Topically, Daily, for 6 week(s), # 42 patch, 0 Refills, Acute 02/27/23 12:49:00 EDT, 01/16/23 12:49:00 EDT, Patch, [facility], Partial fill upon patient request if the prescription is for a schedule II opioid drug., 1 patch T... Start Date: 01/16/23 Stop Date: 02/27/23 Status: Ordered nicotine 4 mg oral transmucosal lozenge 1 lozenge = 4 mg, By Mouth, Every 4 hours, for 6 week(s), # 252 lozenge, 0 Refills, Acute 02/27/23 12:48:00 EDT, 01/16/23 12:48:00 EDT, [facility], Partial fill upon patient request if the prescription is for a schedule II opioid drug... Start Date: 01/16/23 Stop Date: 02/27/23 Status: Ordered omeprazole 40 mg oral enteric coated capsule 1 capsule = 40 mg, By Mouth, 2 times a day, # 60 capsule, 11 Refills, Maintenance, 03/19/22 10:38:00 EDT, EC Capsule, [facility], dose increased, 164, cm, 05/23/21 15:48:00 [...] capsule, 1 Refills, Maintenance, 01/16/23 11:21:00 EDT, [facility], Partial fill upon patient request if the prescription is for a schedule II opioid drug., 164mikael, 01/15/23 10:48:00... Start Date: 01/16/23 Stop Date: 07/15/23 Status: Ordered Preparation H 14%-74.9%-0.25% rectal ointment 1 application, Rectally, 2 times a day, PRN as needed for itching, for 10 days, # 57 Gm, 3 Refills,Acute 02/28/23 15:13:00 EDT, 01/19/23 15:13:00 EDT, Ointment, [facility], 1 application Rectally 2 times a day,x10 days,PRN:as needed... Start Date: 01/19/23 Stop Date: 02/28/23 Status: Ordered Senna 8.6 mg oral tablet 17.2 mg, 2, tablet, By Mouth, Daily at bedtime, for 30 days, # 60 tablet, Refills 4, Tot. Refills 4, Acute, 06/14/23 11:16:00 EDT, 01/15/23 11:16:00 EDT, Route to Pharmacy Electronically, [facility], Partial fill upon patient request... Start Date: 01/15/23 Stop Date: 06/14/23 Status: Ordered sertraline 50 mg oral tablet 1 tablet = 50 mg, By Mouth, Daily, # 90 tablet, 1 Refills, Maintenance, 01/01/23 17:40:00 EST, Tablet, [facility], Partial fill upon patient request if the prescription is for a schedule II opioid drug., 164, cm, 01/01/23 8:52:00 EST,... Start Date: 01/01/23 Status: Ordered topiramate 50 mg oral tablet 1 tablet = 50 mg, By Mouth, 2 times a day, # 60 tablet, 7 Refills, Maintenance, 01/15/23 11:16:00 EDT, Tablet, [facility], 164, cm, 01/15/23 10:48:00 EDT, Height, 68.18, kg, 01/15/2310:48:00 EDT, Dry Weight Start Date: 01/15/23 Stop Date: 09/12/23 Status: Ordered Ventolin HFA 108 mcg/inh inhalation aerosol with adapter 2 puffs, Inhalation, Every 4 hours, PRN for wheezing, # 2 each, 5 Refills, Maintenance, 01/15/23 11:10:00 EDT, Aerosol, [facility], 164, cm, 01/15/23 10:48:00 [...] use Confirmed Active Opiate addiction Confirmed Active *[id number] 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 Breast cancer screening Confirmed Active Polysubstance abuse Confirmed Active PTSD (post-traumatic stress disorder) Confirmed Active Social History Social History Type Response Smoking Status 10 or more cigarette s (1/2 pack or more)/day in last 30 days; Other: pack a day; entered on: 11/18/22 Sex Patient Care team information Care Team Personnel Name: Too MARINO, Raina Donahue Position: [facility] Associate Professional Member Role: Primary Care Nurse Address: Address: [address] [place] [id number]- Name: Joss Augustine MD Position: [facility] Primary Care Physician Member Role: PCP Address: Address: [address] [place] [address] - Name: Radha Murillo RN Position: [facility] Hospital President + Publisher Member Role: Primary Care Nurse Care Team Related Persons Name: SARWAT PEARL Address: [address] [place] [address] Name: CRYSTAL PEARL Address: [address] [place] [address] Name: DARRICK RENEE
--- OUTSIDE RECORDS SUMMARY | 2023-05-22 15:35 | XMS_ITS | Continuity of Care Document ---
Author Name Unknown Organization [facility] Address Unknown Care Team Providers Care Ship Washer Name Role Phone Joss Augustine MD Primary Care Physician [place] [facility] [place]13[place] - 10/13/21 [facility] Allergies, Adverse Reactions, Alerts Substance Reaction [...] tablet, 11 Refills, Maintenance, 02/25/21 10:33:00 EDT, [facility], 163, cm, 07/23/20 13:59:00 EDT, Height, 80.45, kg, 07/19/20 11:52:00 EDT, Dry Weight Start Date: 02/25/21 Status: Ordered cholecalciferol 1000 intl units oral tablet 1 tablet = 1,000 International_Units, By Mouth, Daily, # 30 tablet, 11 Refills, Maintenance, 08/29/21 10:17:00 EDT, Tablet, [facility], 164, cm, 05/23/21 15:48:00 EDT, Height, 73, kg, 05/23/21 15:48:00 EDT, Dry Weight Start Date: 08/29/21 Status: Ordered Descovy 200 mg-25 mg oral tablet 1 tablet, By Mouth, Daily, # 30 tablet, 2 Refills, Maintenance, 09/24/21 6:24:00 EST, Tablet, [facility], 1 tablet By Mouth Daily,x30 days, 164, cm, 05/23/21 15:48:00 EDT, Height, 73, kg, 05/23/21 15:48:00 EDT, Dry Weight Start Date: 09/24/21 Stop Date: 12/23/21 Status: Ordered dolutegravir 50 mg oral tablet 1 tablet = 50 mg, By Mouth, Daily, # 30 tablet, 2 Refills, Maintenance, 09/24/21 6:24:00 EST, Tablet, [facility], 164, cm, 05/23/21 15:48:00 EDT, [...] 07/16/21 7:01:00 EDT, Route to Pharmacy Electronically, [facility], 164, cm, 05/23/21 15:48:00 EDT, Height, 73, kg, 05/23/21 15:48:00 E... Start Date: 07/16/21 Status: Ordered melatonin 5 mg oral tablet 1 tablet = 5 mg, By Mouth, Daily at bedtime, PRN for insomnia, # 60 tablet, 11 Refills, Maintenance, 05/16/21 3:02:00 EDT, Tablet, [facility], 163, cm, 07/23/20 13:59:00 EDT, Height,80.45, kg, 07/19/20 11:52:00 EDT, Dry Weight Start Date: 05/16/21 Status: Ordered metFORMIN 500 mg oral tablet 1 tablet = 500 mg, By Mouth, Daily, # 30 tablet, 11 Refills, Maintenance, 03/26/21 14:38:00 EDT, Tablet, [facility], 163, cm, 07/23/20 13:59:00 [...] Refills, Maintenance, 02/25/21 10:36:00 EDT, EC Capsule, [facility], dose increased, 163, cm, [...] 11 Refills, Maintenance, 05/16/21 3:02:00 EDT, Tablet, [facility], 163, cm, 07/23/20 13:59:00 EDT, Height, 80.45, kg, 07/19/2011:52:00 EDT, Dry Weight Start Date: 05/16/21 Stop Date: 05/11/22 Status: Ordered Ventolin HFA 108 mcg/inh inhalation aerosol with adapter 2 puffs, Inhalation, Every 4 hours, PRN for wheezing, # 2 each, 5 Refills, Maintenance, 05/20/21 17:54:00 EDT, Aerosol, [facility], 163, cm, 07/23/20 13:59:00 [...] Active Heroin use(Confirmed) Active Opiate addiction(Confirmed) Active *[phone] Care Partn rell Eagle(Confirmed) Active Polysubstance abuse(Confirmed) Active PTSD (post-traumatic stress disorder)(Confirmed) Active Social History Social History Type Response Smoking Status Current every day radha guthrie; Type: Cigarettes; Other: 1/2 pk a day; Tobacco use times per day: 8 CIGS A DAY; Started at age: 15; entered on: 05/24/18 Sex
--- OUTSIDE RECORDS SUMMARY | 2023-05-22 15:35 | XMS_ITS | Continuity of Care Document ---
Author Name Unknown Organization [facility] Address Unknown Care Team Providers Care Iron Installer Name Role Phone Joss Augustine MD Primary Care Physician Encounter [facility] [place] Date(s): 05/15/21 - 06/14/21 [facility] Allergies, Adverse Reactions, Alerts Substance Reaction [...] tablet, 11 Refills, Maintenance, 02/25/21 10:33:00 EDT, [facility], 163, cm, 07/23/20 13:59:00 EDT, Height, 80.45, kg, 07/19/20 11:52:00 EDT, Dry Weight Start Date: 02/25/21 Status: Ordered cholecalciferol 1000 intl units oral tablet 1 tablet = 1,000 International_Units, By Mouth, Daily, # 30 tablet, 11 Refills, Maintenance, 07/23/20 17:03:00 EDT, Tablet, [facility] [id number] ([facility]), 163, cm, 07/23/20 13:59:00 EDT, Height, 80.45, kg, 07/19/20 11:52:00 EDT, Dry Weight Start Date: 07/23/20 Status: Ordered Descovy 200 mg-25 mg oral tablet 1 tablet, By Mouth, Daily, # 30 tablet, 5 Refills, Maintenance, 02/25/21 10:37:00 EDT, Tablet, [facility], 1 tablet By Mouth Daily,x30 days, 163, cm, 07/23/20 13:59:00 EDT, Height, 80.45, kg, 07/19/20 11:52:00 EDT, Dry Weight Start Date: 02/25/21 Stop Date: 08/24/21 Status: Ordered dolutegravir 50 mg oral tablet 1 tablet = 50 mg, By Mouth, Daily, # 30 tablet, 5 Refills, Maintenance, 02/25/21 10:37:00 EDT, Tablet, [facility], 163, cm, 07/23/20 13:59:00 EDT, [...] 01/28/21 17:12:00 EDT, Route to Pharmacy Electronically, [facility], 163, cm, 07/23/20 13:59:00 EDT, Height, 80.45, kg, 07/19/20 11:52:... Start Date: 01/28/21 Status: Ordered melatonin 5 mg oral tablet 1 tablet = 5 mg, By Mouth, Daily at bedtime, PRN for insomnia, # 60 tablet, 11 Refills, Maintenance, 05/16/21 3:02:00 EDT, Tablet, [facility], 163, cm, 07/23/20 13:59:00 EDT, Height,80.45, kg, 07/19/20 11:52:00 EDT, Dry Weight Start Date: 05/16/21 Status: Ordered metFORMIN 500 mg oral tablet 1 tablet = 500 mg, By Mouth, Daily, # 30 tablet, 11 Refills, Maintenance, 03/26/21 14:38:00 EDT, Tablet, [facility], 163, cm, 07/23/20 13:59:00 [...] 15:14:00 EST, 12/04/20 15:13:00 EST, REC Powder, [facility], Partial fill upon patient request if the prescription is for a schedule II opi... Start Date: 12/04/20 Stop Date: 09/05/21 Status: Ordered omeprazole 40 mg oral enteric coated capsule 1 capsule = 40 mg, By Mouth, 2 times a day, # 60 capsule, 11 Refills, Maintenance, 02/25/21 10:36:00 EDT, EC Capsule, [facility], dose increased, 163, cm, 07/23/20 [...] 11 Refills, Maintenance, 05/16/21 3:02:00 EDT, Tablet, [facility], 163, cm, 07/23/20 13:59:00 EDT, Height, 80.45, kg, 07/19/2011:52:00 EDT, Dry Weight Start Date: 05/16/21 Stop Date: 05/11/22 Status: Ordered Ventolin HFA 108 mcg/inh inhalation aerosol with adapter 2 puffs, Inhalation, Every 4 hours, PRN for wheezing, # 2 each, 5 Refills, Maintenance, 05/20/21 17:54:00 EDT, Aerosol, [facility], 163, cm, 07/23/20 13:59:00 [...] Active Heroin use(Confirmed) Active Opiate addiction(Confirmed) Active *[phone] Care Partn rell Eagle(Confirmed) Active Polysubstance abuse(Confirmed) Active PTSD (post-traumatic stress disorder)(Confirmed) Active Social History Social History Type Response Smoking Status Current every day radha guthrie; Type: Cigarettes; Other: 1/2 pk a day; Tobacco use times per day: 8 CIGS A DAY; Started at age: 15; entered on: 05/24/18 Sex
--- OUTSIDE RECORDS SUMMARY | 2023-05-22 15:35 | XMS_ITS | Continuity of Care Document ---
Author Name Unknown Organization [facility] Address [address] [facility], [address] Floor, [address] [place] [id number]- Care Team Providers Care Bagging Salvager Name Role Phone Joss Augustine MD Primary Care Physician Encounter [facility] [place] Date(s): 12/26/19 - 01/28/20 [facility] [address] [facility], [address]rd Floor, [address] [place] [address]- [facility] Attending Physician: Eva Wright DNP Referring Physician: Joss Augustine MD Allergies, Adverse [...] 5 Refills, Maintenance, 11/28/19 15:38:00 EST, Tablet, [facility], 1 tablet By Mouth Daily,x30 days, 170, cm, 11/07/19 9:01:00 EST, Height, 90, kg, 10/06/19 0:00:00 EST, Dry Weight Start Date: 11/28/19 Stop Date: 05/26/20 Status: Ordered dolutegravir 50 mg oral tablet 1 tablet = 50 mg, By Mouth, Daily, # 30 tablet, 5 Refills, Maintenance, 11/28/19 12:15:00 EST, Tablet, [facility], 170, cm, 11/07/19 9:01:00 EST, [...] 5 Refills, Maintenance, 10/31/19 17:43:00 EST, Tablet, [facility], 170, cm, 10/17/19 16:41:00 EST, Height, 90, kg, 10/06/19 0:00:00 EST, Dry Weight Start Date: 10/31/19 Stop Date: 04/28/20 Status: Ordered Ventolin HFA 108 mcg/inh inhalation aerosol with adapter 2 puffs, Inhalation, Every 4 hours, PRN for wheezing, # 18 Gm, 5 Refills, Maintenance, 11/23/19 19:51:00 EST, Aerosol, [facility], 170, cm, 11/07/19 9:01:00 EST, Height, 90, [...] Active Heroin use(Confirmed) Active Opiate addiction(Confirmed) Active *[id number]- Care Part ner Shahida Montelongo(Confirmed) Active Polysubstance abuse(Confirmed) Active PTSD (post-traumatic stress disorder)(Confirmed) Active Social History Social History Type Response Smoking Status 10 or more cigarette s (1/2 pack or more)/day in last 30 days entered on: 11/07/19 Sex
--- OUTSIDE RECORDS SUMMARY | 2023-05-22 15:35 | XMS_ITS | Continuity of Care Document ---
Author Name Unknown Organization [facility] Address [address] [place] [address]- Care Team Providers Care Supervisor Corduroy Cutting Name Role Phone Joss Augustine MD Primary Care Physician [place] [facility] [place] - 02/04/23 [facility] [address]- Attending Physician: Joss Augustine MD Admitting Physician: Joss Augustine MD Allergies, Adverse Reactions, Alerts No Known Allergies Immunizations Given and Recorded Vaccine Date Status Refusal Reason [id number] 12y+ bivalent booster vax 09/29/22 Given influenza [...] tablet, 11 Refills, Maintenance, 03/19/22 10:39:00 EDT, [facility], 164, cm, 05/23/21 15:48:00 EDT, Height, 73, kg, 05/23/21 15:48:00 EDT, DryWeight Start Date: 03/19/22 Status: Ordered cholecalciferol 1000 intl units oral tablet 1 tablet = 1,000 International_Units, By Mouth, Daily, # 30 tablet, 4 Refills, Maintenance, 09/04/22 16:07:00 EST, Tablet, [facility], 164, cm, 05/23/21 15:48:00 EDT, Height, 73, kg,05/23/21 15:48:00 EDT, Dry Weight Start Date: 09/04/22 Status: Ordered Descovy 200 mg-25 mg oral tablet 1 tablet, By Mouth, Daily, # 30 tablet, 3 Refills, Maintenance, 11/18/22 18:13:00 EST, Tablet, [facility], 1 tablet By Mouth Daily,x30 [...] Gm, 0 Refills, Maintenance, 01/01/23 9:25:00 EST, [place],[facility], Partial [...] tablet, 4 Refills, Maintenance,07/08/22 13:18:00 EDT, Tablet, [facility], 164, cm, 05/23/21 15:48:00 EDT, Height,73, kg, 05/23/21 15:48:00 EDT, Dry Weight Start Date: 07/08/22 Status: Ordered metFORMIN 500 mg oral tablet 1 tablet = 500 mg, By Mouth, Daily, # 30 tablet, 4 Refills, Maintenance, 12/18/22 16:42:00 EST, Tablet, [facility], 164, cm, 11/18/22 16:28:00 EST, [...] Gm, 3 Refills, Maintenance, 01/19/23 14:48:00 EDT, [facility], For constipation: one capful by mouth, every day, tit... Start Date: 01/19/23 Status: Ordered mirtazapine 15 mg oral tablet 1 tablet = 15 mg, By Mouth, Daily at bedtime, # 90 tablet, 1 Refills, Maintenance, 01/16/23 11:22:00 EDT, Tablet, [facility], Partial fill upon patient request if the prescription isfor a schedule II opioid drug., 164, cm, 01/15/23 1... Start Date: 01/16/23 Stop Date: 02/15/23 Status: Ordered nicotine 14 mg/24 hr transdermal film, extended release 1 patch, Topically, Daily, for 6 week(s), # 42 patch, 0 Refills, Acute 02/27/23 12:49:00 EDT, 01/16/23 12:49:00 EDT, Patch, [facility], Partial fill upon patient request if the prescription is for a schedule II opioid drug., 1 patch T... Start Date: 01/16/23 Stop Date: 02/27/23 Status: Ordered nicotine 4 mg oral transmucosal lozenge 1 lozenge = 4 mg, By Mouth, Every 4 hours, for 6 week(s), # 252 lozenge, 0 Refills, Acute 02/27/23 12:48:00 EDT, 01/16/23 12:48:00 EDT, [facility], Partial fill upon patient request if the prescription is for a schedule II opioid drug... Start Date: 01/16/23 Stop Date: 02/27/23 Status: Ordered omeprazole 40 mg oral enteric coated capsule 1 capsule = 40 mg, By Mouth, 2 times a day, # 60 capsule, 11 Refills, Maintenance, 03/19/22 10:38:00 EDT, EC Capsule, [facility], dose increased, 164, cm, [...] capsule, 1 Refills, Maintenance, 01/16/23 11:21:00 EDT, [facility], Partial fill upon patient request if the prescription is for a schedule II opioid drug., 164, cm, 01/15/23 10:48:00... Start Date: 01/16/23 Stop Date: 07/15/23 Status: Ordered Preparation H 14%-74.9%-0.25% rectal ointment 1 application, Rectally, 2 times a day, PRN as needed for itching, for 10 days, # 57 Gm, 3 Refills,Acute 02/28/23 15:13:00 EDT, 01/19/23 15:13:00 EDT, Ointment, [facility], 1 application Rectally 2 times a day,x10 days,PRN:as needed... Start Date: 01/19/23 Stop Date: 02/28/23 Status: Ordered Salonpas (camphor) topical film 1 patch, Topically, Daily, for 30 days, do not leave patch on for more than 8 hours at a time, # 30patch, 0 Refills, Acute 02/14/23 11:14:00 EDT, 01/15/23 11:14:00 EDT, Film, [facility], Partial fill upon patient request if the presc... Start Date: 01/15/23 Stop Date: 02/14/23 Status: Ordered Senna 8.6 mg oral tablet 17.2 mg, 2, tablet, By Mouth, Daily at bedtime, for 30 days, # 60 tablet, Refills 4, Tot. Refills 4, Acute, 06/14/23 11:16:00 EDT, 01/15/23 11:16:00 EDT, Route to Pharmacy Electronically, [facility], Partial fill upon patient request... Start Date: 01/15/23 Stop Date: 06/14/23 Status: Ordered sertraline 50 mg oral tablet 1 tablet = 50 mg, By Mouth, Daily, # 90 tablet, 1 Refills, Maintenance, 01/01/23 17:40:00 EST, Tablet, [facility], Partial fill upon patient request if the prescription is for a schedule II opioid drug., 164, cm, 01/01/23 8:52:00 EST,... Start Date: 01/01/23 Status: Ordered topiramate 50 mg oral tablet 1 tablet = 50 mg, By Mouth, 2 times a day, # 60 tablet, 7 Refills, Maintenance, 01/15/23 11:16:00 EDT, Tablet, [facility], 164, cm, 01/15/23 10:48:00 EDT, [...] use Confirmed Active Opiate addiction Confirmed Active *[id number] Form Building Supervisor Marcella Sargent Confirmed Active Breast cancer screening Confirmed Active Polysubstance abuse Confirmed Active PTSD (post-traumatic stress disorder) Confirmed Active Social History Social History Type Response Smoking Status 10 or more cigarette s (1/2 pack or more)/day in last 30 days; Other: pack a day; entered on: 11/18/22 Sex Patient Care team information Care Team Personnel Name: Too MARINO, Raina Donahue Position: [facility] Associate Professional Member Role: Primary Care Nurse Address: Address: [address] [place] [address] Name: Joss Augustine MD Position: [facility] Primary Care Physician Member Role: PCP Address: Address: [address] [place] [address] Name: Radha Murillo RN Position: [facility] Hospital Eyeglass Inspector Member Role: Primary Care Nurse Care Team Related Persons Name: SARWAT PEARL Address: [address] [place] [address] Name: CRYSTAL PEARL Address: [address] [place] [address] Name: DARRICK RENEE
--- OUTSIDE RECORDS SUMMARY | 2023-05-22 15:35 | XMS_ITS | Continuity of Care Document ---
Author Name Unknown Organization [facility] Address [address] [place] [address]- Care Team Providers Care Ledger Clerk Name Role Phone Joss Augustine MD Primary Care Physician Encounter [facility] Date(s): 05/22/21 - 05/22/[address] [address]- Discharge Disposition: A-D/C Walkout Attending Physician: Jasson Short MD Admitting Physician: Jasson Short MD Referring Physician: Not on Staff, Referring [...] 11 Refills, Maintenance, 02/25/21 10:33:00 EDT, [facility], 163, cm, 07/23/20 13:59:00 EDT, Height, 80.45, kg, 07/19/20 11:52:00 EDT, Dry Weight Start Date: 02/25/21 Status: Ordered cholecalciferol 1000 intl units oral tablet 1 tablet = 1,000 International_Units, By Mouth, Daily, # 30 tablet, 11 Refills, Maintenance, 07/23/20 17:03:00 EDT, Tablet, Trish [id number] (FamilyMeds 827), 163, cm, 07/23/20 13:59:00 EDT, Height, 80.45, kg, 07/19/20 11:52:00 EDT, Dry Weight Start Date: 07/23/20 Status: Ordered Descovy 200 mg-25 mg oral tablet 1 tablet, By Mouth, Daily, # 30 tablet, 5 Refills, Maintenance, 02/25/21 10:37:00 EDT, Tablet, [facility], 1 tablet By Mouth Daily,x30 days, 163, cm, 07/23/20 13:59:00 EDT, Height, 80.45, kg, 07/19/20 11:52:00 EDT, Dry Weight Start Date: 02/25/21 Stop Date: 08/24/21 Status: Ordered dolutegravir 50 mg oral tablet 1 tablet = 50 mg, By Mouth, Daily, # 30 tablet, 5 Refills, Maintenance, 02/25/21 10:37:00 EDT, Tablet, [facility], 163, cm, 07/23/20 13:59:00 [...] 01/28/21 17:12:00 EDT, Route to Pharmacy Electronically, [facility], 163, cm, 07/23/20 13:59:00 EDT, Height, 80.45, kg, 07/19/20 11:52:... Start Date: 01/28/21 Status: Ordered melatonin 5 mg oral tablet 1 tablet = 5 mg, By Mouth, Daily at bedtime, PRN for insomnia, # 60 tablet, 11 Refills, Maintenance, 05/16/21 3:02:00 EDT, Tablet, [facility], 163, cm, 07/23/20 13:59:00 EDT, Height,80.45, kg, 07/19/20 11:52:00 EDT, Dry Weight Start Date: 05/16/21 Status: Ordered metFORMIN 500 mg oral tablet 1 tablet = 500 mg, By Mouth, Daily, # 30 tablet, 11 Refills, Maintenance, 03/26/21 14:38:00 EDT, Tablet, [facility], 163, cm, [...] 15:14:00 EST, 12/04/20 15:13:00 EST, REC Powder, [facility], Partial fill upon patient request if the prescription is for a schedule II opi... Start Date: 12/04/20 Stop Date: 09/05/21 Status: Ordered omeprazole 40 mg oral enteric coated capsule 1 capsule = 40 mg, By Mouth, 2 times a day, # 60 capsule, 11 Refills, Maintenance, 02/25/21 10:36:00 EDT, EC Capsule, [facility], dose increased, 163, cm, 07/23/20 [...] 5 Refills, Maintenance, 05/20/21 17:54:00 EDT, Aerosol, [facility], 163, cm, 07/23/20 13:59:00 [...] Active Heroin use(Confirmed) Active Opiate addiction(Confirmed) Active *[id number] Care Partn rell Eagle(Confirmed) Active Polysubstance abuse(Confirmed) Active PTSD (post-traumatic stress disorder)(Confirmed) Active Vital Signs Most recent to oldest [Reference Range]: 1 Height 163 cm (05/22/21 2:13 PM) Weight 73 kg (05/22/21 2:13 PM) Oxygen Saturation [94-100 %] 99 % (05/22/21 2:13 PM) Pulse Rate [55-90 bpm] 62 bpm (05/22/21 2:13 PM) Blood Pressure [90-138/55-84 mm Hg] 112/ 74mm Hg (05/22/21 2:13 PM) Respiratory Rate [16-30 br/min] 18 br/mi n (05/22/21 2:13 PM) Temperature [96.8-100.4 DegF] 97.8 DegF (05/22/21 2:13 PM) Mode of Delivery (Oxygen) Room air (05/22/21 2:13 PM) Blood pressure sites Arm, left (05/22/21 2:13 PM) Temperature Route Temporal (05/22/21 2:13 PM) Dry Weight 73 kg (05/22/21 2:13 PM) Weight Obtained Via Patient/family state d (05/22/21 2:13 PM) Social History Social History Type Response Smoking Status 10 or more cigarette s (1/2 pack or more)/day in last 30 days; Tobacco user in household: Yes entered on: 07/19/20 Sex
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
--- OUTSIDE RECORDS SUMMARY | 2023-05-22 15:35 | XMS_ITS | Continuity of Care Document ---
Author Name Unknown Organization [facility] Address [address] [place] [address]- Care Team Providers Care Ventilation Worker Name Role Phone Fawn REAL, Joss Martin Primary Care Physician Encounter [facility] [id number] Date(s): 09/29/22 - 10/29/22 [facility] [address]- Attending Physician: Mike Nuñez Admitting Physician: Mike Nuñez Referring Physician: AdmtrMike Allergies, Adverse Reactions, Alerts No Known Allergies Immunizations Given and Recorded Vaccine Date Status Refusal Reason [id number] 12y+ bivalent booster vax 09/29/22 Given influenza [...] delivery, # 25 each, 2 Refills, Maintenance, 11/28/17 15:46:55, Solution Start Date: 09/22/17 Status: Ordered [...] tablet, 11 Refills, Maintenance, 03/19/22 10:39:00 EDT, [facility], 164, cm, 05/23/21 15:48:00 EDT, Height, 73, kg, 05/23/21 15:48:00 EDT, DryWeight Start Date: 03/19/22 Status: Ordered cholecalciferol 1000 intl units oral tablet 1 tablet = 1,000 International_Units, By Mouth, Daily, # 30 tablet, 4 Refills, Maintenance, 09/04/22 16:07:00 EST, Tablet, [facility], 164, cm, 05/23/21 15:48:00 EDT, Height, 73, kg,05/23/21 15:48:00 EDT, Dry Weight Start Date: 09/04/22 Status: Ordered Descovy 200 mg-25 mg oral tablet 1 tablet, By Mouth, Daily, # 30 tablet, 1 Refills, Maintenance, 09/04/22 16:06:00 EST, Tablet, [facility], 1 tablet By Mouth Daily,x30 days, 164, cm, 05/23/21 15:48:00 EDT, Height, 73, kg, 05/23/21 15:48:00 EDT, Dry Weight Start Date: 09/04/22 Stop Date: 11/03/22 Status: Ordered dolutegravir 50 mg oral tablet 1 tablet = 50 mg, By Mouth, Daily, # 30 tablet, 1 Refills, Maintenance, 09/04/22 16:06:00 EST, Tablet, [facility], 164, cm, 05/23/21 15:48:00 EDT, [...] tablet, 4 Refills, Maintenance,07/08/22 13:18:00 EDT, Tablet, [facility], 164, cm, 05/23/21 15:48:00 EDT, Height,73, kg, 05/23/21 15:48:00 EDT, Dry Weight Start Date: 07/08/22 Status: Ordered metFORMIN 500 mg oral tablet 1 tablet = 500 mg, By Mouth, Daily, # 30 tablet, 4 Refills, Maintenance, 07/08/22 13:18:00 EDT, Tablet, [facility], 164, cm, 05/23/21 15:48:00 EDT, [...] Refills, Maintenance, 03/19/22 10:38:00 EDT, EC Capsule, [facility], dose increased, 164, cm, 05/23/21 [...] 07/08/22 13:19:00 EDT, Route to Pharmacy Electronically, [facility], Partial fill upon patient [...] 4 Refills, Maintenance, 07/08/22 13:18:00 EDT, Tablet, [facility], 164, cm, 05/23/21 15:48:00 EDT, Height, 73, kg, 05/23/21 15:48:00 EDT, Dry Weight Start Date: 07/08/22 Stop Date: 12/05/22 Status: Ordered Ventolin HFA 108 mcg/inh inhalation aerosol with adapter 2 puffs, Inhalation, Every 4 hours, PRN for wheezing, # 2 each, 5 Refills, Maintenance, 12/12/21 15:20:00 EST, Aerosol, [facility], 164, cm, 05/23/21 15:48:00 EDT, Height, 73, kg, 05/23/21 15:48:00 EDT, Dry Weight Start Date: 12/12/21 Stop Date: 06/05/23 Status: Ordered Ventolin HFA 108 mcg/inh inhalation aerosol with adapter 2 puffs, Inhalation, Every 4 hours, PRN for wheezing, # 1 each, 11 Refills, Maintenance, 10/02/22 9:53:00 EST, Aerosol, [facility], 164, cm, 09/29/22 11:08:00 [...] use Confirmed Active Opiate addiction Confirmed Active *[id number] Food Service Worker [facility] Confirmed Active Breast cancer screening Confirmed Active Polysubstance abuse Confirmed Active PTSD (post-traumatic stress disorder) Confirmed Active Social History Social History Type Response Smoking Status Current every day sm oker; Type: Cigarettes; Other: 1/2 pk a day; Tobacco use times per day: 8 CIGS A DAY; Started at age: 15; entered on: 05/24/18 Sex Note * Event Display: Non BH Lab Results Authored Date: [id number] * Event Display: Non BH Cardiovascular Results Authored Date: * Event Display: MM Mammogram, Non- BH Authored Date: * Event Display: Non BH Lab Results Authored Date: * Event Display: Non BH Cardiovascular Results Authored Date: * Event Display: X-Ray Chest, Non- BH Authored Date: * Event Display: Non BH Lab Results Authored Date: Patient Care team information Care Team Personnel Name: Too MARINO, Raina Donahue Position: [facility] Associate Professional Member Role: Primary Care Nurse Address: Address: [address] [place] [address]- Name: Joss Augustine MD Position: [facility] Primary Care Physician Member Role: PCP Address: Address: [address] [place] [address] Name: Radha Murillo RN Position: [facility] Hospital Barrel And Receiver Aligner Member Role: Primary Care Nurse Care Team Related Persons Name: SARWAT PEARL Address: [address] [place] [address] Name: CRYSTAL PEARL Address: [address] [place] [address] Name: DARRICK RENEE
--- OUTSIDE RECORDS SUMMARY | 2023-05-22 15:36 | XMS_ITS | Continuity of Care Document ---
Author Name Unknown Organization [facility] Address [address] [place] [address]- Care Team Providers Care Child'S Nurse Name Role Phone Joss Augustine MD Primary Care Physician Encounter [facility] Date(s): 01/22/23 - 03/24/[address] [address]- Encounter Diagnosis Low back pain, unspecified(Final) - Discharge Disposition: A-D/C Home Attending Physician: Yang Cantu NP Admitting Physician: Yang Cantu NP Referring Physician: Yang Cantu NP Allergies, Adverse Reactions, Alerts No Known Allergies Immunizations Given and Recorded Vaccine Date Status Refusal Reason [id number] 12y+ bivalent booster vax 09/29/22 Given influenza [...] tablet, 0 Refills, Maintenance, 02/13/23 13:17:00 EDT, [facility], 164, cm, 01/19/23 15:23:00 EDT, Height, 68.18, kg, 01/15/23 10:48:00 EDT, . Start Date: 02/13/23 Stop Date: 10/26/24 Status: Ordered albuterol 0.083% inhalation solution 3 mL = 2.5 mg, Inhalation, Every 6 hours, PRN for wheezing, home delivery, # 25 each, 2 Refills, Maintenance, 01/01/23 9:12:00 EST, Solution, [facility], 164, cm, 01/01/23 8:52:00 EST, [...] tablet, 11 Refills, Maintenance, 03/19/22 10:39:00 EDT, [facility], 164, cm, 05/23/21 15:48:00 EDT, Height, 73, kg, 05/23/21 15:48:00 EDT, DryWeight Start Date: 03/19/22 Status: Ordered cholecalciferol 1000 intl units oral tablet 1 tablet = 1,000 International_Units, By Mouth, Daily, # 30 tablet, 11 Refills, Maintenance, 02/18/23 7:13:00 EDT, Tablet, [facility], 164, cm, 01/19/23 15:23:00 EDT, Height, 68.18, kg, 01/15/23 10:48:00 EDT, Dry Weight Start Date: 02/18/23 Status: Ordered Descovy 200 mg-25 mg oral tablet 1 tablet, By Mouth, Daily, # 30 tablet, 3 Refills, Maintenance, 11/18/22 18:13:00 EST, Tablet, [facility], 1 tablet By Mouth Daily,x30 days, 164, cm, 11/18/22 16:28:00 EST, Height, 73, kg, 05/23/21 15:48:00 EDT, Dry Weight Start Date: 11/18/22 Stop Date: 03/18/23 Status: Ordered dolutegravir 50 mg oral tablet 1 tablet = 50 mg, By Mouth, Daily, # 30 tablet, 3 Refills, Maintenance, 11/18/22 18:13:00 EST, Tablet, [facility], 164, cm, 11/18/22 16:28:00 EST, Height, 73, kg, 05/23/21 15:48:00 EDT, Dry Weight Start Date: 11/18/22 Stop Date: 03/18/23 Status: Ordered Flonase 50 mcg/inh nasal spray 1 sprays, Nares, Both, 2 times a day, # 16 Gm, 0 Refills, Maintenance, 01/01/23 9:25:00 EST, [place],[facility], Partial fill upon patient request [...] tablet, 4 Refills, Maintenance,07/08/22 13:18:00 EDT, Tablet, [facility], 164, cm, 05/23/21 15:48:00 EDT, Height,73, kg, 05/23/21 15:48:00 EDT, Dry Weight Start Date: 07/08/22 Status: Ordered metFORMIN 500 mg oral tablet 1 tablet = 500 mg, By Mouth, Daily, # 30 tablet, 4 Refills, Maintenance, 12/18/22 16:42:00 EST, Tablet, [facility], 164, cm, 11/18/22 16:28:00 EST, [...] Gm, 3 Refills, Maintenance, 01/19/23 14:48:00 EDT, [facility], For constipation: one capful by mouth, every day, tit... Start Date: 01/19/23 Status: Ordered mirtazapine 15 mg oral tablet 1 tablet = 15 mg, By Mouth, Daily at bedtime, # 90 tablet, 1 Refills, Maintenance, 01/16/23 11:22:00 EDT, Tablet, [facility], Partial fill upon patient request if the prescription isfor a schedule II opioid drug., 164, cm, 01/15/23 1... Start Date: 01/16/23 Stop Date: 02/15/23 Status: Ordered nicotine 14 mg/24 hr transdermal film, extended release 1 patch, Topically, Daily, # 30 patch, 1 Refills, Maintenance, 02/23/23 4:50:00 EDT, Patch, [facility], Partial fill upon patient request if the prescription is for a schedule II opioid drug., 1 patch Topically Daily, 164, cm, ... Start Date: 02/23/23 Status: Ordered omeprazole 40 mg oral enteric coated capsule 1 capsule = 40 mg, By Mouth, 2 times a day, # 60 capsule, 11 Refills, Maintenance, 03/19/22 10:38:00 EDT, EC Capsule, [facility], dose increased, 164, cm, [...] capsule, 1 Refills, Maintenance, 01/16/23 11:21:00 EDT, [facility], Partial fill upon patient request [...] 11:16:00 EDT, Route to Pharmacy Electronically, [facility], Partial fill upon patient request... Start Date: 01/15/23 Stop Date: 06/14/23 Status: Ordered sertraline 50 mg oral tablet 1 tablet = 50 mg, By Mouth, Daily, # 90 tablet, 1 Refills, Maintenance, 01/01/23 17:40:00 EST, Tablet, [facility], Partial fill upon patient request if the prescription is for a schedule II opioid drug., 164, cm, 01/01/23 8:52:00 EST,... Start Date: 01/01/23 Status: Ordered topiramate 50 mg oral tablet 1 tablet = 50 mg, By Mouth, 2 times a day, # 60 tablet, 7 Refills, Maintenance, 01/15/23 11:16:00 EDT, Tablet, [facility], 164, cm, 01/15/23 10:48:00 EDT, Height, 68.18, kg, 01/15/2310:48:00 EDT, Dry Weight Start Date: 01/15/23 Stop Date: 09/12/23 Status: Ordered Ventolin HFA 108 mcg/inh inhalation aerosol with adapter 2 puffs, Inhalation, Every 4 hours, PRN for wheezing, # 2 each, 5 Refills, Maintenance, 01/15/23 11:10:00 EDT, Aerosol, [facility], 164, cm, 01/15/23 10:48:00 EDT, [...] use Confirmed Active Opiate addiction Confirmed Active *[phone] 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 Marcella Sargent Confirmed Active Breast cancer screening Confirmed Active Polysubstance abuse Confirmed Active PTSD (post-traumatic stress disorder) Confirmed Active Social History Social History Type Response Smoking Status 10 or more cigarette s (1/2 pack or more)/day in last 30 days; Other: pack a day; entered on: 11/18/22 Sex Patient Care team information Care Team Personnel Name: Too MARINO, Raina Donahue Position: [facility] Associate Professional Member Role: Primary Care Nurse Address: Address: [address] [place] [id number] Name: Joss Augustine MD Position: [facility] Physician - Primary Care Member Role: PCP Address: Address: [address] [place] [id number] Name: Radha Murillo RN Position: [facility] Supervisor Nuclear Medicine Member Role: Primary Care Nurse Care Team Related Persons Name: SARWAT PEARL Address: [address] [place] [address] Name: CRYSTAL PEARL Address: [address] [place] [address] Name: DARRICK RENEE
--- OUTSIDE RECORDS SUMMARY | 2023-05-22 15:36 | XMS_ITS | Continuity of Care Document ---
Author Name Unknown Organization [facility] Address [address] [place] [address]- Care Team Providers Care Registrar Assistant Name Role Phone Joss Augustine MD Primary Care Physician Encounter [facility] Date(s): 02/19/23 - 03/21/23 [facility] [place] [address]- Attending Physician: Mike Nuñez Admitting Physician: AdmMike tracy Referring Physician: AdmtrMike Allergies, Adverse Reactions, Alerts No Known Allergies Immunizations Given and Recorded Vaccine Date Status Refusal Reason [id number] 12y+ bivalent booster vax 09/29/22 Given influenza [...] 0 Refills, Maintenance, 02/13/23 13:17:00 EDT, [facility], 164, cm, 01/19/23 15:23:00 EDT, Height, 68.18, kg, 01/15/23 10:48:00 EDT, . Start Date: 02/13/23 Stop Date: 10/26/24 Status: Ordered albuterol 0.083% inhalation solution 3 mL = 2.5 mg, Inhalation, Every 6 hours, PRN for wheezing, home delivery, # 25 each, 2 Refills, Maintenance, 01/01/23 9:12:00 EST, Solution, [facility], 164, cm, 01/01/23 8:52:00 [...] tablet, 11 Refills, Maintenance, 03/19/22 10:39:00 EDT, [facility], 164, cm, 05/23/21 15:48:00 EDT, Height, 73, kg, 05/23/21 15:48:00 EDT, DryWeight Start Date: 03/19/22 Status: Ordered cholecalciferol 1000 intl units oral tablet 1 tablet = 1,000 International_Units, By Mouth, Daily, # 30 tablet, 11 Refills, Maintenance, 02/18/23 7:13:00 EDT, Tablet, [facility], 164, cm, 01/19/23 15:23:00 EDT, Height, 68.18, kg, 01/15/23 10:48:00 EDT, Dry Weight Start Date: 02/18/23 Status: Ordered Descovy 200 mg-25 mg oral tablet 1 tablet, By Mouth, Daily, # 30 tablet, 3 Refills, Maintenance, 11/18/22 18:13:00 EST, Tablet, [facility], 1 tablet By Mouth Daily,x30 days, 164, cm, 11/18/22 16:28:00 EST, Height, 73, kg, 05/23/21 15:48:00 EDT, Dry Weight Start Date: 11/18/22 Stop Date: 03/18/23 Status: Ordered dolutegravir 50 mg oral tablet 1 tablet = 50 mg, By Mouth, Daily, # 30 tablet, 3 Refills, Maintenance, 11/18/22 18:13:00 EST, Tablet, [facility], 164, cm, 11/18/22 16:28:00 EST, Height, 73, kg, 05/23/21 15:48:00 EDT, Dry Weight Start Date: 11/18/22 Stop Date: 03/18/23 Status: Ordered Flonase 50 mcg/inh nasal spray 1 sprays, Nares, Both, 2 times a day, # 16 Gm, 0 Refills, Maintenance, 01/01/23 9:25:00 EST, Herman,[facility], Partial fill upon patient [...] 4 Refills, Maintenance,07/08/22 13:18:00 EDT, Tablet, [facility], 164, cm, 05/23/21 15:48:00 EDT, Height,73, kg, 05/23/21 15:48:00 EDT, Dry Weight Start Date: 07/08/22 Status: Ordered metFORMIN 500 mg oral tablet 1 tablet = 500 mg, By Mouth, Daily, # 30 tablet, 4 Refills, Maintenance, 12/18/22 16:42:00 EST, Tablet, [facility], 164, cm, 11/18/22 16:28:00 EST, [...] 3 Refills, Maintenance, 01/19/23 14:48:00 EDT, [facility], For constipation: one capful by mouth, every day, tit... Start Date: 01/19/23 Status: Ordered mirtazapine 15 mg oral tablet 1 tablet = 15 mg, By Mouth, Daily at bedtime, # 90 tablet, 1 Refills, Maintenance, 01/16/23 11:22:00 EDT, Tablet, [facility], Partial fill upon patient request if the prescription isfor a schedule II opioid drug., 164, cm, 01/15/23 1... Start Date: 01/16/23 Stop Date: 02/15/23 Status: Ordered nicotine 14 mg/24 hr transdermal film, extended release 1 patch, Topically, Daily, # 30 patch, 1 Refills, Maintenance, 02/23/23 4:50:00 EDT, Patch, [facility], Partial fill upon patient request if the prescription is for a schedule II opioid drug., 1 patch Topically Daily, 164, cm, ... Start Date: 02/23/23 Status: Ordered omeprazole 40 mg oral enteric coated capsule 1 capsule = 40 mg, By Mouth, 2 times a day, # 60 capsule, 11 Refills, Maintenance, 03/19/22 10:38:00 EDT, EC Capsule, [facility], dose increased, 164, cm, 05/23/21 [...] capsule, 1 Refills, Maintenance, 01/16/23 11:21:00 EDT, [facility], Partial fill upon patient [...] 11:16:00 EDT, Route to Pharmacy Electronically, [facility], Partial fill upon patient request... Start Date: 01/15/23 Stop Date: 06/14/23 Status: Ordered sertraline 50 mg oral tablet 1 tablet = 50 mg, By Mouth, Daily, # 90 tablet, 1 Refills, Maintenance, 01/01/23 17:40:00 EST, Tablet, [facility], Partial fill upon patient request if the prescription is for a schedule II opioid drug., 164, cm, 01/01/23 8:52:00 EST,... Start Date: 01/01/23 Status: Ordered topiramate 50 mg oral tablet 1 tablet = 50 mg, By Mouth, 2 times a day, # 60 tablet, 7 Refills, Maintenance, 01/15/23 11:16:00 EDT, Tablet, [facility], 164, cm, 01/15/23 10:48:00 EDT, Height, 68.18, kg, 01/15/2310:48:00 EDT, Dry Weight Start Date: 01/15/23 Stop Date: 09/12/23 Status: Ordered Ventolin HFA 108 mcg/inh inhalation aerosol with adapter 2 puffs, Inhalation, Every 4 hours, PRN for wheezing, # 2 each, 5 Refills, Maintenance, 01/15/23 11:10:00 EDT, Aerosol, [facility], 164, cm, 01/15/23 10:48:00 EDT, [...] use Confirmed Active Opiate addiction Confirmed Active *[phone] 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 Marcella Sargent Confirmed Active Breast cancer screening Confirmed Active Polysubstance abuse Confirmed Active PTSD (post-traumatic stress disorder) Confirmed Active Social History Social History Type Response Smoking Status 10 or more cigarette s (1/2 pack or more)/day in last 30 days; Other: pack a day; entered on: 11/18/22 Sex Cardiology * Event Display: Non BH Cardiovascular Results Authored Date: * Event Display: Non BH Cardiovascular Results Authored Date: Laboratory * Event Display: Non BH Lab Results Authored Date: * Event Display: Non BH Lab Results Authored Date: * Event Display: Non BH Lab Results Authored Date: Radiology * Event Display: X-Ray Chest, Non- BH Authored Date: MG Breast Views * Event Display: MM Mammogram, Non- BH Authored Date: Patient Care team information Care Team Personnel Name: Too MARINO, Raina Donahue Position: [facility] Associate Professional Member Role: Primary Care Nurse Address: Address: [address] [place] [id number]- Name: Joss Augustine MD Position: [facility] Physician - Primary Care Member Role: PCP Address: Address: [address] [place] [id number]- Name: Radha Murillo RN Position: [facility] Hospital [employer] Consultant Member Role: Primary Care Nurse Care Team Related Persons Name: SARWAT PEARL Address: [address] [place] [address] Name: CRYSTAL PEARL Address: [address] [place] [address] Name: VÍCTORDARRICK RODAS
--- OUTSIDE RECORDS SUMMARY | 2023-05-22 15:36 | XMS_ITS | Continuity of Care Document ---
Author Name Unknown Organization [facility] Address [address] [place] [id number]- Care Team Providers Care Retail Support Associate Name Role Phone Fawn REAL, Joss Martin Primary Care Physician Encounter [facility] Date(s): 12/26/20 - 01/25/21 [facility]/[address] [address]- Allergies, Adverse Reactions, Alerts Substance Reaction Severity [...] tablet, 11 Refills, Maintenance, 02/13/20 12:00:00 EDT, [facility], 163, cm, 12/30/19 8:46:00 EST, Height, 81.1, kg, 12/23/19 11:40:00 EST, Dry Weight Start Date: 02/13/20 Status: Ordered cholecalciferol 1000 intl units oral tablet 1 tablet = 1,000 International_Units, By Mouth, Daily, # 30 tablet, 11 Refills, Maintenance, 07/23/20 17:03:00 EDT, Tablet, Trish [id number] ([facility]), 163, cm, 07/23/20 13:59:00 EDT, Height, 80.45, kg, 07/19/20 11:52:00 EDT, Dry Weight Start Date: 07/23/20 Status: Ordered Descovy 200 mg-25 mg oral tablet 1 tablet, By Mouth, Daily, # 30 tablet, 5 Refills, Maintenance, 08/20/20 16:10:00 EDT, Tablet, [facility], 1 tablet By Mouth Daily,x30 days, 163, cm, 07/23/20 13:59:00 EDT, Height, 80.45, kg, 07/19/20 11:52:00 EDT, Dry Weight Start Date: 08/20/20 Stop Date: 02/16/21 Status: Ordered dolutegravir 50 mg oral tablet 1 tablet = 50 mg, By Mouth, Daily, # 30 tablet, 5 Refills, Maintenance, 06/19/20 11:52:00 EDT, Tablet, [facility], 163, cm, 12/30/19 8:46:00 EST, [...] EDT, Route to Pharmacy Electronically, [id number] ([id number]), 163, cm, 07/23/20 13:59:00 EDT, Height, 80.45, kg, 07/19/20 1... Start Date: 07/23/20 Status: Ordered melatonin 5 mg oral tablet 1 tablet = 5 mg, By Mouth, Daily at bedtime, PRN for insomnia, # 60 tablet, 11 Refills, Maintenance, 05/14/20 14:54:00 EDT, Tablet, [facility], 163, cm, 12/30/19 8:46:00 EST, Height,81.1, kg, 12/23/19 11:40:00 EST, Dry Weight Start Date: 05/14/20 Status: Ordered metFORMIN 500 mg oral tablet 1 tablet = 500 mg, By Mouth, Daily, # 30 tablet, 11 Refills, Maintenance, 03/13/20 17:35:00 EDT, Tablet, [facility], 163, cm, 12/30/19 8:46:00 [...] 15:14:00 EST, 12/04/20 15:13:00 EST, REC Powder, [facility], Partial fill upon patient request if the prescription is for a schedule II opi... Start Date: 12/04/20 Stop Date: 09/05/21 Status: Ordered omeprazole 40 mg oral enteric coated capsule 1 capsule = 40 mg, By Mouth, 2 times a day, # 60 capsule, 11 Refills, Maintenance, 02/13/20 12:00:00 EDT, EC Capsule, [facility], dose increased, 163, cm, 12/30/19 8:46:00 EST, [...] 11 Refills, Maintenance, 05/14/20 14:54:00 EDT, Tablet, [facility], 163, cm, 12/30/19 8:46:00 EST, Height, 81.1, kg, 12/23/19 11:40:00 EST, Dry Weight Start Date: 05/14/20 Stop Date: 05/09/21 Status: Ordered Ventolin HFA 108 mcg/inh inhalation aerosol with adapter 2 puffs, Inhalation, Every 4 hours, PRN for wheezing, # 3 each, 3 Refills, Maintenance, 12/26/20 12:47:00 EST, Aerosol, [facility], 163, cm, 07/23/20 13:59:00 EDT, [...] Active Heroin use(Confirmed) Active Opiate addiction(Confirmed) Active *[phone] Care Partn rell [place](Confirmed) Active Polysubstance abuse(Confirmed) Active PTSD (post-traumatic stress disorder)(Confirmed) Active Social History Social History Type Response Smoking Status 10 or more cigarette s (1/2 pack or more)/day in last 30 days; Tobacco user in household: Yes entered on: 07/19/20 Sex
[2023-05-22 15:49] VITALS: BP 99/61; PULSE 73; RESP 16; TEMP 36.8; O2SAT 99
--- NOTE | 2023-05-22 16:01 | PC.NURSE ---
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 Stated she does not have pain to her head but it feels like a pulsating pressure. + PERRCHRYSTAL. stated this started 5 days ago while receiving treatment at a psych facility and has gradually increased daily.
--- NOTE | 2023-05-22 16:29 | ED.HA ---
HPI - Headache General Chief Complaint: Headache Stated Complaint: Dizziness/ Xtreme pressure Time Seen by Provider: 05/22/23 16:07 Source: patient Mode of arrival: EMS Limitations: no limitations History of Present Illness HPI Narrative: Patient is a 57-year-old male who presents emergency department via EMS coming from [facility] where she is admitted for inpatient psychiatric services. She was seen in the emergency department a few days ago with reports of headache, anxiety, and abdominal pressure. She states that today the headache has been persistent which brought her back. It is diffuse, and has been constant for the past 5 days. She also endorses persistent blurred vision. She reports a history of a cerebral aneurysm and has concerns about potential complications from this. She feels intermittently lightheaded. Right now she denies dizziness, lightheadedness, neck pain, neck stiffness, chest pain, shortness of breath, difficulty breathing, abdominal pain, nausea, vomiting, diarrhea, genitourinary symptoms, numbness or tingling of the extremities, or generalized weakness. She is feeling very anxious, is requesting something to help with her anxiety. Additionally, she reports that she feels constipated, with her last bowel movement having been 5 days ago, she is requesting medication to help with this at this time. Related Data Previous Rx's Medication Instructions Recorded hyoscyamine sulfate 0.125 mg tablet 0.125 mg PO QID PRN dyspepsia #10 05/19/23 tabs Allergies Allergy/AdvReac Type Severity Reaction Status Date / Time levonorgestrel-ethinyl Allergy Unknown ITCHY- Verified 05/19/23 21:44 estradiol SWOLLEN [From Seasonale] EYES Review of Systems Review of Systems: Constitutional : No Fever, No Chills, No Fatigue ENT/Mouth : No sore throat, No Rhinorrhea Eyes: No Eye Pain, No Swelling, No Redness Cardiovascular : No Chest Pain, No SOB, No Dyspnea on Exertion Respiratory : No Cough, No Sputum Gastrointestinal : No Nausea, No Vomiting, No Diarrhea, No abdominal Pain Genitourinary : No Dysuria, No Urinary Frequency, No Hematuria, Musculoskeletal : No joint pain, No Myalgias, No Joint Swelling Skin : No Skin Lesions, No rash Neuro : No Weakness, No Numbness, No Dizziness, positive Headache Psych : No Anxiety/Panic, No Depression Heme/Lymph: No Bruising, No Bleeding,No Lymphadenopathy Endocrine : No Polyuria, No Polydipsia Yes all other systems are reviewed and are negative [facility] Past Medical History Attestation statement: The following information was validated with the patient. Source: old records reviewed Medical History Anxiety and depression Social History Social History Alcohol intake: never Smoked in Last 30 Days: Yes Use of substances other than those prescribed or required for medical reasons: Yes Substance Use Type: Crack/Cocaine and Heroin Substance Use Frequency: Daily Last Used Substance: Weeks (ago) Any prior treatment program specific to substance use: Yes Advance Directives: No Advance Directives Information Provided: Yes Physical Exam Vital Signs: Vital Signs: Last Vital Signs Temp 98.3 F 05/22/23 18:00 Pulse 65 05/22/23 18:00 Resp 16 05/22/23 18:00 BP 99/62 05/22/23 18:00 Pulse Ox 97 05/22/23 18:00 O2 Del Method Room Air 05/22/23 18:00 BMI result Body Mass Index 24.6 Appearance: Alert.?Oriented to person, place and time. No acute distress.?Normal affect. Head: Normocephalic, atraumatic Eyes: Pupils equal, round and reactive to light. EOMI. No nystagmus. No tenderness to palpation over the temporal region. ENT: External auditory canal normal tympanic membrane pearly leonard and intact bilaterally. Oropharynx normal. Neck: Normal inspection.? Neck supple. CVS: Heart sounds normal. Normal heart rate and rhythm.? Pulses normal.?? Respiratory: No respiratory distress.? Lung sounds clear to auscultation bilaterally?? Abdomen: Soft and non-tender. Normoactive bowel sounds. ?? Skin: Skin warm and dry.? Normal skin color.? ?? Extremities: No lower extremity edema.? Neuro: Moves all extremities spontaneously. Sensation intact bilaterally. CN II-XII intact. No focal neuro deficits. Ambulatory with steady gait. Course Reevaluation(s) Reevaluation #1: CT head without contrast reveals no acute intracranial abnormalities, will obtain CT a head and neck for further evaluation, at this time low suspicion for meningitis, encephalitis, temporal arteritis. Reviewed this case with ED attending Dr. Lobato, agrees with plan of care Time: 17:04 Reevaluation #2: CT angio of the head and neck is without any acute abnormalities. She is tolerating oral intake, ambulatory with a steady gait, remains without any focal neurological deficits, and declines wanting any pain medication for head pressure. Anxiety is better controlled after receiving lorazepam. At this time feel the patient is stable for discharge back to [facility]. Time: 19:15 Medications Administered Discontinued Medications Generic Name Dose Route Start Last Admin Trade Name Gonzalez PRN Reason Stop Dose Admin Iohexol 100 ml 05/22/23 17:59 05/22/23 17:59 Iohexol 350 Mg/Ml 100 Ml Infus..Btl IV 05/22/23 18:00 70 ml ONCE ONE Administration Lorazepam 1 mg 05/22/23 16:27 05/22/23 16:42 Lorazepam 1 Mg Tablet PO 05/22/23 16:28 1 mg ONCE ONE Administration Polyethylene Glycol 17 gm 05/22/23 16:21 05/22/23 16:42 Polyethylene Glycol 3350 17 Gm Powd.Pack PO 05/22/23 16:22 17 gm ONCE ONE Administration Medical Decision Making Medical Decision Making [facility] Narrative: Patient is a 57-year-old female with reported past medical history of anxiety, depression, cerebral aneurysm presenting to emergency department for evaluation of headache as per HPI. At the time of my examination she is overall well-appearing, no focal neurological deficits, NIH Stroke Scale of 0. There is no meningismus, she is afebrile and without tachycardia. She speaking clear full sentences. Headache does not appear exacerbated or worsened by exertion, she is however reporting vision changes and she is over the age of 50 with reported cerebral aneurysm, therefore well obtain CT of the head for further evaluation. She was offered medication to help with her headache however she declines at this time. Requesting medication to help with her anxiety for which I have ordered lorazepam orally, she is also expressing concerns of constipation for which I have ordered MiraLax for her, her abdominal examination is benign, I have a low suspicion for diverticulitis, colitis, bowel obstruction, would defer CT of the abdomen at this time. Differential Diagnosis Differential Diagnoses: The differential diagnosis associated with the presentation includes (SDH, SAH, ICH, LOFT WORKER HEAD mass, meningitis, encephalitis, CVA, GCA, migraine, headache) Admission/Observation Consideration of admission/observation: Escalation of care including admission/observation considered (I considered hospital admission for intractable headache, see course for further detail) Lab Data MDM Lab Attestation statement: I reviewed the patient's lab results. CBC reveals a normocytic anemia consistent with her baseline, BUN creatinine are consistent with baseline as well otherwise unremarkable CMP. 05/22/23 16:06 05/22/23 16:06 Labs: Lab Results 05/22/23 05/22/23 Range/Units 16:06 16:06 WBC 4.9 (4.8-10.8) X10*3/uL RBC 3.49 L (4.20-5.50) X10*6/uL Hgb 10.8 L (12.0-16.0) g/dl Hct 32.6 L (37.0-47.0) % MCV 93.4 (80.0-98.0) fL MCH 30.9 (27.0-33.0) pg MCHC 33.1 (31.0-35.0) g/dl RDW 13.6 (11.0-16.0) % Plt Count 265 (160-400) X10*3/uL MPV 9.8 (9.4-12.3) fL Immature Gran % (Auto) 0.4 (0.0-0.4) % Neut % (Auto) 40.4 L (45-73) % Lymph % (Auto) 44.2 H (20-40) % Finney % (Auto) 11.2 H (2-11) % Eos % (Auto) 3.0 (0-4) % Baso % (Auto) 0.8 (0-2) % Lymph # (Auto) 2.2 (1.2-4.9) X10*3/uL Finney # (Auto) 0.6 (0.1-1.2) X10*3/uL Eos # (Auto) 0.2 (0.0-0.4) X10*3/uL Baso # (Auto) 0.0 (0.0-0.2) X10*3/uL Abs Immat Gran (auto) 0.02 (0.00-0.03) X10*3/uL Absolute Neuts (auto) 2.0 (2.0-8.3) x10*3/uL Absolute Nucleated RBC 0.000 (0.0-0.012) X10*3/uL Nucleated RBC % (auto) 0.0 (0.0-0.2) /100WBC Sodium 139 (135-145) mmol/L Potassium 4.4 (3.3-5.1) mmol/L Chloride 105 (96-108) mmol/L Carbon Dioxide 25 (22-29) mmol/L Anion Gap 13 (12-20) BUN 28 H (9-16) mg/dL Creatinine 1.02 (0.5-1.4) mg/dL Estim Creat Clear Calc 52.5 Estimated GFR 56 Random Glucose 118 H (60-115) mg/dL Calcium 9.2 (8.4-10.2) mg/dL Total Bilirubin 0.2 (0.0-1.0) mg/dL AST 22 (5-31) U/L ALT 23 (0-31) U/L Alkaline Phosphatase 73 (39-117) U/L Total Protein 6.3 L (6.5-8.0) g/dL Albumin 3.7 (3.5-5.0) g/dL Radiology Impression Discussion of test interpretation with radiology: I have reviewed the radiologist's reading. Radiologist Impression: CT/CT head/brain wo IV con IMPRESSION: No acute intracranial pathology. CT/CT angio head neck IMPRESSION: No acute intracranial findings. ? Unremarkable CT of the head and neck. A tapered 1.5 mm vascular excrescence at the origin of the left posterior communicating artery most likely reflects an infundibulum. An aneurysm is felt to be much less likely. There is junctional prominence of the A1/A2 junctions. Discharge Plan Discharge Clinical Impression: Headache, Anxiety Patient Disposition: Xfer Psychiatric Hosp Transfer Details: [facility] Instructions: Acute Headache (ED), Anxiety (ED) Additional Instructions: Blood work and head CT today were without any acute abnormal findings. Prescriptions: No Action hyoscyamine sulfate 0.125 mg tablet 0.125 mg PO QID PRN (Reason: dyspepsia) Qty: 10 0RF
[2023-05-22 16:30] LABS: MANUAL DIFF FLAG NO
[2023-05-22 16:31] LABS: Basophils Percent Auto 0.8 % (0-2); Eosinophils Absolute Auto 0.2 X10*3/uL (0.0-0.4); Hematocrit 32.6 % (37.0-47.0); Hemoglobin 10.8 g/dl (12.0-16.0); Imm Gran Abs Auto 0.02 X10*3/uL (0.00-0.03); Imm Gran Pct Auto 0.4 % (0.0-0.4); Lymphocytes Absolute Auto 2.2 X10*3/uL (1.2-4.9); Lymphocytes Percent Auto 44.2 % (20-40); Mean Corpuscular HGB Conc 33.1 g/dl (31.0-35.0); Mean Corpuscular Hemoglobin 30.9 pg (27.0-33.0); Mean Corpuscular Volume 93.4 fL (80.0-98.0); Mean Platelet Volume 9.8 fL (9.4-12.3); Monocytes Absolute Auto 0.6 X10*3/uL (0.1-1.2); Monocytes Percent Auto 11.2 % (2-11); Neutrophils Percent Auto 40.4 % (45-73); Platelet Count 265 X10*3/uL (160-400); Red Blood Count 3.49 X10*6/uL (4.20-5.50); Red Cell Distribution Width 13.6 % (11.0-16.0); White Blood Count 4.9 X10*3/uL (4.8-10.8)
[2023-05-22] MEDS: polyethylene glycoL 3350 17 GM POWD.PACK PO (16:42)
[2023-05-22] MEDS: LORazepam 1 MG TABLET PO (16:42)
[2023-05-22 16:51] LABS: Alanine Aminotransferase 23 U/L (0-31); Albumin Level 3.7 g/dL (3.5-5.0); Alkaline Phosphatase 73 U/L (39-117); Anion Gap 13 (12-20); Aspartate Amino Transferase 22 U/L (5-31); Bilirubin Total 0.2 mg/dL (0.0-1.0); Blood Urea Nitrogen 28 mg/dL (9-16); Calcium 9.2 mg/dL (8.4-10.2); Carbon Dioxide 25 mmol/L (22-29); Chloride 105 mmol/L (96-108); Creatinine Clr Calc Pharmacy 52.5; Estimated Glomerular Filt Rate 56; Glucose Random 118 mg/dL (60-115); Potassium 4.4 mmol/L (3.3-5.1); Sodium 139 mmol/L (135-145); Total Protein 6.3 g/dL (6.5-8.0)
[2023-05-22] MEDS: iohexoL 350 MG/ML 100 ML INFUS..BTL IV (17:59)
[2023-05-22 18:00] VITALS: BP 99/62; PULSE 65; RESP 16; TEMP 36.8; O2SAT 97
[2023-05-22] MEDS: Acetaminophen 325 MG TABLET 975 MG PO (20:35)
[2023-05-22 21:10] VITALS: BP 96/52; PULSE 68; RESP 16; TEMP 36.7; O2SAT 96
[2023-05-22 22:00] VITALS: BP 98/57; PULSE 70; RESP 16; O2SAT 98
== END 2023-05-22 22:58 ==
PROVIDERS: Physician Assistant Medical; Emergency Provider Emergency Medicine Emergency Medical Services
DX: R51.9 Headache, unspecified (principal); R42 Dizziness and giddiness; M54.2 Cervicalgia; F41.1 Generalized anxiety disorder; F43.0 Acute stress reaction; Z79.899 Other long term (current) drug therapy
CPT/HCPCS: 36415; 70450; 70496; 70498; 80053; 85025; 99285; Q9967